=== PATIENT | female | born 1950 | race Caucasian/White ===

== ENCOUNTER 2020-05-25 14:21 | Outpatient (CLI) | payer OTHER, SELFPAY ==
--- NOTE | ~2020-05-25 | MM_ITS ---
EXAMINATION: MM screening teresa BI w ro HISTORY: Screening TECHNIQUE: Craniocaudal and mediolateral oblique 3-D tomosynthesis images were obtained and synthetic 2-D images were generated. CAD analysis was submitted and interpreted. COMPARISON: Comparison to multiple prior studies sequentially, with oldest reviewed study dated 09/2013. BREAST PARENCHYMAL COMPOSITION: The breasts are heterogeneously dense, which may obscure small masses . FINDINGS: There is no evidence of suspicious mass, calcification, or architectural distortion to sugg est malignancy in either breast. There has been no suspicious interval change. IMPRESSION: 1. No mammographic evidence of malignancy. 2. Recommend routine screening mammography in one year. BI-RADS Category 1: Negative Reviewed, dictated and finalized at location A.
== END 2020-05-25 14:22 | disposition home or self-care (01) ==
PROVIDERS: PCP Internal Medicine; Visit Provider Internal Medicine
DX: Z12.31 Encounter for screening mammogram for malignant neoplasm of breast (principal)
CPT/HCPCS: 77063; 77067

== ENCOUNTER 2020-07-18 01:15 | Emergency (ER) | payer OTHER, SELFPAY ==
--- NOTE | ~2020-07-18 | XR_ITS ---
EXAMINATION: XR ankle RT 2V DATE: 07/18/2020 02:24 INDICATION: Postreduction right ankle fracture TECHNIQUE: Anteroposterior, oblique, mortise, and lateral views of the right ankle were obtained. COMPARISON: None. FINDINGS: And/or reduction and splinting of the previously detailed comminuted fractures of the distal right ti aneudy and fibula. No significant change in the approximately 8 mm posterolateral displacement with slig ht decrease in now approximately 20 degrees lateral angulation. Normal alignment and joint spaces in the visualized right forefoot. Plantar calcaneal spur. IMPRESSION: 1. Mild decrease in now approximately 20 degrees lateral angulation and unchanged approximately 8 mm posterolateral displacement of the comminuted extra articular fractures of the distal right tibia and fibula. Reviewed, dictated and finalized at location A. IMPRESSION: 1. Mild decrease in now approximately 20 degrees lateral angulation and unchang ed approximately 8 mm posterolateral displacement of the comminuted extra artic ular fractures of the distal right tibia and fibula.
--- NOTE | ~2020-07-18 | XR_ITS ---
EXAMINATION: XR ankle RT min 3V DATE: 07/18/2020 01:48 INDICATION: Right ankle pain post fall TECHNIQUE: Anteroposterior, oblique, mortise, and lateral views of the right ankle were obtained. COMPARISON: None. FINDINGS: There are oblique fracture extending across the metaphyseal regions of the distal right tibia and fib adi. Both fractures are comminuted, the fibular fracture more severely. Both fractures are angulated approximately 30 degrees laterally along with 6-7 mm posterior displacement and mild anterior angulat ion. The distal fragments of the intervening talar dome remain in normal internal alignment with a co ngruent ankle mortise. No other fractures in the right foot. Joint spaces are normal. Large plantar c alcaneal spur and small Achilles calcaneal enthesophyte. IMPRESSION: 1. Comminuted extra-articular fractures of the distal right tibia and fibula. Reviewed, dictated and finalized at location A.
[2020-07-18 01:18] VITALS: BP 146/63; PULSE 82; RESP 18; TEMP 36.6; O2SAT 95
--- NOTE | 2020-07-18 02:06 | ED.FALL ---
HPI - Fall General Chief Complaint: Fall Stated Complaint: Fall Time Seen by Provider: 07/18/20 01:24 Source: RN notes reviewed History of Present Illness HPI Narrative: Patient presents emergency department from home for right ankle pain. Patient states that this evening she was stepping up onto her deck when she missed the step and rolled her right ankle. At that time the patient had pain in the ankle is unable to bear weight. She denies falling to the ground or striking her head denies any other injuries. The patient does state that she was drinking tonight. Patient denies any numbness or tingling in the extremities or any other symptoms Related Data Allergies Allergy/AdvReac Type Severity Reaction Status Date / Time amoxicillin Allergy Unknown Abdominal Verified 07/31/19 13:39 pain erythromycin base Allergy Unknown Verified 07/31/19 13:39 morphine Allergy Unknown Verified 07/31/19 13:39 clavulanic acid AdvReac Mild GI UPSET Unverified 07/31/19 13:39 Penicillins AdvReac Mild GI UPSET Unverified 07/31/19 13:39 BETALACTAMASEIN Allergy Mild GI UPSET Uncoded 07/31/19 13:39 Review of Systems Review of Systems: Narrative: Gen.: Denies fevers or chills ENT: Denies congestion Respiratory: Denies shortness of breath or cough CV: Denies chest pain or palpitations GI: Denies abdominal pain nausea, emesis or diarrhea Musculoskeletal: See HPI Neuro: Denies numbness, tingling, weakness or focal weakness Skin: Denies rash Except as documented, all other systems reviewed and negative [facility] Past Medical History Medical History (Updated 07/18/20 @ 03:15 by Tushar Stephens DO) Accelerated essential hypertension Family History Family History (System 07/31/19 @ 13:39 by Leah Coker) Mother Hypertension Social History Social History (Updated 07/18/20 @ 02:08 by Tushar Stephens DO) Smoking status: Current some day smoker Second hand tobacco smoke exposure: No Alcohol intake: current Exam Narrative: Exam Narrative: APPEARANCE: No acute distress, nontoxic, resting in bed EYES: EOMI HEENT: Normocephalic, atraumatic, OMM RESPIRATORY: No respiratory distress Clear to auscultation bilaterally with no rhonchi wheezing or rales. CARDIOVASCULAR: Regular rate and rhythm without murmurs rubs or gallops. ABDOMINAL: Soft, nontender, MUSCULOSKELETAl: Moves all extremities. No clubbing, cyanosis right ankle has deformity noted with tenderness palpation there is no tenderness of the foot or the proximal fibula no tenderness of the right knee or hip, dorsalis pedis pulse 2+, neurovascular intact small overlying abrasion over the anterior medial ankle that is superficial with no deep open wound no bleeding no other small abrasion over the anterior garcia with no open wound or active bleeding NEURO: Awake and alert. Following commands, speech normal, no focal deficits SKIN:: Warm, dry. No rashes lesions or abrasions PSYCHIATRIC: Normal affect/mood, Course Course Emergency Course: Called and discussed with orthopedics Dr. Russell presentation work-up. I will review imaging. At this time recommends transfer to higher level of care secondary to orthopedic needs Discussed with patient request [facility] at this time Called and discussed with [facility] patient is accepted by Dr. Parish to the emergency department Vital Signs Vital signs: Vital Signs Temperature 98 F 07/18/20 01:18 Pulse Rate 82 07/18/20 01:18 Respiratory Rate 18 07/18/20 01:18 Blood Pressure 146/63 H 07/18/20 01:18 Pulse Oximetry 95 07/18/20 01:18 Temperature 98 F 07/18/20 01:18 Pulse Rate 80 07/18/20 03:20 Respiratory Rate 19 07/18/20 03:20 Blood Pressure 137/77 07/18/20 03:20 Pulse Oximetry 99 07/18/20 03:20 Procedures Orthopedic Splinting/Casting Injury #1: Additional Comments: Patient with posterior short leg and sugar tong splint placed by myself in the emergency department. Patient was
--- NOTE | 2020-07-18 03:02 | PC.NURSE ---
Called [facility] to request transport to [place]. ETA [id number]
[2020-07-18 03:20] VITALS: BP 137/77; PULSE 80; RESP 19; O2SAT 99
[2020-07-18 03:37] VITALS: BP 148/70; PULSE 80; RESP 16; O2SAT 99
--- NOTE | 2020-07-30 19:16 | PC.NURSE ---
LATE ENTRY [facility] This note is being entered to document information to the patient's record. The following information was omitted on [07/30/2020], by [mayur khan].
== END 2020-07-18 03:38 | disposition short-term general hospital (02) ==
PROVIDERS: Emergency Provider Emergency Medicine; PCP Internal Medicine
DX: S82.391A Other fracture of lower end of right tibia, initial encounter for closed fracture (principal); S82.831A Other fracture of upper and lower end of right fibula, initial encounter for closed fracture; I10 Essential (primary) hypertension; F17.200 Nicotine dependence, unspecified, uncomplicated; X50.9XXA Other and unspecified overexertion or strenuous movements or postures, initial encounter
CPT/HCPCS: 27788; 27825; 27840; 29515; 73600; 73610; 96374; 99285; J0131

== ENCOUNTER 2020-08-22 19:03 | Emergency (ER) | payer OTHER, SELFPAY ==
[2020-08-22] VITALS (18 sets, daily range): BP systolic 137–159; BP diastolic 71–105; PULSE 71–95; RESP 11–23; TEMP 36.2; O2SAT 95–99
--- NOTE | ~2020-08-22 | XR_ITS ---
EXAMINATION: XR chest 1V DATE: 08/22/2020 19:42 INDICATION: Weakness. Dizziness. TECHNIQUE: A single frontal view of the chest was obtained. COMPARISON: Chest 2 views 05/07/2014, CT abdomen 08/04/2014, chest CT 10/06/2009 FINDINGS: There are chronic airspace opacities in right middle lobe and lingula. No pleural effusion or pneumothorax. The heart size is normal. IMPRESSION: 1. Chronic airspace opacities in right middle lobe and lingula, likely chronic infection and scarring . Reviewed, dictated and finalized at location A. [employer] IMPRESSION: 1. Chronic airspace opacities in right middle lobe and lingula, likely chronic infection and scarring.
--- NOTE | ~2020-08-22 | CT_ITS ---
EXAMINATION: CT brain wo con DATE: 08/22/2020 19:37 INDICATION: Dizziness. TECHNIQUE: Computed tomography (CT) of the head was performed without intravenous contrast. The mA wa s adjusted according to patient size. Iterative reconstruction technique was employed. The dose-lengt h product was 605.33 mGy-cm. COMPARISON: None FINDINGS: There are scattered areas of low attenuation in the cerebral white matter, which is within normal limits for the patient's age. There is no intracranial hemorrhage, acute infarction, or abnorm al intracranial mass lesion. The ventricles are normal in size. There is mild mucosal thickening in t he paranasal sinuses. There are likely changes of ocular lens replacement surgeries. The mastoid air cells are normal. IMPRESSION: 1. Normal aging brain. Reviewed, dictated and finalized at location A. HORE WIND OPERATIONS MANAGER IMPRESSION: 1. Normal aging brain.
--- NOTE | 2020-08-22 19:21 | ECG_ITS ---
Measurements Intervals [place] Rate: 82 P: 46 UT: 144 QRS: 4 QRSD: 82 T: 56 QT: 415 QTc: 485 Interpretive Statements SINUS RHYTHM POSSIBLE LEFT ATRIAL ENLARGEMENT CANNOT RULE OUT SEPTAL INFARCT, AGE INDETERMINATE BORDERLINE ST-T WAVE ABNORMALITY- INF/LAT LEADS ABNORMAL ECG Electronically Signed On 08-23-2020 7:17:13 FUEL CELL ENGINEER by Addy Samson D.O.
--- NOTE | 2020-08-22 19:24 | ED.GENADULT ---
HPI - General Adult General Chief complaint: Nausea/Vomiting/Diarrhea Stated complaint: dizzy, headache, nausea Time Seen by Provider: 08/22/20 19:15 History of Present Illness HPI narrative: Patient is a 70-year-old female who presents emerge department with chief complaint of dizziness. Patient reports symptoms began this morning approximately 5 AM when she woke up. Patient describes the dizziness as a lightheaded sensation and also reports that she feels nauseated. Patient denies rotational symptoms denies fever denies chills denies cough shortness of breath or chest pain. Patient reports has had no diarrhea reports no recent illness. The patient reports she has a past medical history significant for hypertension and takes losartan and hydrochlorothiazide. Related Data Allergies Allergy/AdvReac Type Severity Reaction Status Date / Time amoxicillin Allergy Unknown Abdominal Verified 08/22/20 19:22 pain erythromycin base Allergy Unknown Gastrointestinal Verified 08/22/20 19:22 Upset morphine Allergy Unknown Gastrointestinal Verified 08/22/20 19:22 Upset clavulanic acid AdvReac Mild GI UPSET Verified 08/22/20 19:22 Penicillins AdvReac Mild GI UPSET Verified 08/22/20 19:22 BETALACTAMASEIN Allergy Mild GI UPSET Uncoded 07/31/19 13:39 Review of Systems Review of Systems: Narrative: CONSTITUTIONAL: Denies fever, chills, or sweats. EYES: Denies visual changes, redness, or discharge. ENT: Denies rhinorrhea, congestion, sore throat, or otalgia. CARDIOVASCULAR: Denies chest pain, palpitations, or edema. RESPIRATORY: Denies cough or dyspnea. GASTROINTESTINAL: Denies abdominal pain, nausea, vomiting, or diarrhea. GENITOURINARY: Denies dysuria or hematuria. SKIN: Denies rash or itching. MUSCULOSKELETAL: Denies back pain, joint pain, or myalgia. NEUROLOGIC: Denies headache, numbness, or weakness. PSYCHIATRIC: Denies anxiety or depression. A 10 system review of systems was completed on the patient and is negative except for what is stated in the HPI. Nursing and ancillary documentation was reviewed. [facility] Past Medical History Medical History Accelerated essential hypertension Family History Family History Mother Hypertension Social History Social History Smoking status: Current some day smoker Second hand tobacco smoke exposure: No Alcohol intake: current Exam Narrative: Exam Narrative: GENERAL: Well-appearing, well-nourished, and in no acute distress. HEAD: Normocephalic, atraumatic. EYES: PERRLA and EOMI. ENT: Nares clear, no rhinorrhea or epistaxis. Mucous membranes moist. NECK: Supple. CHEST: Clear to auscultation. No respiratory distress. HEART: Regular rate and rhythm. No murmur heard. Normal peripheral pulses. ABDOMEN: Soft, nontender, nondistended, normal active bowel sounds. EXTREMITIES: Normal range of motion. No edema. SKIN: Warm, dry, no rash. NEURO: No focal deficits. Alert and oriented x3. PSYCH: Normal mood and affect. Course Course Emergency Course: After fluids Antivert and antiemetics the patient is feeling much better at this time patient will be discharged home on a course of Antivert and antiemetics. Vital Signs Vital signs: Vital Signs Temperature 36.2 C L 08/22/20 19:08 Pulse Rate 95 08/22/20 19:08 Respiratory Rate 20 08/22/20 19:08 Blood Pressure 137/79 08/22/20 19:08 Pulse Oximetry 98 08/22/20 19:08 Temperature 36.2 C L 08/22/20 19:08 Pulse Rate 72 08/22/20 21:45 Respiratory Rate 14 08/22/20 21:32 Blood Pressure 147/71 H 08/22/20 21:32 Pulse Oximetry 97 08/22/20 20:45 Medical Decision Making Vital Signs Vital Signs: Vital Signs Temperature 36.2 C L 08/22/20 19:08 Pulse Rate 95 08/22/20 19:08 Respiratory Rate 20 08/22/20 19:08 Blood Pr
--- NOTE | 2020-08-22 19:31 | PC.NURSE ---
Patient taken to CT.
[2020-08-22] MEDS: MECLIZINE HCL 25 MG TABLET 50 MG PO (19:43)
[2020-08-22] MEDS: PROCHLORPERAZINE EDISYLATE 10 MG/2 ML VIAL IV PUSH (19:43)
[2020-08-22] MEDS: SODIUM CHLORIDE 0.9% IV 1,000 ML 999 ML IV CONT (19:43)
[2020-08-22] MEDS: diphenhydrAMINE HCl INJ 50 MG/ML VIAL 25 MG IV PUSH ×2 (19:44→21:05)
[2020-08-22 19:55] LABS: Basophils Percent Auto 0.2 % (0.2-1.2); Eosinophils Absolute Auto 0.1 K/mm3 (0-0.3); Eosinophils Percent Auto 0.6 % (0-4.4); Hematocrit 36.6 % (37.0-47.0); Hemoglobin 12.7 g/dL (12.0-15.0); Immature Granulocyte Absolute 0.03 K/mm3 (0.00-0.031); Immature Granulocyte Percent A 0.3 % (0-0.5); Lymphocytes Absolute Auto 2.45 K/mm3 (0.9-3.2); Lymphocytes Percent Auto 27.7 % (18.3-44.2); Mean Corpuscular HGB Conc 34.7 g/dl (32-36); Mean Corpuscular Hemoglobin 33.2 pg (26-34); Mean Corpuscular Volume 95.8 fl (80-100); Mean Platelet Volume 10.4 fl (7.4-10.4); Monocytes Absolute Auto 0.7 K/mm3 (0.1-0.6); Monocytes Percent Auto 8.2 % (2.6-8.5); Neutrophils Absolute Auto 5.6 K/mm3 (1.3-6.7); Platelet Count Result 249 k/mm3 (150-375); Red Blood Count 3.82 M/mm3 (4.2-5.4); Red Cell Distribution Width 11.8 % (11.5-14.5); White Blood Count 8.9 K/mm3 (4.5-10.0)
[2020-08-22 20:06] LABS: Alanine Aminotransferase 21 U/L (4-35); Albumin Level 4.3 g/dL (3.5-5.1); Alkaline Phosphatase 149 U/L (38-126); Anion Gap 15 mmol/L (8-16); Aspartate Amino Transferase 39 U/L (14-36); Bilirubin,Total 0.5 mg/dL (0.2-1.3); Blood Urea Nitrogen 13 mg/dL (7-17); Carbon Dioxide 21 mmol/L (22-30); Chloride 99 mmol/L (98-107); Estimated CRCL calculation 63 ml/min; Estimated Glomerular Filt Rate > 60; Glucose 124 mg/dL (65-105); Potassium 3.6 mmol/L (3.4-5.0); Sodium 135 mmol/L (137-145)
--- NOTE | 2020-08-22 20:16 | PC.NURSE ---
Patient unable to provide a urine sample at this time. Patient refusing straight cath.
[2020-08-22 20:18] LABS: Troponin I < 0.012 ng/mL (0.000-0.034)
[2020-08-22 21:06] LABS: Add Urine Microscopic? YES; Appearance Urine Clear (Clear); Bacteria Urine Trace /hpf; Bilirubin Urine Negative (Negative); Blood Urine Negative (Negative); Color Urine Yellow (Yellow); Glucose Urine UA Negative (Negative); Ketones Urine 1+ mg/dL (Negative); Leukocyte Esterase Ur Negative LEU/UL (Negative); Mucus Urine Rare /lpf; Nitrate Urine Negative (Negative); Protein Urine Negative (Negative); RBC Urine 0-2 /hpf (0-2); Specific Grav Ur 1.014 (1.001-1.035); Squamous Epithelial Cell Urine Few /hpf (Few); Urobilinogen Urine Negative mg/dL (<2.0); WBC Urine 0-3 /hpf
[2020-08-22] MEDS: LORazepam INJ (*CRX) 2 MG/ML VIAL 0.5 MG IV PUSH (21:49)
== END 2020-08-22 22:14 | disposition home or self-care (01) ==
PROVIDERS: Emergency Provider Emergency Medicine; PCP Internal Medicine
DX: R42 Dizziness and giddiness (principal); I10 Essential (primary) hypertension; F17.200 Nicotine dependence, unspecified, uncomplicated
CPT/HCPCS: 36415; 70450; 71045; 80053; 81001; 84484; 85025; 93005; 96361; 96374; 96375; 96376; 99284; A9270; J0780; J1200; J2060; J7030

== ENCOUNTER 2020-10-12 16:33 | Emergency (ER) | payer OTHER, SELFPAY ==
--- NOTE | ~2020-10-12 | XR_ITS ---
EXAMINATION: XR chest 1V portable INDICATION: Chest pain and shortness of breath TECHNIQUE: Portable AP chest at 2023 hours COMPARISON: 08/22/2020 FINDINGS: There are minimal airspace opacities of the lung bases. No pleural effusion or pneumothorax is identified. The cardiomediastinal silhouette is normal. Healed bilateral rib fractures are noted. IMPRESSION: 1. Minimal bibasilar airspace opacities, consistent with atelectasis versus pneumonia. Reviewed, dictated and finalized at location A. ENTIVE MEDICINE OFFICER IMPRESSION: 1. Minimal bibasilar airspace opacities, consistent with atelectasis versus pne umonia.
--- NOTE | ~2020-10-12 | CT_ITS ---
EXAMINATION: CTA chest PE protocol DATE: 10/12/2020 21:31 INDICATION: Chest pain TECHNIQUE: Computed tomography angiography (CTA) of the chest was performed with 100 mL Omnipaque-350 intravenous contrast timed to evaluate the pulmonary arteries. Coronal maximum intensity projection 3D-reconstructions were created by the technologist. The dose-length product (DLP) was 267.69 mGy-cm. Automated exposure control and iterative reconstruction technique were employed. COMPARISON: 07/02/2008 FINDINGS: The pulmonary arteries are well-opacified. No pulmonary embolism is identified. There is mi ld emphysema. Patchy airspace opacities are present throughout the lungs. There is no pleural effusio n or pneumothorax. A moderate-sized sliding hiatal hernia is present. There is circumferential wall t hickening of the distal esophagus. There is mild right hilar lymphadenopathy. The heart size is david l. Calcified coronary artery atherosclerosis is noted. There are changes of fundoplication. IMPRESSION: 1. No pulmonary embolism. 2. Patchy multifocal airspace opacities, consistent with pneumonia. Mild right hilar lymphadenopathy is likely reactive. 3. Moderate-sized hiatal hernia. 4. Circumferential esophageal wall thickening which may reflect esophagitis. Follow-up with endoscopy is recommended. Reviewed, dictated and finalized at location A. ER CONTORT OPERATOR IMPRESSION: 1. No pulmonary embolism. 2. Patchy multifocal airspace opacities, consistent with pneumonia. Mild right hilar lymphadenopathy is likely reactive. 3. Moderate-sized hiatal hernia. 4. Circumferential esophageal wall thickening which may reflect esophagitis. Fo llow-up with endoscopy is recommended.
--- NOTE | 2020-10-12 16:33 | ECG_ITS ---
Measurements Intervals [place] Rate: 107 P: 59 SC: 140 QRS: 37 QRSD: 89 T: 18 QT: 413 QTc: 553 Interpretive Statements SINUS TACHYCARDIA POSSIBLE LEFT ATRIAL ENLARGEMENT BASELINE ARTIFACT- I, II, III, AVR, AVL, AVF, V1-V6 ABNORMAL ECG Electronically Signed On 10-12-2020 16:48:46 RACK WORKER by Addy Samson D.O.
[2020-10-12 16:35] VITALS: BP 171/100; PULSE 110; RESP 20; TEMP 35.9; O2SAT 100
[2020-10-12 16:49] LABS: Basophils Absolute Auto 0.1 K/mm3 (0.0-0.1); Basophils Percent Auto 0.4 % (0.2-1.2); Eosinophils Percent Auto 0.1 % (0-4.4); Hematocrit 39.7 % (37.0-47.0); Hemoglobin 13.2 g/dL (12.0-15.0); Immature Granulocyte Absolute 0.04 K/mm3 (0.00-0.031); Immature Granulocyte Percent A 0.3 % (0-0.5); Lymphocytes Absolute Auto 1.02 K/mm3 (0.9-3.2); Lymphocytes Percent Auto 8.1 % (18.3-44.2); Mean Corpuscular HGB Conc 33.2 g/dl (32-36); Mean Corpuscular Hemoglobin 33.2 pg (26-34); Mean Platelet Volume 9.8 fl (7.4-10.4); Monocytes Absolute Auto 0.5 K/mm3 (0.1-0.6); Neutrophils Percent Auto 87.1 % (45.5-73.1); Platelet Count Result 256 k/mm3 (150-375); Red Blood Count 3.97 M/mm3 (4.2-5.4); Red Cell Distribution Width 15.4 % (11.5-14.5); White Blood Count 12.6 K/mm3 (4.5-10.0)
[2020-10-12 16:59] LABS: INR 0.9; Partial Thromboplastin Time 24.8 SECONDS (22.3-36.8); Prothrombin Time 12.8 Seconds (11.1-14.7)
[2020-10-12 17:01] LABS: Anion Gap 14 mmol/L (8-16); Blood Urea Nitrogen 18 mg/dL (7-17); Carbon Dioxide 22 mmol/L (22-30); Chloride 100 mmol/L (98-107); Estimated CRCL calculation 63 ml/min; Estimated Glomerular Filt Rate > 60; Glucose 193 mg/dL (65-105); Potassium 3.6 mmol/L (3.4-5.0); Sodium 136 mmol/L (137-145)
[2020-10-12 17:13] LABS: Troponin I < 0.012 ng/mL (0.000-0.034)
--- NOTE | 2020-10-12 19:55 | ED.GENADULT ---
HPI - General Adult General Chief complaint: Chest Pain Stated complaint: CP Time Seen by Provider: 10/12/20 19:48 Source: patient History of Present Illness HPI narrative: Patient is a 70 y/o female complaining of chest pain starting about 10:00 AM this morning. She describes her pain as aching and rates it as 10/10. She states that her pain radiates to her shoulders and back. There is no alleviating or exacerbating factor. She took TUMs which did not help. She denies any SOB, cough or fever. Related Data Allergies Allergy/AdvReac Type Severity Reaction Status Date / Time amoxicillin Allergy Unknown Abdominal Verified 08/22/20 19:22 pain erythromycin base Allergy Unknown Gastrointestinal Verified 08/22/20 19:22 Upset morphine Allergy Unknown Gastrointestinal Verified 08/22/20 19:22 Upset clavulanic acid AdvReac Mild GI UPSET Verified 08/22/20 19:22 Penicillins AdvReac Mild GI UPSET Verified 08/22/20 19:22 BETALACTAMASEIN Allergy Mild GI UPSET Uncoded 07/31/19 13:39 Review of Systems Constitutional: Constitutional: Denies chills, Denies fever(s), Denies headache(s) and Denies weakness Eyes: Eyes: Denies blurry vision ENT: Denies headache(s) and Denies neck pain Cardiovascular: Cardiovascular: Reports chest pain and Denies dyspnea Respiratory: Respiratory: Denies cough and Denies dyspnea Gastrointestinal: Gastrointestinal: Denies abdominal pain, Denies diarrhea, Denies nausea and Denies vomiting Genitourinary: Genitourinary: Denies hematuria and Denies dysuria Musculoskeletal: Musculoskeletal: Denies back pain and Denies neck pain Neurologic: Denies headache(s) and Denies weakness [facility] Past Medical History Medical History Accelerated essential hypertension Family History Family History Mother Hypertension Social History Social History Smoking status: Current some day smoker Second hand tobacco smoke exposure: No Alcohol intake: current Exam Const: General: no acute distress and well developed Orientation/consciousness: oriented to person, oriented to place, oriented to time and patient oriented x3 HENMT: Head: normocephalic Ears: external ears normal General nose exam: Normal external nose present Eyes: General: appearance normal, both eyes and all related structures Conjunctivae: conjunctivae normal Neck: Neck: normal visual inspection and full ROM Chest: Chest palpation & inspection: normal inspection of the chest and no tenderness Resp: Effort & Inspection: normal respiratory effort Auscultation: clear to auscultation bilaterally Cardio: Rate: regular rate Rhythm: regular rhythm GI: GI Palp: No abdominal tenderness and Yes Soft to palpation Skin: General skin exam: normal color and turgor normal Neuro: General: oriented to person, oriented to place, oriented to time and patient oriented x3 Cognition (Neuro): normal cognition Extrem: General: normal to inspection, full ROM and no pedal edema Psych: Appearance: grossly normal Mental Status: mental status grossly normal Affect: normal affect Course Vital Signs Vital signs: Vital Signs Temperature 35.9 C L 10/12/20 16:35 Pulse Rate 110 H 10/12/20 16:35 Respiratory Rate 20 10/12/20 16:35 Blood Pressure 171/100 H 10/12/20 16:35 Pulse Oximetry 100 10/12/20 16:35 Temperature 37.0 C 10/13/20 00:15 Pulse Rate 83 10/13/20 00:15 Respiratory Rate 16 10/13/20 00:15 Blood Pressure 172/84 H 10/13/20 00:15 Pulse Oximetry 96 10/13/20 00:15 Medical Decision Making Vital Signs Vital Signs: Vital Signs Temperature 35.9 C L 10/12/20 16:35 Pulse Rate 110 H 10/12/20 16:35 Respiratory Rate 20 10/12/20 16:35 Blood Pressure 171/100 H 10/12/20 16:35 Pulse Oximetry 100 10/12/20 16:35 Temperature 37.0 C 10/13/20 00:15
[2020-10-12 19:58] VITALS: BP 203/104; PULSE 98; RESP 26; O2SAT 100
[2020-10-12 20:00] VITALS: PULSE 94
[2020-10-12 20:24] LABS: D Dimer 1.35 ug/mL (<0.48)
[2020-10-12] MEDS: ASPIRIN 81 MG CHEWABLE TABLET 324 MG PO (20:42)
[2020-10-12] MEDS: LORazepam INJ (*CRX) 2 MG/ML VIAL 1 MG IV PUSH (20:43)
[2020-10-12] MEDS: NITROGLYCERIN OINTMENT 1 INCH DOSE TRANSDERM (20:43)
[2020-10-12 20:45] LABS: Troponin I 0.012 ng/mL (0.000-0.034)
[2020-10-12 21:10] VITALS: BP 192/104; PULSE 92; RESP 19; O2SAT 94
--- NOTE | 2020-10-12 21:24 | PC.NURSE ---
Patient to radiology
[2020-10-12] MEDS: LABETALOL HCL INJ 100 MG/20 ML VIAL 20 MG IV PUSH (21:44)
[2020-10-12 22:20] VITALS: BP 178/94; PULSE 78; RESP 19; O2SAT 98
[2020-10-12] MEDS: amLODIPine BESYLATE 5 MG TABLET 10 MG PO (23:02)
[2020-10-12] MEDS: BELLADONNA ALK/PHENOB ELIX 10 ML, MAG HYDROX/ALUMINUM HYD/SIMETH 30 ML, LIDOCAINE HCL 2... PO (23:03)
[2020-10-12 23:20] VITALS: BP 187/96; PULSE 77; RESP 15; O2SAT 98
[2020-10-12 23:44] LABS: Troponin I 0.028 ng/mL (0.000-0.034)
[2020-10-13 00:15] VITALS: BP 172/84; PULSE 83; RESP 16; TEMP 37; O2SAT 96
[2020-10-13 17:28] LABS: SARS-CoV-2 RNA PCR Positive
== END 2020-10-13 00:17 | disposition home or self-care (01) ==
PROVIDERS: Emergency Provider Emergency Medicine; PCP Internal Medicine
DX: U07.1 COVID-19 (principal); R07.9 Chest pain, unspecified; K20.90 Esophagitis, unspecified without bleeding; I10 Essential (primary) hypertension; F17.200 Nicotine dependence, unspecified, uncomplicated; R00.0 Tachycardia, unspecified; R94.31 Abnormal electrocardiogram [ECG] [EKG]; R91.8 Other nonspecific abnormal finding of lung field
CPT/HCPCS: 36415; 71045; 71275; 80048; 84484; 85025; 85380; 85610; 85730; 93005; 96374; 96375; 99284; A9270; C9803; J2060; Q9967; U0003; U0005

== ENCOUNTER 2021-03-12 11:31 | Outpatient (CLI) | payer OTHER, SELFPAY ==
--- NOTE | ~2021-03-12 | XR_ITS ---
XR chest 2V DATE: 03/12/2021 11:50 INDICATION: Dyspnea on exertion TECHNIQUE: PA and lateral views COMPARISON: 10/12/2020 CT pulmonary scan Portable AP chest on 10/12/2020 05/07/2014 PA and lateral chest FINDINGS: Bilateral hyperinflation suggesting COPD. Chronic middle lobe atelectasis, dating back to 05/07/2014.. There is minimal atelectasis or scarring at the lung bases. The lungs otherwise appear clear of infil trate or consolidation compared 05/07/2014. Normal heart size. Aortic tortuosity. Diffuse osteopenia. Old right seventh and 10th and left seventh and eighth rib healed fracture deformities. IMPRESSION: Bilateral hyperinflation suggesting COPD Chronic middle lobe atelectasis Minimal bibasilar atelectasis or scarring Reviewed, dictated and finalized at location A.
== END 2021-03-12 11:32 | disposition home or self-care (01) ==
LOC: ANHIMG 11:34
PROVIDERS: PCP Internal Medicine; Visit Provider Internal Medicine
DX: R06.00 Dyspnea, unspecified (principal); R91.8 Other nonspecific abnormal finding of lung field
CPT/HCPCS: 71046

== ENCOUNTER 2021-03-14 09:21 | Outpatient (CLI) | payer OTHER, SELFPAY ==
[2021-03-14 09:52] LABS: Alanine Aminotransferase 11 U/L (4-35); Albumin Level 4.6 g/dL (3.5-5.1); Alkaline Phosphatase 115 U/L (38-126); Anion Gap 10 mmol/L (8-16); Aspartate Amino Transferase 31 U/L (14-36); Bilirubin,Total 0.9 mg/dL (0.2-1.3); Blood Urea Nitrogen 21 mg/dL (7-17); Calcium 10.2 mg/dL (8.4-10.2); Carbon Dioxide 28 mmol/L (22-30); Chloride 103 mmol/L (98-107); Estimated Glomerular Filt Rate > 60; Glucose 87 mg/dL (65-105); Potassium 4.3 mmol/L (3.4-5.0); Sodium 141 mmol/L (137-145)
== END 2021-03-14 09:22 | disposition home or self-care (01) ==
PROVIDERS: PCP Internal Medicine; Visit Provider Internal Medicine
DX: I10 Essential (primary) hypertension (principal); Z79.899 Other long term (current) drug therapy
CPT/HCPCS: 36415; 80053

== ENCOUNTER 2021-04-11 12:37 | Outpatient (CLI) | payer OTHER, SELFPAY ==
[2021-04-11 12:59] LABS: Add Urine Microscopic? NO; Appearance Urine Clear (Clear); Bilirubin Urine Negative (Negative); Blood Urine Negative (Negative); Color Urine Yellow (Yellow); Glucose Urine UA Negative (Negative); Ketones Urine Negative (Negative); Leukocyte Esterase Ur Negative LEU/UL (Negative); Nitrate Urine Negative (Negative); Protein Urine Negative (Negative); Urobilinogen Urine Negative mg/dL (<2.0)
== END 2021-04-11 12:38 | disposition home or self-care (01) ==
LOC: ANHLAB 12:39
PROVIDERS: PCP Internal Medicine; Visit Provider Internal Medicine
DX: R30.0 Dysuria (principal)
CPT/HCPCS: 81003

== ENCOUNTER 2021-05-03 08:40 | Outpatient (CLI) | payer OTHER, SELFPAY ==
--- NOTE | ~2021-05-03 | NM_ITS ---
EXAMINATION: NM prerna stress w perfusion DATE: 05/03/2021 10:40 INDICATION: Dyspnea on exertion. TECHNIQUE: Rest images were obtained following intravenous administration of 10 mCi Tc99m tetrofosmin (Myoview). The patient was infused intravenously with Lexiscan (regadenoson). Then, 31.9 mCi Tc99m t etrofosmin (Myoview) was administered intravenously, and stress images were obtained. Data was recons tructed into short axis and horizontal and vertical long axis SPECT images. Gated SPECT images were a lso obtained. COMPARISON: None. FINDINGS: There is no definite reversible or fixed perfusion abnormality to suggest ischemia or infar ction. There is no segmental wall motion abnormality. Left ventricular ejection fraction measures > 70%. IMPRESSION: 1. No definite ischemia or infarct. 2. Normal left ventricular ejection fraction measuring >70%. Reviewed, dictated and finalized at location A.
--- NOTE | 2021-05-03 08:52 | EST_ITS ---
Patient Info Name: Lorna Gracia Age: 70 years : 1950 Gender: Female Ht: 64 in Wt: 122 lbs BSA: 1.58 m2 HR: 62 bpm BP: 154 / 77 mmHg Heart Rhythm: Sinus Rhythm Exam Date: 05/03/2021 9:46 AM Exam Location: [facility] Stress Patient Status: Outpatient Admit Date: 05/03/2021 Staff Ordering Physician: Ryder Charles DO Attending Provider: Ryder Charles DO Exam Type: CA stress prerna w NM Study Info A regadenoson stress test was performed. Summary 1. 1. Negative lexiscan stress test for ischemic ST changes by ECG criteria. 2. 2. Baseline hypertension. 3. 3. Nuclear scan to follow and will be reported separately. Please correlate with it. 4. 4. Patient informed of the above results. Protocol: Lexiscan Stress ECG Details Stage: REST Duration (min): 2 min : 0 sec HR (bpm): 62 SBP (mmHg): 154 DBP (mmHg): 77 Stage: REST Duration (min): 10 min : 16 sec HR (bpm): 64 SBP (mmHg): 154 DBP (mmHg): 77 Stage: STAGE 1 Duration (min): 0 min : 59 sec HR (bpm): 91 SBP (mmHg): 171 DBP (mmHg): 83 Stage: RECOVERY Duration (min): 1 min : 0 sec HR (bpm): 102 SBP (mmHg): 171 DBP (mmHg): 83 Stage: RECOVERY Duration (min): 2 min : 0 sec HR (bpm): 100 SBP (mmHg): 171 DBP (mmHg): 83 Stage: RECOVERY Duration (min): 2 min : 41 sec HR (bpm): 88 SBP (mmHg): 151 DBP (mmHg): 83 Rest HR: 64 bpm Peak HR: 102 bpm Rest Sys BP: 154 mmHg Peak Sys BP: 171 mmHg Max Pred HR: 149 bpm % Max Pred HR: 68 % Target HR: 127 bpm Max RPP: 17,442 bpm*mmHg Termination Reason: Completed protocol Cardiac Symptoms: Left shoulder pain, stomach discomfort Total Time: 1 min : 0 sec Rest Lopez BP: 77 mmHg Peak Lopez BP: 83 mmHg Total Dose: 0.4 mg Resting ECG Sinus rhythm, cannot r/o septal infarct, borderline ST abnormality in inferior leads. Stress ECG No ST changes. Arrhythmias None. Report Signatures
== END 2021-05-03 08:41 | disposition home or self-care (01) ==
LOC: ANHCARD 08:44
PROVIDERS: PCP Internal Medicine; Visit Provider Internal Medicine
DX: R06.00 Dyspnea, unspecified (principal)
CPT/HCPCS: 78452; 93017; A9502; J2785

== ENCOUNTER 2021-05-28 11:27 | Outpatient (CLI) | payer OTHER, SELFPAY ==
--- NOTE | ~2021-05-28 | MM_ITS ---
EXAMINATION: MM screening teresa BI w ro HISTORY: Screening mammogram TECHNIQUE: Craniocaudal and mediolateral oblique 3-D tomosynthesis images were obtained and synthetic 2-D images were generated. CAD analysis was submitted and interpreted. COMPARISON: 05/25/2020, 04/09/2019, 03/07/2018 bilateral digital screening mammogram examinations BREAST PARENCHYMAL COMPOSITION: The breasts are heterogeneously dense, which may obscure small masses . FINDINGS: There is a history of left partial mastectomy for malignancy in 2009. History of reduction mammoplasty in 2009. Bilateral benign calcifications. There is no evidence of suspicious mass, calcification, or architectural distortion to suggest malig cr in either breast. There has been no suspicious interval change. IMPRESSION: 1. No mammographic evidence of malignancy. 2. Recommend routine screening mammography in one year. BI-RADS Category 2: Benign finding(s). Reviewed, dictated and finalized at location A.
== END 2021-05-28 11:28 | disposition home or self-care (01) ==
LOC: ANHIMG 11:50
PROVIDERS: PCP Internal Medicine; Visit Provider Internal Medicine
DX: Z12.31 Encounter for screening mammogram for malignant neoplasm of breast (principal)
CPT/HCPCS: 77063; 77067

== ENCOUNTER 2021-11-13 13:17 | Emergency (ER) | payer OTHER, SELFPAY ==
--- NOTE | ~2021-11-13 | XR_ITS ---
XR knee RT min 4V 11/13/2021 13:53 INDICATION: Right knee pain PROCEDURE: 4 views right knee COMPARISON: No prior studies for comparison. FINDINGS: Fracture, dislocation or subluxation is not identified. The soft tissues appear within norm al limits. No foreign bodies are identified. IMPRESSION: 1: NO ACUTE BONE OR JOINT ABNORMALITY IDENTIFIED. Reviewed, dictated and finalized at location A. R AGENT
[2021-11-13 13:21] VITALS: BP 172/76; PULSE 82; RESP 18; TEMP 36.9; O2SAT 99
--- NOTE | 2021-11-13 14:50 | ED.FALL ---
HPI - Fall General Chief Complaint: Fall Stated Complaint: fall, r kneee pain Time Seen by Provider: 11/13/21 14:26 Source: patient Mode of arrival: ambulatory Limitations: no limitations History of Present Illness HPI Narrative: This is a 71 year old female who presents for evaluation of right knee pain. Patient states she accidentally slipped on smashed tomato that was on the floor at [facility]. She states her left left was under the cart. She was able to get up off the floor and walk around the store for short walk. She states on walking she felt that something was wrong with her right knee. She has pain to right anterior knee when she walks. She denies having any pain currently at rest while sitting in the bed. She denies hitting her head or LOC. She denies neck pain , back pain or rib pain. She also denies numbness or tingling. This injury occurred 2 hours ago . She also denies right ankle pain. Related Data Allergies Allergy/AdvReac Type Severity Reaction Status Date / Time amoxicillin Allergy Unknown Abdominal Verified 10/31/21 13:51 pain erythromycin base Allergy Unknown Gastrointestinal Verified 10/31/21 13:51 Upset morphine Allergy Unknown Gastrointestinal Verified 10/31/21 13:51 Upset Review of Systems Review of Systems: All systems reviewed & are unremarkable except as noted in HPI and below PMFSH Past Medical History Medical History (Updated 11/13/21 @ 14:56 by Mirian Jose MD) Accelerated essential hypertension Surgical History Surgical History (Updated 11/13/21 @ 14:53 by Mirian Jose MD) History of ankle surgery Family History Family History Mother Hypertension Social History Social History (Updated 10/31/21 @ 13:51 by Vandana Tapia) Smoking packs per day: 0.1 Smoking cigarettes per day: 2.0 Years smoked: 10 Smoking pack-years: 1.00 Smoking status: Light tobacco smoker Tobacco type: cigarettes Second hand tobacco smoke exposure: No Alcohol intake: current Drinks per week: 10 Substance use: never Substance use type: does not use Exam Const: General: no acute distress and alert Orientation/consciousness: patient oriented x3 HENMT: Head: normocephalic and atraumatic Eyes: EOM: EOMs intact bilaterally Neck: Neck: normal visual inspection and no lymphadenopathy Chest: Chest palpation & inspection: normal inspection of the chest Resp: Effort & Inspection: normal respiratory effort Neuro: General: patient oriented x3, moves all extremities and CN's II-XI intact bilaterally Extrem: Other: FROM to right hip and knee and ankle. No swelling or deformity. no bruising. Psych: Mental Status: mental status grossly normal Affect: normal affect Course Reevaluation(s) Reevaluation #1: I Discussed with patient radiologist report knee xray is unremarkable. No fracture or effusion. I have explained that although xray is unremarkable she will need to follow up in 1 week if pain continues. I discussed discharge plan of ice, NSAIDs, elevation and immobilization as needed. She declines knee immobilizer and crutches at this time. Date: 11/13/21 Time: 14:55 Vital Signs Vital signs: Vital Signs Temperature 98.5 F 11/13/21 13:21 Pulse Rate 82 11/13/21 13:21 Respiratory Rate 18 11/13/21 13:21 Blood Pressure 172/76 H 11/13/21 13:21 Pulse Oximetry 99 11/13/21 13:21 Temperature 98.5 F 11/13/21 13:21 Pulse Rate 82 11/13/21 13:21 Respiratory Rate 18 11/13/21 13:21 Blood Pressure 172/76 H 11/13/21 13:21 Pulse Oximetry 99 11/13/21 13:21 MDM - Fall Imaging Data Radiologist's impression: ITS Impressions Knee X-Ray 11/13/21 13:58 IMPRESSION: 1: NO ACUTE BONE OR JOINT ABNORMALITY IDENTIFIED. Discharge Plan Discharge Clinical Impression: Right knee sprain Qualifiers: Encounter type: initial encounter Patient Disp
--- NOTE | 2021-11-13 15:09 | PC.NURSE ---
Pt initially declined knee immobilizer, but requested immobilizer on discharge.
== END 2021-11-13 15:20 | disposition home or self-care (01) ==
LOC: ANHED 15:12
PROVIDERS: Emergency Provider General Practice; PCP Internal Medicine
DX: S83.91XA Sprain of unspecified site of right knee, initial encounter (principal); I10 Essential (primary) hypertension; F17.210 Nicotine dependence, cigarettes, uncomplicated; W01.0XXA Fall on same level from slipping, tripping and stumbling without subsequent striking against object, initial encounter
CPT/HCPCS: 73564; 99283

== ENCOUNTER 2022-05-04 07:52 | Outpatient (CLI) | payer OTHER, SELFPAY ==
[2022-05-04 08:22] LABS: Alanine Aminotransferase 12 U/L (6-35); Albumin Level 4.6 g/dL (3.5-5.1); Alkaline Phosphatase 125 U/L (38-126); Anion Gap 9 mmol/L (8-16); Aspartate Amino Transferase 26 U/L (14-36); Bilirubin,Total 0.6 mg/dL (0.2-1.3); Blood Urea Nitrogen 12 mg/dL (7-17); Calcium 10.2 mg/dL (8.4-10.2); Carbon Dioxide 29 mmol/L (22-30); Chloride 99 mmol/L (98-107); Cholesterol 180 mg/dL (0-200); Estimated Glomerular Filt Rate > 60; Glucose 110 mg/dL (65-110); HDL Direct 67 mg/dL; Potassium 4.3 mmol/L (3.4-5.0); Sodium 137 mmol/L (137-145); Triglycerides 96 mg/dL (<150)
[2022-05-04 08:33] LABS: LDL Cholesterol Direct 77 mg/dL
== END 2022-05-04 07:53 | disposition home or self-care (01) ==
LOC: ANHLAB 07:54
PROVIDERS: PCP Internal Medicine; Visit Provider Internal Medicine
DX: I10 Essential (primary) hypertension (principal); Z79.899 Other long term (current) drug therapy; Z13.220 Encounter for screening for lipoid disorders
CPT/HCPCS: 36415; 80053; 80061

== ENCOUNTER 2022-07-25 09:24 | Outpatient (CLI) | payer OTHER, SELFPAY ==
--- NOTE | ~2022-07-25 | MM_ITS ---
EXAMINATION: MM screening teresa BI w ro HISTORY: Screening TECHNIQUE: Craniocaudal and mediolateral oblique 3-D tomosynthesis images were obtained and synthetic 2-D images were generated. CAD analysis was submitted and interpreted. COMPARISON: Comparison to multiple prior studies sequentially, with oldest reviewed study dated 09/2015. BREAST PARENCHYMAL COMPOSITION: The breasts are heterogeneously dense, which may obscure small masses FINDINGS: There is no evidence of suspicious mass, calcification, or architectural distortion to sugg est malignancy in either breast. There has been no suspicious interval change. IMPRESSION: 1. No mammographic evidence of malignancy. 2. Recommend routine screening mammography in one year. BI-RADS Category 1: Negative Reviewed, dictated and finalized at location A.
== END 2022-07-25 09:25 | disposition home or self-care (01) ==
LOC: ANHIMG 09:26
PROVIDERS: PCP Internal Medicine; Visit Provider Internal Medicine
DX: Z12.31 Encounter for screening mammogram for malignant neoplasm of breast (principal)
CPT/HCPCS: 77063; 77067

== ENCOUNTER 2022-09-05 12:21 | Emergency (ER) | payer OTHER, SELFPAY ==
--- NOTE | 2022-09-05 12:24 | ED.URI ---
HPI - URI/Sore Throat General Chief Complaint: Upper Respiratory Infection Stated Complaint: SINUS PRESSURE/DIZZY Time Seen by Provider: 09/05/22 12:24 Source: patient and RN notes reviewed History of Present Illness HPI Narrative: Patient is a 72-year-old female who presents to urgent care with complaints of sinus pressure and dizziness. Patient states that she has constant postnasal drainage in which she used to use Flonase however it ?made her feel weird?. Patient states that she has been using Zyrtec for some symptom relief. Denies any fevers, nausea, vomiting, cough. No other acute complaints. No acute distress noted. Patient aware of the plan of care. Some parts of this dictation were generated by voice recognition software and may contain typographical and/or grammatical inaccuracies. Related Data Home Medications Medication Instructions Recorded Confirmed hydrochlorothiazide 12.5 mg tablet 12.5 mg PO DAILY 09/05/22 09/05/22 losartan 100 mg tablet 100 mg PO DAILY 09/05/22 09/05/22 Allergies Allergy/AdvReac Type Severity Reaction Status Date / Time amoxicillin Allergy Unknown Abdominal Verified 09/05/22 12:40 pain erythromycin base Allergy Unknown Gastrointestinal Verified 09/05/22 12:40 Upset morphine Allergy Unknown Gastrointestinal Verified 09/05/22 12:40 Upset Review of Systems Review of Systems: CONSTITUTIONAL: Denies fever, chills, or sweats. EYES: Denies visual changes, redness, or discharge. ENT: Reports of postnasal drainage, congestion, sinus pressure CARDIOVASCULAR: Denies chest pain, palpitations, or edema. RESPIRATORY: Denies cough or dyspnea. GASTROINTESTINAL: Denies abdominal pain, nausea, vomiting, or diarrhea. GENITOURINARY: Denies dysuria or hematuria. SKIN: Denies rash or itching. MUSCULOSKELETAL: Denies back pain, joint pain, or myalgia. NEUROLOGIC: Denies headache, numbness, or weakness. Reports of intermittent dizziness All other systems reviewed are negative, except as documented in HPI. [facility] Past Medical History Medical History Accelerated essential hypertension Surgical History Surgical History History of ankle surgery Family History Family History Mother Hypertension Social History Social History Smoking packs per day: 0.1 Smoking cigarettes per day: 2.0 Years smoked: 10 Smoking pack-years: 1.00 Smoking status: Light tobacco smoker Tobacco type: cigarettes Second hand tobacco smoke exposure: No Alcohol intake: current Drinks per week: 10 Substance use: never Substance use type: does not use Comments At the time of my signature, I reviewed and agree with the nursing past medical, surgical, social, and family history. There is no relevant family history pertinent to the patient complaint. Exam Narrative: GENERAL: This is a well-nourished, well-developed patient, in no apparent distress. HEAD: normocephalic, atraumatic. EYES: PERRL. Sclera clear/white. Vision is grossly intact. EARS: External ears normal, auditory canals clear and without drainage, mild bilateral eustachian tube dysfunction. TMs normal without perforation. Hearing grossly intact. NOSE: External nose normal with no obvious nasal discharge, nares without redness, no rhinorrhea. THROAT: Mucous membranes moist, posterior pharynx clear. Moderate postnasal drainage NECK: Neck supple, non-tender without lymphadenopathy CARDIOVASCULAR: Regular rate and rhythm without murmurs, gallops, or rubs. RESPIRATORY: Clear to auscultation. Breath sounds equal bilaterally. No wheezes, rales, or rhonchi. SKIN: warm, intact with no suspicious lesions or rash, good texture and turgor. NEURO: awake, alert, and oriented to person, place and time. There were no obvious
[2022-09-05 12:36] VITALS: BP 124/81; PULSE 88; RESP 16; TEMP 36.2; O2SAT 98
== END 2022-09-05 12:49 | disposition home or self-care (01) ==
PROVIDERS: Emergency Provider Nurse Practitioner Family; PCP Internal Medicine
DX: J32.9 Chronic sinusitis, unspecified (principal); I10 Essential (primary) hypertension
CPT/HCPCS: 99213; G0463

== ENCOUNTER 2022-12-13 05:57 | Inpatient (IN) | payer OTHER, SELFPAY ==
[2022-12-13] VITALS (33 sets, daily range): BP systolic 126–167; BP diastolic 64–90; PULSE 70–95; RESP 12–22; TEMP 36.2–37; O2SAT 94–99
--- NOTE | ~2022-12-13 | XR_ITS ---
Portable chest x-ray Comparison: 03/12/2021 Clinical History: CVA Findings: There is mild diffuse interstitial prominence. No consolidation or pleural effusion. Card iomediastinal silhouette is stable. Stable chronic rib fracture deformities noted. Impression: Probable COPD versus other chronic interstitial disease. No acute pulmonary abnormality evident. Reviewed, dictated and finalized at [facility]. Impression: Probable COPD versus other chronic interstitial disease. No acute pulmonary abnormality evident.
--- NOTE | ~2022-12-13 | US_ITS ---
EXAMINATION: US carotid duplex BI DATE: 12/13/2022 15:55 INDICATION: Stroke symptoms with right-sided hemiparesis TECHNIQUE: Grayscale, color Doppler, and pulsed Doppler images of the cervical carotid arteries were obtained. The degree of vessel stenosis is placed in one of the following categories: normal, <50%, 5 0-69%, >=70% but less than near-occlusion, near-occlusion, or total occlusion. Note that percent sten osis relative to normal distal artery lumen diameter is indirectly measured from velocity measurement s as described by Luiz, et al. Radiology 2003; [id number]. COMPARISON: None. FINDINGS: RIGHT: The right common carotid artery (CCA) peak systolic velocity (PSV) is 69 cm/s. The right internal car otid artery (ICA) PSV is 65 cm/s. The right ICA end-diastolic velocity (EDV) is 14 cm/s. The right IC A/CCA PSV ratio is 0.9. Grayscale and color Doppler images yield an estimate of <50% diameter reducti on from plaque in the ICA. The external carotid artery (ECA) PSV is 61 cm/s. There is antegrade flow in the right vertebral artery. LEFT: The left CCA PSV is 47 cm/s. The left ICA PSV is 47 cm/s. The left ICA EDV is 15 cm/s. The left ICA/C CA PSV ratio is 1.0. Grayscale and color Doppler images yield an estimate of <50% diameter reduction from plaque in the ICA. The ECA PSV is 34 cm/s. There is antegrade flow in the left vertebral artery. IMPRESSION: 1. <50% stenosis in the right internal carotid artery. 2. <50% stenosis in the left internal carotid artery. Reviewed, dictated and finalized at location A.
--- NOTE | ~2022-12-13 | MR_ITS ---
MRI of the brain Clinical History: Right-sided weakness Technique: Axial and sagittal T1-weighted images were acquired. These were followed by axial T2-weigh annmarie, diffusion weighted, gradient, and FLAIR images. Findings: There is a 1.3 x 0.4 cm area of restricted diffusion in the right periventricular white mat ter, compatible with focal acute infarct. Suspected additional 4 mm focus of restricted diffusion in the left frontal periventricular white matter, consistent with additional focal acute infarct. No int racranial hemorrhage identified. Chronic left frontal lobe peripheral infarct noted. There are mild c hronic white matter changes in the periventricular white matter bilaterally otherwise. Ventricles and subarachnoid spaces are unremarkable. Orbits are unremarkable. Paranasal sinuses and m astoid air cells are clear. Major intracranial flow voids appear intact. Sagittal midline structures are intact. IMPRESSION: 1.3 x 0.4 cm area of acute infarct in the right periventricular white matter. Probable additional 4 mm focal acute infarct in the left frontal periventricular white matter. Additional chronic peripheral left frontal lobe infarct noted. Mild chronic microvascular ischemic changes. Reviewed, dictated and finalized at location M. IMPRESSION: 1.3 x 0.4 cm area of acute infarct in the right periventricular white matter. Probable additional 4 mm focal acute infarct in the left frontal periventricula r white matter. Additional chronic peripheral left frontal lobe infarct noted. Mild chronic microvascular ischemic changes.
--- NOTE | ~2022-12-13 | CT_ITS ---
Non-contrast Head CT History: Left leg weakness COMPARISON: 08/22/2020 Technique: Axial non-contrast imaging of the brain was performed. Dose reduction technique was used on this scan by utilizing automated exposure control and iterative reconstruction technique. The dose -length product (DLP) was 605.33 mGy-cm. Findings: There is no evidence of intracranial hemorrhage, mass lesion, or acute infarct. Probable c hronic infarct in the left frontal lobe. The ventricles and subarachnoid spaces are normal in size. The calvarium appears normal. The visualized paranasal sinuses and mastoid air cells are clear. Impression: No acute abnormality seen. Probable chronic left frontal lobe infarct. Reviewed, dictated and finalized at location . Impression: No acute abnormality seen. Probable chronic left frontal lobe infarct.
--- NOTE | 2022-12-13 06:13 | ECG_ITS ---
Measurements Intervals [place] Rate: 72 P: 22 LA: 141 QRS: 23 QRSD: 78 T: 37 QT: 394 QTc: 432 Interpretive Statements SINUS RHYTHM NORMAL ECG COMPARED TO ECG 10/12/2020 16:40:41 SINUS RHYTHM NOW PRESENT Electronically Signed On 12-13-2022 6:44:15 CDT by Addy Samson D.O.
[2022-12-13 06:41] LABS: Basophils Absolute Auto 0.1 K/mm3 (0.0-0.1); Basophils Percent Auto 0.8 % (0.2-1.2); Eosinophils Absolute Auto 0.2 K/mm3 (0-0.3); Eosinophils Percent Auto 2.4 % (0-4.4); Hematocrit 40.6 % (37.0-47.0); Hemoglobin 13.3 g/dL (12.0-15.0); Immature Granulocyte Absolute 0.02 K/mm3 (0.00-0.031); Immature Granulocyte Percent A 0.3 % (0-0.5); Lymphocytes Absolute Auto 2.01 K/mm3 (0.9-3.2); Lymphocytes Percent Auto 25.2 % (18.3-44.2); Mean Corpuscular HGB Conc 32.8 g/dl (32-36); Mean Corpuscular Hemoglobin 32.9 pg (26-34); Mean Corpuscular Volume 100.5 fl (80-100); Monocytes Absolute Auto 0.6 K/mm3 (0.1-0.6); Monocytes Percent Auto 7.4 % (2.6-8.5); Neutrophils Absolute Auto 5.1 K/mm3 (1.3-6.7); Neutrophils Percent Auto 63.9 % (45.5-73.1); Platelet Count Result 232 k/mm3 (150-375); Red Blood Count 4.04 M/mm3 (4.2-5.4); Red Cell Distribution Width 13.3 % (11.5-14.5)
[2022-12-13 06:44] LABS: Glucose Point of Care 106 mg/dl (65-105)
[2022-12-13 06:53] LABS: Alanine Aminotransferase 19 U/L (6-35); Albumin Level 4.9 g/dL (3.5-5.1); Alkaline Phosphatase 144 U/L (38-126); Anion Gap 11 mmol/L (8-16); Aspartate Amino Transferase 31 U/L (14-36); Blood Urea Nitrogen 14 mg/dL (7-17); Calcium 9.7 mg/dL (8.4-10.2); Carbon Dioxide 26 mmol/L (22-30); Chloride 103 mmol/L (98-107); Estimated CRCL calculation 53 ml/min; Estimated Glomerular Filt Rate > 60; Ethanol < 10 mg/dL (<10); Glucose 114 mg/dL (65-110); Potassium 4.4 mmol/L (3.4-5.0); Prothrombin Time 12.9 Seconds (11.1-14.7); Sodium 140 mmol/L (137-145)
[2022-12-13 07:54] LABS: Appearance Urine Cloudy (Clear); Bacteria Urine 4+ /hpf; Bilirubin Urine Negative (Negative); Blood Urine Negative (Negative); Color Urine Yellow (Yellow); Glucose Urine UA Negative (Negative); Ketones Urine Negative (Negative); Leukocyte Esterase Ur 1+ LEU/UL (Negative); Nitrate Urine Positive (Negative); Non Pathogenic Casts 0-2; Protein Urine Negative (Negative); RBC Urine 0-2 /hpf (0-2); Squamous Epithelial Cell Urine Moderate /hpf (Few); Urobilinogen Urine 0.2 mg/dL (<2.0); pH Urine 6.5 (5.0-9.0)
[2022-12-13 08:01] LABS: Add Urine Microscopic? YES
--- NOTE | 2022-12-13 08:07 | ED.WEAKNESS ---
HPI - Weakness General Chief complaint: Weakness Stated complaint: i just dont feel right Time Seen by Provider: 12/13/22 06:12 History of Present Illness HPI Narrative: This is a 72-year-old female with past medical history of hyperlipidemia, who presents to the emergency department complaining of right leg weakness beginning approximately 2 hours prior to arrival. The patient states she went to bed at 10 PM last night and appeared normal. When she woke up at approximately 04:00, she noted right leg weakness. She denies recent trauma, headache, loss of bowel or bladder control, groin numbness or weakness elsewhere. Related Data Allergies Allergy/AdvReac Type Severity Reaction Status Date / Time amoxicillin Allergy Unknown Abdominal Verified 09/05/22 12:40 pain erythromycin base Allergy Unknown Gastrointestinal Verified 09/05/22 12:40 Upset morphine Allergy Unknown Gastrointestinal Verified 09/05/22 12:40 Upset Review of Systems Review of Systems: CONSTITUTIONAL: Denies fever, chills, or sweats. EYES: Denies visual changes, redness, or discharge. ENT: Denies rhinorrhea, congestion, sore throat, or otalgia. CARDIOVASCULAR: Denies chest pain, palpitations, or edema. RESPIRATORY: Denies cough or dyspnea. GASTROINTESTINAL: Denies abdominal pain, nausea, vomiting, or diarrhea. GENITOURINARY: Denies dysuria or hematuria. SKIN: Denies rash or itching. MUSCULOSKELETAL: Denies back pain, joint pain, or myalgia. NEUROLOGIC: Right leg weakness denies headache, numbness, dizziness PSYCHIATRIC: Denies anxiety or depression. [facility] Past Medical History Medical History Accelerated essential hypertension Surgical History Surgical History History of ankle surgery Family History Family History Mother Hypertension Social History Social History Smoking packs per day: 0.1 Smoking cigarettes per day: 2.0 Years smoked: 10 Smoking pack-years: 1.00 Smoking status: Light tobacco smoker Tobacco type: cigarettes Second hand tobacco smoke exposure: No Alcohol intake: current Drinks per week: 10 Substance use: never Substance use type: does not use Exam Narrative: GENERAL: Well-developed, well-nourished, and in no acute distress. HEAD: Normocephalic, atraumatic. EYES: PERRLA and EOMI. No noted field deficits ENT: Nares clear, no rhinorrhea or epistaxis. Mucous membranes moist. Oropharynx without tonsillar hypertrophy exudate or other lesions. CHEST: Clear to auscultation. No respiratory distress. No wheezes rales or rhonchi HEART: Regular rate and rhythm. No murmur heard. Normal peripheral pulses. ABDOMEN: Soft, nontender, nondistended, normal active bowel sounds. EXTREMITIES: Normal range of motion. No edema. SKIN: Warm, dry, no rash. NEURO: No focal deficits. Alert and oriented x3. Cranial nerves II through XII intact. Strength 5/5 in all extremities, sensation intact bilaterally, no noted ataxia PSYCH: Normal mood and affect. Course Course Emergency Course: 06:12 - NIH stroke scale 0. Will obtain CT head, labs and discussed patient with neurology. 06:22 - CT head on my review negative for intracranial hemorrhage. 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 07:35 - Chemistries unremarkable. UA and UDS pending. CBC unremarkable. Discussed patient with neurologist, Dr. Bro who recommends admission with MRI. He agrees, there is no indication for anticoagulants as patient. Discussed findings and recommendations with the patient, who voices understanding and is comfortable with the plan. All questions answered to her satisfaction. 07:47 - Discussed patient with hospitalist, Dr. Fuller who accepts admission. Vital Signs Vital signs
[2022-12-13 08:09] LABS: Amphetamine Screen Urine Negative (Negative); Barbiturate Screen Urine Negative (Negative); Benzodiazepines Screen Urine Negative (Negative); Cannabinoid Screen Urine Negative (Negative); Cocaine Screen Urine Negative (Negative); Methadone Screen Urine Negative (Negative); Opiate Screen Urine Negative (Negative); Phencyclidine Screen Urine Negative (Negative)
--- NOTE | 2022-12-13 11:49 | WPDNEURCNPN ---
Consult date: 12/13/22 HPI: Lorna Gracia is a 72 year old female has come to the emergency room for the complaints of generalized weakness and not feeling right in addition ongoing history of hyperlipidemia, right lower extremity weakness of 2 hours duration, no history of headache or incontinence of bowel or bladder, history of hypertension, history of ankle surgery, history of 10 years smoked 1 pack years and current alcohol drinking 10 drinks per week exam in the Emergency Room grossly nonfocal vital signs stable except blood pressure 165/74 CBC normal BMP normal routine lab negative except UA with 11 to 20 WBCs rest pending EKG without any atrial fibrillation CT of the head raising the possibility of chronic left frontal lobe infarct PMFSH Past Medical History Medical History Accelerated essential hypertension Surgical History Surgical History History of ankle surgery Family History Family History Mother Hypertension Social History Social History Smoking packs per day: 0.1 Smoking cigarettes per day: 2.0 Years smoked: 10 Smoking pack-years: 1.00 Smoking status: Light tobacco smoker Tobacco type: cigarettes Second hand tobacco smoke exposure: No Alcohol intake: current Drinks per week: 10 Substance use: never Substance use type: does not use Meds Home Medications and Allergies Home Medications Medication Instructions Recorded Confirmed Type tretinoin 0.025 % topical cream 1 applic topical ONCE #45 grams 04/26/21 11/30/22 Rx losartan 50 mg tablet 50 mg PO DAILY #90 tabs 11/30/22 Rx Allergies Allergy/AdvReac Type Severity Reaction Status Date / Time amoxicillin Allergy Unknown Abdominal Verified 09/05/22 12:40 pain erythromycin base Allergy Unknown Gastrointestinal Verified 09/05/22 12:40 Upset morphine Allergy Unknown Gastrointestinal Verified 09/05/22 12:40 Upset Vital Signs Vital Signs - 24 hr 12/13/22 06:00 12/13/22 06:31 12/13/22 06:33 Temperature 37.0 C Pulse Rate 87 71 Respiratory Rate 20 17 Blood Pressure 165/74 H 150/72 H Pulse Oximetry 97 99 97 Oxygen Delivery Room Air 12/13/22 06:45 12/13/22 06:46 12/13/22 07:29 Temperature Pulse Rate 74 76 80 Respiratory Rate 17 13 12 Blood Pressure 126/86 142/72 H Pulse Oximetry 98 97 98 Oxygen Delivery Results Labs 12/13/22 06:26 12/13/22 06:26 Labs: Short CBC 12/13/22 Range/Units 06:26 WBC 8.0 (4.5-10.0) K/mm3 Hgb 13.3 (12.0-15.0) g/dL Hct 40.6 (37.0-47.0) % Plt Count 232 (150-375) k/mm3 BMP 12/13/22 06:26 Sodium 140 Potassium 4.4 Chloride 103 Carbon Dioxide 26 BUN 14 Creatinine 0.70 Glucose 114 H Calcium 9.7 Liver Function 12/13/22 Range/Units 06:26 Total Bilirubin 1.0 (0.2-1.3) mg/dL AST 31 (14-36) U/L ALT 19 (6-35) U/L Alkaline Phosphatase 144 H (38-126) U/L Albumin 4.9 (3.5-5.1) g/dL Urine 12/13/22 Range/Units 07:33 Urine Color Yellow (Yellow) Urine Appearance Cloudy H (Clear) Urine pH 6.5 (5.0-9.0) Ur Specific [place] 1.010 (1.001-1.035) Urine Protein Negative (Negative) mg/dL Urine Glucose (UA) Negative (Negative) mg/dL
--- NOTE | 2022-12-13 12:45 | PM.IMHP ---
H&P: HPI History of Present Illness Date/Time: 12/13/22 12:45 Chief Complaint: ?Left leg does not feel right.? Narrative: This is a very pleasant 72-year-old female with hypertension, aortic stenosis, and breast cancer who presented to the emergency department via private vehicle from home for evaluation of ?left leg does not feel right.? Patient provides the following history. She was in her usual state of health when she went to bed last night at 22:00. Throughout the night she had muscle spasms in the left calf which is not necessarily unusual for her. At 04:00 she got up to use the restroom and she felt as though her left leg was ?floppy and rubbery? and her gait seemed to be off a bit however she and her admit that her gait has been off since she had a right ankle repair years ago. Triage note indicates that she had weakness in her right arm however she denies that to me. She also denies vertigo, headache, visual changes, facial droop, difficulties speaking and swallowing, focal weakness, and paresthesias. No sensations of racing heart or palpitations. She has no known history of cardiac dysrhythmia. Blood pressure was 165/74 on arrival to the ED. She has been in a normal sinus rhythm since arrival. 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 Chest x-ray showed probable COPD versus other chronic interstitial lung disease of which the patient has no symptoms or history of. Brain MRI showed areas of infarct in the right periventricular white matter and left frontal periventricular white matter in addition to chronic frontal lobe infarct and mild chronic microvascular ischemic changes. She is being admitted in this setting for further workup, close observation, and neurology consultation. Review of Systems Review of Systems: Twelve systems were reviewed. No fever, chills, or sweats. No recent cold or flu symptoms. No chest pain shortness a breath. No nausea, vomiting, diarrhea, or dysuria. Except as documented, all other systems were reviewed and are negative. [facility] Past Medical History Medical History (Updated 12/13/22 @ 20:04 by Iliana Lopez PA-C) Benign essential hypertension Cancer of left breast Invasive ductal carcinoma, ER/ID positive. Diastolic dysfunction Echocardiogram in July 2018 showed normal LV function, EF 60 to 65%, grade 1 diastolic dysfunction. Mild aortic stenosis Valve area of 2 cm2 on echo in July 2018. Normal nuclear stress test (04/2021) Surgical History Surgical History (Updated 12/13/22 @ 13:08 by Iliana Lopez PA-C) History of ankle surgery History of arthroscopy of right shoulder History of basal cell carcinoma excision (12/2007) Left nasal ala. History of section History of colonoscopy (08/2007) Normal colonoscopy. Internal hemorrhoidal tissue. History of hammertoe correction (08/2002) History of partial mastectomy of left breast (02/2011) History of repair of hiatal hernia Family History Family History Mother Hypertension Social History Social History (Updated 12/13/22 @ 13:09 by Iliana Lopez PA-C) Social History: Surrogate medical decision maker: Liborio Gracia, spouse. Code status: Full code. Smoking packs per day: 0.1 Smoking cigarettes per day: 2.0 Years smoked: 10 Smoking pack-years: 1.00 Smoking status: Current every day smoker Tobacco type: cigarettes Second hand tobacco smoke exposure: No Alcohol intake: current Drinks per week: 8 Substance use: never Substance use type: does not use Lack of Transportation: No Lack of Food: Never True Current Housing: I Have Housing Concerned About Future Housing: No Difficulty Paying Gas/Electric Bills: No Difficulty Paying for Meds: No Currently Unemployed: No Education: Master's Degree or Higher Difficulty w/ Child
--- NOTE | 2022-12-13 13:10 | ECHO_ITS ---
Patient Info Name: Lorna Gracia Age: 72 years : 1950 Gender: Female Ht: 64 in Wt: 119 lbs BSA: 1.56 m2 HR: 72 bpm BP: 167 / 70 mmHg Heart Rhythm: Sinus Rhythm Technical Quality: Fair Exam Date: 12/13/2022 4:09 PM Exam Location: [facility] Patient Status: Outpatient Admit Date: 12/13/2022 Staff Ordering Physician: Iliana Lopez PA-C [employer] Sales Representative: Cesilia Oleary RDCS Attending Provider: Guillermina Fuller DO Referring Physician: Jessica GRAJEDA; Exam Type: CA echo doppler w bubble study Study Info Indications - stroke symptoms, htn Complete two-dimensional, color flow and Doppler transthoracic echocardiogram is performed with agitated saline. Contrast/Agitated Saline Contrast/Ag. Saline: Agitated Saline Amount: 20.00 ml Administered By: Ness Salinas RN Existing IV Access: Yes IV Access Condition: patent with no signs of infiltration Summary 1. Left ventricular chamber dimension is normal. 2. Left ventricular systolic function is normal, estimated at 65-70%. 3. The left ventricular diastolic function is grade I diastolic dysfunction. 4. E/e' 14 is mildly elevated. 5. There is severe aortic valve sclerosis. 6. There is moderate to severe aortic valve stenosis with a peak velocity of 274 cm/s, mean gradient of 15 mmHg, and aortic valve area of 1.0 cm2. 7. There is trace aortic valve regurgitation. 8. The mitral valve has mildly calcified annulus. 9. There is trace mitral valve regurgitation. 10. There is trace tricuspid valve regurgitation. 11. No pulmonary hypertension, estimated pulmonary arterial systolic pressure is 15 mmHg. Left Ventricle E/e' 14 is mildly elevated. Left ventricular chamber dimension is normal. Left ventricular systolic function is normal, estimated at 65-70%. The left ventricular diastolic function is grade I diastolic dysfunction. Right Ventricle Right ventricular systolic function is normal and with normal TAPSE 2.2 cm. Right ventricular chamber dimension is normal. Left Atria Left atrial chamber dimension is normal. Right Atria Right atrial chamber dimension is normal. Atrial Septum Agitated saline injection with and without valsalva maneuver opacified right side cardiac chambers without shunt to left side cardiac chambers. Intact interatrial septum visualized by 2D and agitated saline imaging. Aortic Valve The aortic valve is probable trileaflet. There is severe aortic valve sclerosis. There is moderate to severe aortic valve stenosis with a peak velocity of 274 cm/s, mean gradient of 15 mmHg, and aortic valve area of 1.0 cm2. There is trace aortic valve regurgitation. Pulmonic Valve There is no pulmonic regurgitation. Mitral Valve The mitral valve has mildly calcified annulus. There is no mitral valve stenosis. There is trace mitral valve regurgitation. Tricuspid Valve There is trace tricuspid valve regurgitation. No pulmonary hypertension, estimated pulmonary arterial systolic pressure is 15 mmHg. Pericardium/Pleural There is no pericardial effusion. Inferior Vena Cava Normal inferior vena cava with >50% collapse upon inspiration consistent with normal right atrial pressure, 5 mmHg. Aorta The aortic root size at the sinus of Valsalva is normal. Left Ventricular Outflow Tract Name Value Normal --
--- NOTE | 2022-12-13 13:22 | PC.NURSE ---
Spoke with Iliana admitting, and she stated at this time pt can have food. She stated she would be down to assess pt in a little bit
[2022-12-13] MEDS: ASPIRIN 81 MG CHEWABLE TABLET 324 MG PO (13:44)
[2022-12-13 14:43] LABS: Cholesterol 173 mg/dL (0-200); HDL Direct 81 mg/dL; Triglycerides 101 mg/dL (<150)
[2022-12-13 14:54] LABS: LDL Cholesterol Direct 70 mg/dL
[2022-12-13 15:53] LABS: Folic Acid > 20.0 ng/mL (2.76->20)
--- NOTE | 2022-12-13 17:22 | ADMGEN ---
This patient, Lorna Gracia, was admitted to [facility] Surg Room 332-02. Patient/family oriented to hospital policies and general routines including ID bracelet, bed and alarms, visiting hours, pain management, procedures, bathroom and other care routines, personal items, smoking policy, room service/diet, and visiting hours. Information on how to activate the Rapid Response Team has been discussed. Patient/Family are encouraged to report perceived risks to care and to ask questions if they do not understand what they are told or what they should do.
[2022-12-13] MEDS: LOSARTAN POTASSIUM 50 MG TABLET PO (22:09)
[2022-12-14] VITALS: PULSE 78
[2022-12-14 04:00] VITALS: PULSE 70
[2022-12-14] MEDS: ACETAMINOPHEN 500 MG TABLET 1000 MG PO (05:04)
[2022-12-14 05:56] VITALS: BP 128/65; PULSE 69; RESP 14; TEMP 36.2; O2SAT 95
[2022-12-14 06:34] LABS: Basophils Absolute Auto 0.1 K/mm3 (0.0-0.1); Eosinophils Absolute Auto 0.2 K/mm3 (0-0.3); Eosinophils Percent Auto 2.9 % (0-4.4); Hematocrit 37.4 % (37.0-47.0); Hemoglobin 12.2 g/dL (12.0-15.0); Immature Granulocyte Absolute 0.01 K/mm3 (0.00-0.031); Immature Granulocyte Percent A 0.2 % (0-0.5); Lymphocytes Absolute Auto 1.67 K/mm3 (0.9-3.2); Lymphocytes Percent Auto 28.9 % (18.3-44.2); Mean Corpuscular HGB Conc 32.6 g/dl (32-36); Mean Corpuscular Hemoglobin 33.2 pg (26-34); Mean Corpuscular Volume 101.6 fl (80-100); Mean Platelet Volume 10.2 fl (7.4-10.4); Monocytes Absolute Auto 0.6 K/mm3 (0.1-0.6); Monocytes Percent Auto 9.7 % (2.6-8.5); Neutrophils Absolute Auto 3.3 K/mm3 (1.3-6.7); Neutrophils Percent Auto 57.3 % (45.5-73.1); Platelet Count Result 213 k/mm3 (150-375); Red Blood Count 3.68 M/mm3 (4.2-5.4); Red Cell Distribution Width 13.4 % (11.5-14.5); White Blood Count 5.8 K/mm3 (4.5-10.0)
[2022-12-14 06:46] LABS: Anion Gap 5 mmol/L (8-16); Blood Urea Nitrogen 13 mg/dL (7-17); Calcium 9.4 mg/dL (8.4-10.2); Carbon Dioxide 28 mmol/L (22-30); Chloride 105 mmol/L (98-107); Estimated CRCL calculation 61 ml/min; Estimated Glomerular Filt Rate > 60; Glucose 98 mg/dL (65-110); Magnesium 1.7 mg/dL (1.6-2.3); Sodium 138 mmol/L (137-145)
[2022-12-14] MEDS: ASPIRIN 81 MG ENTERIC TABLET PO (09:14)
--- NOTE | 2022-12-14 11:21 | PM.IMPN ---
Progress Note: A&P Assessment and Plan (1) Cerebrovascular accident: Code(s): I63.9 - Cerebral infarction, unspecified Status: Acute Assessment and Plan: Continue aspirin. PTOT. Await recs for discharge (2) Aortic stenosis: Code(s): I35.0 - Nonrheumatic aortic (valve) stenosis Status: Acute (3) Benign essential hypertension: Code(s): I10 - Essential (primary) hypertension Status: Acute (4) Diastolic dysfunction: Code(s): I51.89 - Other ill-defined heart diseases Status: Acute (5) Abnormal chest x-ray: Code(s): R93.89 - Abnormal findings on diagnostic imaging of other specified body structures Status: Acute (6) Abnormal urinalysis: Code(s): R82.90 - Unspecified abnormal findings in urine Status: Acute Subjective Date/time seen: 12/14/22 11:21 No new complaints Exam Narrative: General: Well-developed female sitting up in bed in no distress. Weight: 53.98 kg. BMI: 20.4. HEENT: PERRL, EOMI. Sclera anicteric. Oral mucosa moist. Oropharynx clear. Neck: Supple. Faint carotid bruits versus more likely transmission of cardiac murmur. No JVD. Respiratory: Lungs are clear to auscultation bilaterally. Cardiovascular: Regular rate and rhythm with S1-S2. 3/6 systolic murmur at the upper sternal border radiating to carotids. Gastrointestinal: Abdomen is soft, nontender, and nondistended with positive bowel sounds. Skin: Warm and dry. No rash or lesions on limited exam. Extremities: No cyanosis, clubbing, or edema. Radial and pedal pulses intact. Neurological: Alert and oriented x4. Cranial nerves 2-12 are grossly intact. Speech is clear. No facial asymmetry. No pronator drift. Hand datastage consultant and foot pushes equal bilaterally. Normal [id number], rapid alternating movements, and heel to garcia. Gait is a bit wide. She seems a bit unsure on her feet. She does not seem to have focal weakness on the left when compared to the right. Psychiatric: Pleasant and cooperative with normal mood and affect. Judgment and insight intact. Objective Data Vital Signs Vital Signs: Vital Signs - 24 hr 12/13/22 11:30 12/13/22 11:45 12/13/22 12:00 Temperature Pulse Rate 81 78 77 Respiratory Rate 20 20 20 Blood Pressure Pulse Oximetry 95 96 95 Oxygen Delivery 12/13/22 12:00 12/13/22 13:45 12/13/22 15:59 Temperature Pulse Rate 87 80 84 Respiratory Rate 12 12 14 Blood Pressure 140/72 151/64 H 162/90 H Pulse Oximetry 99 98 Oxygen Delivery 12/13/22 16:00 12/13/22 21:37 12/13/22 20:00 Temperature 97.2 F L 97.3 F L Pulse Rate 72 86 86 Respiratory Rate 18 18 18 Blood Pressure 167/70 H 127/77 Pulse Oximetry 97 95 95 Oxygen Delivery Room Air 12/13/22 20:00 12/14/22 00:00 12/14/22 04:00 Temperature Pulse Rate 95 78 70 Respiratory Rate Blood Pressure Pulse Oximetry Oxygen Delivery 12/14/22 05:56 12/14/22 09:37 Temperature 97.2 F L Pulse Rate 69 Respiratory Rate 14 Blood Pressure 128/65 Pulse Oximetry 95 Oxygen Delivery Room Air Intake/Output Intake/Output: Intake & Output 12/11/22 12/12/22 12/13/22 12/14/22 23:59 23:59 23:59 23:59 Intake Total 240 780 Output Total 400 Balance 240 380 Meds/Results Medications: Active Medications Generic Name Dose Route Start Last Admin Trade Name Freq PRN Reason Stop Dose Admin Acetaminophen 650 mg 12/13/22 13:11 Acetaminophen 325 Mg Tablet PO Q6H PRN Mild Pain (1-3) or Fever Acetaminophen 1,000 mg 12/14/22 04:54 12/14/22 05:04 Acetaminophen 500 Mg Tablet PO 1,000 mg Q6H PRN Administration Pain Rated 4-6 Aspirin 81 mg 12/14/22 09:00 12/14/22 09:14 Aspirin 81 Mg Enteric Tablet PO 81 mg QAM CHARISSA Administration Ceftriaxone Sodium 1 gm in 50 mls @ 100 mls/hr 12/15/22 06:00 Rocephin 1 Gm/Ns 50 Ml IVPB Q24H CHARISSA Losartan Potassium 50 mg 12/13/22 21:55 12/13/22 22:09 Losartan
--- NOTE | 2022-12-14 12:45 | WPDNEURCNPN ---
Assessment and Plan Assessment and plan (1) TIA (transient ischemic attack): Code(s): G45.9 - Transient cerebral ischemic attack, unspecified Status: Acute Plan 1 subcortical small-vessel related strokes 2 abnormal echocardiogram will need to be treated for the prevention of stroke. Will need aspirin and Plavix Consult date: 12/14/22 HPI: Lorna Gracia is a 72 year old female admitted to the hospital through the emergency room for the complaints of generalized weakness and not feeling well in addition to the history of 1. Hyperlipidemia 2. Right lower extremity weakness of 2 hours duration 3. No history of hypertension or diabetes mellitus but history of drinking 10 drinks per week on initial evaluation in the emergency room she was found to have blood pressure 165/74 with normal routine blood studies, history of years smoked 10 is smoking pack years 1 and currently alcohol intake or 10 drinks per week, had been taking losartan 50 mg daily, initial vital signs normal except blood pressure 165/74 and routine lab negative since admission carotid study normal with less than 50% stenosis bilaterally brain MRI with 1.3x0.4cm area of acute infarct in the right periventricular white matter and additional 4mm focal acute infarct in left frontal periventricular white matter and additional chronic peripheral left frontal lobe infarct CT of the head was negative for the bleed, echocardiogram documents severe aortic valve sclerosis moderate to severe aortic valve stenosis trace aortic valve regurgitation mitral valve mildly calcified with regurgitation of mild degree also trace tricuspid valve regurgitation but no pulmonary hypertension patient is taking losartan 50 mg daily Review of Systems Review of Systems: All systems reviewed & are unremarkable except as noted in HPI and below PMFSH Past Medical History Medical History (Updated 12/14/22 @ 12:55 by Larry Bro MD) Benign essential hypertension Cancer of left breast Invasive ductal carcinoma, 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 Diastolic dysfunction Echocardiogram in July 2018 showed normal LV function, EF 60 to 65%, grade 1 diastolic dysfunction. Mild aortic stenosis Valve area of 2 cm2 on echo in July 2018. Normal nuclear stress test (04/2021) Surgical History Surgical History (Updated 12/13/22 @ 13:08 by Iliana Lopez PA-C) History of ankle surgery History of arthroscopy of right shoulder History of basal cell carcinoma excision (12/2007) Left nasal ala. History of section History of colonoscopy (08/2007) Normal colonoscopy. Internal hemorrhoidal tissue. History of hammertoe correction (08/2002) History of partial mastectomy of left breast (02/2011) History of repair of hiatal hernia Family History Family History Mother Hypertension Social History Social History (Updated 12/13/22 @ 13:09 by Iliana Lopez PA-C) Social History: Surrogate medical decision maker: Liborio Gracia, spouse. Code status: Full code. Smoking packs per day: 0.1 Smoking cigarettes per day: 2.0 Years smoked: 10 Smoking pack-years: 1.00 Smoking status: Current every day smoker Tobacco type: cigarettes Second hand tobacco smoke exposure: No Alcohol intake: current Drinks per week: 8 Substance use: never Substance use type: does not use Lack of Transportation: No Lack of Food: Never True Current Housing: I Have Housing Concerned About Future Housing: No Difficulty Paying Gas/Electric Bills: No Difficulty Paying for Meds: No Currently Unemployed: No Education: Master's Degree or Higher Difficulty w/ Childcare or Family Care: No Additional living arrangements comments: Lives with spouse in [place]. Spiritual care concerns: No Meds Home Medications and Allergies Home Medications Medication Instructions Recorded Confirmed Type tretinoin 0.025 % topical cream 1
[2022-12-14 14:00] VITALS: BP 125/68; PULSE 74; RESP 16; TEMP 36.7; O2SAT 96
[2022-12-14 20:00] VITALS: PULSE 74; RESP 16; O2SAT 96
[2022-12-14] MEDS: LOSARTAN POTASSIUM 50 MG TABLET PO (21:37)
[2022-12-14 22:00] VITALS: BP 127/71; PULSE 69; RESP 18; TEMP 35.6; O2SAT 97
[2022-12-15] VITALS: PULSE 67
[2022-12-15 04:00] VITALS: PULSE 63
[2022-12-15 05:29] VITALS: BP 111/58; PULSE 70; RESP 14; TEMP 35.9; O2SAT 96
[2022-12-15 08:00] VITALS: PULSE 74
[2022-12-15] MEDS: ASPIRIN 81 MG ENTERIC TABLET PO (08:05)
--- NOTE | 2022-12-15 12:53 | PM.DS ---
DS: Admitting Diagnosis Discharge Date December 15, 2022 Admitting Diagnosis CVA DS: Discharge Diagnosis Discharge Diagnosis (1) Cerebrovascular accident: Code(s): I63.9 - Cerebral infarction, unspecified Status: Acute Assessment and Plan: Continue aspirin. PTOT. Await recs for discharge (2) Aortic stenosis: Code(s): I35.0 - Nonrheumatic aortic (valve) stenosis Status: Acute (3) Benign essential hypertension: Code(s): I10 - Essential (primary) hypertension Status: Acute (4) Diastolic dysfunction: Code(s): I51.89 - Other ill-defined heart diseases Status: Acute (5) Abnormal chest x-ray: Code(s): R93.89 - Abnormal findings on diagnostic imaging of other specified body structures Status: Acute (6) Abnormal urinalysis: Code(s): R82.90 - Unspecified abnormal findings in urine Status: Acute DS: Summary Hospital Course Hospital Course: Admitted for CVA. Will discharge her aspirin Plavix and statin. To follow up with Neurology. Time Spent with Patient Time attestation: Total time spent providing and/or coordinating discharge services: Exam Narrative: General: Well-developed female sitting up in bed in no distress. Weight: 53.98 kg. BMI: 20.4. HEENT: PERRL, EOMI. Sclera anicteric. Oral mucosa moist. Oropharynx clear. Neck: Supple. Faint carotid bruits versus more likely transmission of cardiac murmur. No JVD. Respiratory: Lungs are clear to auscultation bilaterally. Cardiovascular: Regular rate and rhythm with S1-S2. 3/6 systolic murmur at the upper sternal border radiating to carotids. Gastrointestinal: Abdomen is soft, nontender, and nondistended with positive bowel sounds. Skin: Warm and dry. No rash or lesions on limited exam. Extremities: No cyanosis, clubbing, or edema. Radial and pedal pulses intact. Neurological: Alert and oriented x4. Cranial nerves 2-12 are grossly intact. Speech is clear. No facial asymmetry. No pronator drift. Hand ultrasound coordinator and foot pushes equal bilaterally. Normal [id number], rapid alternating movements, and heel to garcia. Gait is a bit wide. She seems a bit unsure on her feet. She does not seem to have focal weakness on the left when compared to the right. Psychiatric: Pleasant and cooperative with normal mood and affect. Judgment and insight intact. DS: Data Data Completed and Pending Labs on day of discharge: Preliminary micro results at discharge 12/13/22 07:33 Urine Culture - Preliminary Urine Clean Catch Escherichia Coli Discharge Plan Discharge Attending physician on discharge: Timothy Bullock Consulting providers: Larry Bro Discharging Clinician: Timothy Bullock Patient Disposition: Home, Self-Care Activity: no preference Diet: as tolerated Patient Instructions: Antibiotic Form Stand Alone Forms: General Discharge Information Follow-up/Referrals: Larry Bro MD [Physician] - Kirill Joseph MD [Primary Care Provider] - Discharge Medications: New aspirin 81 mg Tablet,Delayed Release (Dr/Ec) 81 mg PO QAM 3 Days Qty: 30 0RF atorvastatin 20 mg tablet 20 mg PO DAILY Qty: 30 0RF cefdinir 300 mg capsule 300 mg PO Q12H Qty: 6 0RF clopidogrel [Plavix] 75 mg tablet 75 mg PO DAILY Qty: 30 0RF Continued tretinoin 0.025 % cream 1 applic TOPICAL ONCE Qty: 45 3RF Rx Instructions: Apply at HS losartan 50 mg tablet 50 mg PO DAILY Qty: 90 1RF Date of admission: 12/14/22 15:10 Primary Care Provider: Kirill Joseph Admitting Provider: Guillermina Fuller Attending physician on admission: Guillermina Fuller Condition: Stable
== END 2022-12-15 14:00 | disposition home or self-care (01) | DRG 65 ==
LOC: ANHED 08:15 → ANH3MEDSUR 10:17
PROVIDERS: Physician Assistant; Admitting Provider Student in an Organized Health Care Education/Training Program; Emergency Provider Preventive Medicine Aerospace Medicine; PCP Internal Medicine; Visit Provider Chiropractor
DX: I63.9 Cerebral infarction, unspecified (principal); G81.91 Hemiplegia, unspecified affecting right dominant side; N39.0 Urinary tract infection, site not specified; E78.5 Hyperlipidemia, unspecified; F17.210 Nicotine dependence, cigarettes, uncomplicated; I35.0 Nonrheumatic aortic (valve) stenosis; I11.9 Hypertensive heart disease without heart failure; Z86.73 Personal history of transient ischemic attack (TIA), and cerebral infarction without residual deficits; Z85.3 Personal history of malignant neoplasm of breast
CPT/HCPCS: 36415; 70450; 70551; 71045; 80048; 80053; 80061; 80307; 81001; 82607; 82746; 82948; 83735; 84443; 85025; 85610; 87077; 87086; 87186; 93005; 93306; 93880; 96365; 96375; 97161; 97165; 99285; A9270; G0378; J0696

== ENCOUNTER 2023-01-17 14:00 | Outpatient (RCR) | payer OTHER, SELFPAY ==
--- NOTE | 2022-12-27 11:03 | PTOPEVAL1 ---
Assessment and note entered by Jean Romero, PT Evaluation Information Assessment Status Evaluation Diagnosis mild stroke, LLE weakness Subjective Information Patrient reports having a CVA at the beginning of November. The patient has weakness in the L LE. She has progressed from using a walker at all times to just at night when getting up to go to the bathroom. She has also been using a quad cane, but is starting to go around the house without anything. She feels like she is still having trouble with her normal routine and wants to work on her balance, strengthening, coordination, and endurance. Assessment PT Clinical Summary Maricarmen is a 72 year old female coming into the clinic with a diagnosis of mild CVA with LLE weakness. Patient has minimal weakness mainly in the hips actually bilaterally, but needs to work on balance, endurance, and coordination and progress away from assistive device to get back to her prior level of function. Physical therapy will work on reducing deficits to improve functional mobility. Plan of Care Interventions Electrical Stimulation,Gait Training,Hot Pack/Cold Pack,Manual Therapy,Neuro Re-education,Patient/ Caregiver Education,Therapeutic Activities, Therapeutic Exercise,Ultrasound Other Interventions taping, cupping, IASTM PT Services Indicated Yes Treatment Frequency and 1x/wk for 4 weeks Duration These treatments will address the objective and functional deficits as defined above. The patient will be advanced safely and appropriately in order for the patient to progress towards his/her prior level of function. Additional exercises will be introduced and as well as a comprehensive home exercise program upon discharge, if needed, ?to ensure carryover of functional gains achieved in the clinic. This treatment plan has been reviewed and agreement upon by the patient.
--- NOTE | 2023-01-11 12:33 | PCPTNOTE ---
Patient appointment on 01/10 had to be canceled due to therapist being out for sick leave.
--- NOTE | 2023-01-24 14:20 | PCPTNOTE ---
Patient called & cancelled scheduled re-evaluation this date due to being out of today. She states she will call back to rescheduled as this was her last scheduled visit.
--- NOTE | 2023-03-22 08:28 | PTOPDC ---
Assessment and note entered by Segundo Paul, PT, DPT Evaluation Information Assessment Status Discharge - Pt Not Present Diagnosis mild stroke, LLE weakness Subjective Information Called pt to follow up as she cancelled her last appointment and has not returned since. She states she is doing well and does not need to continue therapy. Assessment PT Clinical Summary Lorna completed 4 visits of skilled therapy from 12/26/22 to 01/17/23. She will be discharged at this time, if pt needs additional therapy at a later date she will need a new order.
== END 2023-03-22 09:07 | disposition home or self-care (01) ==
LOC: ANHGOSHPT 14:00
PROVIDERS: PCP Internal Medicine; Visit Provider Internal Medicine
DX: I63.9 Cerebral infarction, unspecified (principal)
CPT/HCPCS: 97110; 97112; 97161; 97530

== ENCOUNTER 2023-04-24 11:40 | Emergency (ER) | payer OTHER, SELFPAY ==
--- NOTE | ~2023-04-24 | XR_ITS ---
EXAMINATION: XR chest 2V DATE: 04/24/2023 12:28 INDICATION: Cough. TECHNIQUE: Frontal and lateral views of the chest were obtained. COMPARISON: Chest single view 12/13/2022, chest CT 10/12/2020 FINDINGS: There is mild scarring at the lung apices. There are chronic airspace and reticular opaciti es in the mid and lower lung zones. There are airspace opacities with volume loss involving right mid dle lobe. No pleural effusion or pneumothorax. The heart size is normal. There is ectasia of ascendin g aorta. There are old healed bilateral rib fractures. IMPRESSION: 1. Multifocal lung disease, worst in right middle lobe, likely acute on chronic pneumonia. Reviewed, dictated and finalized at location A.
[2023-04-24 11:50] VITALS: BP 151/72; PULSE 80; RESP 18; TEMP 37; O2SAT 100
--- NOTE | 2023-04-24 12:02 | ED.URI ---
HPI - URI/Sore Throat General Chief Complaint: Upper Respiratory Infection Stated Complaint: Cough Source: patient and RN notes reviewed History of Present Illness HPI Narrative: 72-year-old female presents to urgent care with complaints of a cough for the last week or so. Patient states she is coughing up green mucus. Patient reports her cough worsens in the afternoon typically. Denies any fevers, chills, sore throat, chest pain, new shortness breath, vomiting or congestion. Patient has been taking cough drops with minimal relief. Related Data Allergies Allergy/AdvReac Type Severity Reaction Status Date / Time amoxicillin Allergy Unknown Abdominal Verified 04/24/23 12:07 pain erythromycin base Allergy Unknown Gastrointestinal Verified 04/24/23 12:07 Upset morphine Allergy Unknown Gastrointestinal Verified 04/24/23 12:07 Upset Review of Systems Review of Systems: Pertinent positives and pertinent negatives per HPI. 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 COVID-19 Diastolic dysfunction Echocardiogram in July 2018 showed normal LV function, EF 60 to 65%, grade 1 diastolic dysfunction. History of breast cancer in female Major depression in remission Mild aortic stenosis Valve area of 2 cm2 on echo in July 2018. Normal nuclear stress test (04/2021) Surgical History Surgical History History of ankle surgery History of arthroscopy of right shoulder History of basal cell carcinoma excision (12/2007) Left nasal ala. History of section History of colonoscopy (08/2007) Normal colonoscopy. Internal hemorrhoidal tissue. History of hammertoe correction (08/2002) History of partial mastectomy of left breast (02/2011) History of repair of hiatal hernia Family History Family History Mother Hypertension Social History Social History Social History: Surrogate medical decision maker: Liborio Gracia, spouse. Code status: Full code. Smoking packs per day: 0.1 Smoking cigarettes per day: 2.0 Years smoked: 10 Smoking pack-years: 1.00 Smoking status: Former smoker Tobacco type: cigarettes Second hand tobacco smoke exposure: No Smoking end date: 11/13/22 Alcohol intake: current Drinks per week: 8 Substance use: never Substance use type: does not use Lack of Transportation: No Lack of Food: Never True Current Housing: I Have Housing Concerned About Future Housing: No Difficulty Paying Gas/Electric Bills: No Difficulty Paying for Meds: No Currently Unemployed: No Education: Master's Degree or Higher Difficulty w/ Childcare or Family Care: No Additional living arrangements comments: Lives with spouse in [place]. Spiritual care concerns: No Comments At the time of my signature, I reviewed and agree with the nursing past medical, surgical, social, and family history. There is no relevant family history pertinent to the patient complaint. Exam Narrative: GENERAL: This is a well-nourished, well-developed patient, in no apparent distress. HEAD: normocephalic, atraumatic. EYES: Sclera clear/white. Vision is grossly intact. EARS: External ears normal, auditory canals clear and without drainage, TMs normal without perforation. Hearing grossly intact. NOSE: External nose normal with no obvious nasal discharge, nares without redness, no rhinorrhea. THROAT: Mucous membranes moist, posterior pharynx clear. NECK: Neck supple, non-tender without lymphadenopathy, masses or thyromegaly. CARDIOVASCULAR: Regular rate and rhythm without murmurs, gallops, or rubs. RESPIRATORY: Clear to auscultation. Breath sounds equal bilaterally. No wheezes, rales, or
== END 2023-04-24 12:44 | disposition home or self-care (01) ==
PROVIDERS: Emergency Provider Nurse Practitioner Family; PCP Family Medicine
DX: J18.9 Pneumonia, unspecified organism (principal); Z87.891 Personal history of nicotine dependence; I10 Essential (primary) hypertension; I35.0 Nonrheumatic aortic (valve) stenosis; Z85.3 Personal history of malignant neoplasm of breast; Z86.16 Personal history of COVID-19; Z85.828 Personal history of other malignant neoplasm of skin; Z90.12 Acquired absence of left breast and nipple
CPT/HCPCS: 71046; 99213; G0463

== ENCOUNTER 2023-09-11 09:45 | Emergency (ER) | payer OTHER, SELFPAY ==
[2023-09-11 09:50] VITALS: BP 152/83; PULSE 83; RESP 16; TEMP 36.5; O2SAT 95
--- NOTE | 2023-09-11 10:00 | ED.URI ---
HPI - URI/Sore Throat General Chief Complaint: Upper Respiratory Infection Stated Complaint: Sinus Infection symptoms Time Seen by Provider: 09/11/23 10:42 Source: patient, RN notes reviewed and old records reviewed Mode of arrival: ambulatory Limitations: no limitations History of Present Illness HPI Narrative: 73-year-old female presents to the [facility] with complaints of sinus pressure and drainage for 4 days. States she has tried ?all sorts of cold medicine. ? Onset (ago): day(s) (4) Related Data Home Medications Medication Instructions Recorded Confirmed aspirin 81 mg tablet,delayed 81 mg PO DAILY 05/22/23 05/22/23 release (Adult Aspirin Regimen) metoprolol succinate 25 mg 12.5 mg PO DAILY 08/30/23 tablet,extended release 24 hr Allergies Allergy/AdvReac Type Severity Reaction Status Date / Time amoxicillin Allergy Unknown Abdominal Verified 08/30/23 13:54 pain erythromycin base Allergy Unknown Gastrointestinal Verified 08/30/23 13:54 Upset morphine Allergy Unknown Gastrointestinal Verified 08/30/23 13:54 Upset Review of Systems Review of Systems: All systems reviewed & are unremarkable except as noted in HPI and below Constitutional: Constitutional: Reports no additional constitutional complaints Eyes: Eyes: Reports no additional eye complaints ENT: Reports as per HPI, Reports nasal congestion and Reports sinus pressure Cardiovascular: Cardiovascular: Reports no additional cardiovascular complaints, Denies chest pain and Denies dyspnea Respiratory: Respiratory: Reports as per HPI, Denies chest congestion, Reports cough and Denies dyspnea Gastrointestinal: Gastrointestinal: Reports no additional gastrointestinal complaints, Denies abdominal pain, Denies nausea and Denies vomiting Musculoskeletal: Musculoskeletal: Reports no additional musculoskeletal complaints Integumentary/Breasts: Skin/Breast: Reports system reviewed and no additional complaints, except as docu Neurologic: Reports system reviewed and no additional complaints, except as documented Psychiatric: Psychiatric: Reports no additional psychiatric complaints Allergic/Immunologic: Allergic/Immunologic: Reports no additional allergic/immunologic complaints PMFSH Past Medical History Medical History Benign essential hypertension Cancer of left breast Invasive ductal carcinoma, 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 COVID-19 Diastolic dysfunction Echocardiogram in July 2018 showed normal LV function, EF 60 to 65%, grade 1 diastolic dysfunction. History of breast cancer in female Major depression in remission Mild aortic stenosis Valve area of 2 cm2 on echo in July 2018. Normal nuclear stress test (04/2021) Surgical History Surgical History History of ankle surgery History of arthroscopy of right shoulder History of basal cell carcinoma excision (12/2007) Left nasal ala. History of section History of colonoscopy (08/2007) Normal colonoscopy. Internal hemorrhoidal tissue. History of hammertoe correction (08/2002) History of partial mastectomy of left breast (02/2011) History of repair of hiatal hernia Family History Family History Mother Hypertension Social History Social History Social History: Surrogate medical decision maker: Liborio Gracia, spouse. Code status: Full code. Smoking packs per day: 0.1 Smoking cigarettes per day: 2.0 Years smoked: 10 Smoking pack-years: 1.00 Smoking status: Former smoker Tobacco type: cigarettes Second hand tobacco smoke exposure: No Smoking end date: 11/13/22 Alcohol intake: current Drinks per week: 8 Substance use: never Substance use type: does not use Lack of Transportation: No Lack of Food: Never True Current Housing:
== END 2023-09-11 11:02 | disposition home or self-care (01) ==
PROVIDERS: Emergency Provider Nurse Practitioner; PCP Internal Medicine
DX: J06.9 Acute upper respiratory infection, unspecified (principal); J32.9 Chronic sinusitis, unspecified; I10 Essential (primary) hypertension; Z85.3 Personal history of malignant neoplasm of breast; Z87.891 Personal history of nicotine dependence
CPT/HCPCS: 99211; G0463

== ENCOUNTER 2023-09-13 10:26 | Outpatient (CLI) | payer OTHER, SELFPAY ==
--- NOTE | ~2023-09-13 | CT_ITS ---
CT ANGIOGRAM NECK AND HEAD History: Bilateral periventricular infarcts. Technique: Axial noncontrast imaging of the brain was performed. Serial spiral axial images through t he head and neck were then obtained during arterial phase IV injection of 100 cc of Omnipaque 350. 3- D postprocessing and MIP images were then reconstructed on the remote workstation. Dose reduction juanito hnique was used on this scan by utilizing automated exposure control and iterative reconstruction juanito hnique. The dose-length product (DLP) was 1447.32 mGy-cm. COMPARISON: 12/13/2022 CTA neck findings: Bilateral vertebral arteries are patent. Bilateral common carotid, internal carot id, and external carotid arteries are patent. Calcified plaque at the distal right common carotid art carmen results in a 50% stenosis in this region. No internal carotid artery stenosis seen on either side . The proximal right internal carotid artery demonstrates 0% stenosis relative to the normal distal a rtery lumen diameter. The proximal left internal carotid artery demonstrates 0% stenosis relative to the normal distal artery lumen diameter. CTA head findings: Distal vertebral arteries, basilar artery, and posterior cerebral arteries are pat ent. Distal internal carotid arteries, middle cerebral arteries, anterior cerebral arteries are paten t. No large vessel occlusion. No aneurysm. There is atherosclerotic calcification of the cavernous po rtions of the distal internal carotid arteries, left worse than right. Axial noncontrast imaging of the brain demonstrates probable small chronic lacunar infarct in the rig ht periventricular white matter. No acute hemorrhage, mass lesion, or acute infarct identified. Ventr icles and subarachnoid spaces are mildly dilated. Reyes-white differentiation preserved. Paranasal sin uses and mastoid air cells are clear.. Impression: 50% stenosis of the distal right common carotid artery related to prominent calcified plaque at this location. No internal carotid artery stenosis. No large vessel occlusion. Reviewed, dictated and finalized at location [facility]. ET STEAMER Impression: 50% stenosis of the distal right common carotid artery related to prominent rufina cified plaque at this location. No internal carotid artery stenosis. No large vessel occlusion.
[2023-09-13 11:07] LABS: Estimated Glomerular Filt Rate > 60
== END 2023-09-13 10:27 | disposition home or self-care (01) ==
LOC: ANHIMG 10:28
PROVIDERS: PCP Internal Medicine; Visit Provider Student in an Organized Health Care Education/Training Program
DX: I63.9 Cerebral infarction, unspecified (principal); I65.21 Occlusion and stenosis of right carotid artery
CPT/HCPCS: 70496; 70498; Q9967

== ENCOUNTER 2023-09-14 07:39 | Outpatient (CLI) | payer OTHER, SELFPAY ==
[2023-09-14 08:31] LABS: LDL Cholesterol Direct 49 mg/dL
[2023-09-14 10:05] LABS: Hemoglobin A1C 6.1 % (<5.7)
== END 2023-09-14 07:40 | disposition home or self-care (01) ==
PROVIDERS: PCP Internal Medicine; Visit Provider Student in an Organized Health Care Education/Training Program
DX: I63.9 Cerebral infarction, unspecified (principal)
CPT/HCPCS: 36415; 83036; 83721

== ENCOUNTER 2023-11-20 10:07 | Outpatient (CLI) | payer OTHER, SELFPAY ==
--- NOTE | ~2023-11-20 | MM_ITS ---
EXAMINATION: MM screening teresa BI w ro HISTORY: Screening TECHNIQUE: Craniocaudal and mediolateral oblique 3-D tomosynthesis images were obtained and synthetic 2-D images were generated. CAD analysis was submitted and interpreted. COMPARISON: Comparison to multiple prior studies sequentially, with oldest reviewed study dated 05/2017. BREAST PARENCHYMAL COMPOSITION: Dense: The breasts are heterogeneously dense, which may obscure small masses FINDINGS: There is no evidence of suspicious mass, calcification, or architectural distortion to sugg est malignancy in either breast. There has been no suspicious interval change. IMPRESSION: 1. No mammographic evidence of malignancy. 2. Recommend routine screening mammography in one year. BI-RADS Category 1: Negative Reviewed, dictated and finalized at location [facility]. O OPERATOR
== END 2023-11-20 10:08 | disposition home or self-care (01) ==
PROVIDERS: PCP Internal Medicine; Visit Provider Internal Medicine
DX: Z12.31 Encounter for screening mammogram for malignant neoplasm of breast (principal)
CPT/HCPCS: 77063; 77067

== ENCOUNTER 2024-02-13 10:06 | Emergency (ER) | payer OTHER, SELFPAY ==
[2024-02-13] VITALS (10 sets, daily range): BP systolic 114–136; BP diastolic 57–72; PULSE 66–79; RESP 12–19; TEMP 36.6–36.8; O2SAT 92–100
--- NOTE | ~2024-02-13 | CT_ITS ---
EXAMINATION: CTA chest PE protocol DATE: 02/13/2024 14:45 INDICATION: Dyspnea, elevated d-dimer. Dizziness. TECHNIQUE: Computed tomography angiography (CTA) of the chest was performed with 100 mL Omnipaque-350 intravenous contrast timed to evaluate the pulmonary arteries. Coronal maximum intensity projection 3D-reconstructions were created by the technologist. Automated exposure control and iterative reconst ruction technique were employed. Exam dose: 198.37 mGy-cm total exam DLP. COMPARISON: 02/13/2024 2 view chest FINDINGS: There is diagnostic contrast enhancement of the pulmonary arteries and no evidence of pulmo nary embolism. No thoracic aortic aneurysm or dissection is detected. No hilar or mediastinal mass lesion or lymphad enopathy. Coronary artery atherosclerotic calcifications. No thoracic aortic aneurysm or dissection. Bilateral apical scarring. There are bilateral scattered patchy tree-in-bud infiltrates including the posterior segments of the upper lobes and middle lobe and lingula with multiple scattered areas involving both lower lobes as w ell. Small sliding hiatal hernia. Prominent degenerative disease at C5-6 and C6-7. IMPRESSION: Multiple scattered areas of infiltrate in both lungs suggesting and infection/bilateral pneumonia. Recommend short-term follow-up to exclude any pulmonary mass lesion No evidence of pulmonary embolism Small sliding hiatal hernia Reviewed, dictated and finalized at [facility]. Reviewed, dictated and finalized at location B. IMPRESSION: Multiple scattered areas of infiltrate in both lungs suggesting an d infection/bilateral pneumonia. Recommend short-term follow-up to exclude any pulmonary mass lesion No evidence of pulmonary embolism Small sliding hiatal hernia
--- NOTE | ~2024-02-13 | XR_ITS ---
Clinical Indication: Dyspnea PA and lateral views of the chest: Comparison: 04/24/2023 Findings: There is mild patchy haziness in the lungs, sparing the upper lobes/apices. No underlying C OPD. Cardiomediastinal silhouette is within normal limits. Bones and soft tissues are unremarkable. Impression: Patchy hazy airspace disease, suspicious for multifocal pneumonia/atypical infection versus chronic c hange. Underlying COPD. Reviewed, dictated and finalized at location M. Impression: Patchy hazy airspace disease, suspicious for multifocal pneumonia/atypical infe ction versus chronic change. Underlying COPD.
--- NOTE | 2024-02-13 10:28 | ECG_ITS ---
SEE SCANNED COPY FOR CONFIRMED REPORT MTDD
[2024-02-13 11:18] LABS: Basophils Absolute Auto 0.1 K/mm3 (0.0-0.1); Basophils Percent Auto 0.9 % (0.2-1.2); Eosinophils Absolute Auto 0.2 K/mm3 (0-0.3); Hematocrit 41.1 % (37.0-47.0); Immature Granulocyte Absolute 0.01 K/mm3 (0.00-0.031); Immature Granulocyte Percent A 0.1 % (0-0.5); Lymphocytes Absolute Auto 2.12 K/mm3 (0.9-3.2); Lymphocytes Percent Auto 26.4 % (18.3-44.2); Mean Corpuscular HGB Conc 31.6 g/dl (32-36); Mean Corpuscular Hemoglobin 31.5 pg (26-34); Mean Corpuscular Volume 99.5 fl (80-100); Mean Platelet Volume 10.6 fl (7.4-10.4); Monocytes Absolute Auto 0.5 K/mm3 (0.1-0.6); Monocytes Percent Auto 6.5 % (2.6-8.5); Neutrophils Absolute Auto 5.1 K/mm3 (1.3-6.7); Neutrophils Percent Auto 63.1 % (45.5-73.1); Platelet Count Result 249 k/mm3 (150-375); Red Blood Count 4.13 M/mm3 (4.2-5.4); Red Cell Distribution Width 12.5 % (11.5-14.5)
[2024-02-13 11:29] LABS: Alanine Aminotransferase 17 U/L (6-35); Alkaline Phosphatase 108 U/L (38-126); Anion Gap 12 mmol/L (4-12); Aspartate Amino Transferase 29 U/L (14-36); Bilirubin,Total 0.7 mg/dL (0.2-1.3); Blood Urea Nitrogen 13 mg/dL (7-17); Calcium 10.2 mg/dL (8.4-10.2); Carbon Dioxide 26 mmol/L (22-30); Chloride 100 mmol/L (98-107); Estimated CRCL calculation 58 ml/min; Estimated Glomerular Filt Rate > 60; Glucose 166 mg/dL (65-110); Potassium 3.9 mmol/L (3.4-5.0); Sodium 138 mmol/L (137-145)
[2024-02-13 11:41] LABS: Troponin I < 0.012 ng/mL (0.000-0.034)
--- NOTE | 2024-02-13 12:54 | ED.GENADULT ---
HPI - General Adult General Chief complaint: Shortness of Breath/Dyspnea Stated complaint: SOB Time Seen by Provider: 02/13/24 12:05 History of Present Illness HPI narrative: A 73-year-old woman with a history aortic stenosis and hypertension presenting for difficulty breathing. Patient that for the last 4 days in the morning she has been having a sudden onset dyspnea, hyperventilation and presyncope. The symptoms then resolved after around hours she is able to calm herself down. The patient was on her way to get PFTs earlier today however had to cancel her appointment because she had another event when she arrived at the clinic. Patient states that she has been having significant anxiety about her health ever since she had a stroke 1 year ago. Her says that is getting the point that the patient does not want the house or go to the mailbox because she is concerned something may happen during the walk down the driveway. Patient denies fevers chills chest pain difficulty breathing abdominal pain lower extremity edema, history of blood clots. Patient does note she occasionally has a cough with yellow sputum. 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 Related Data Home Medications Medication Instructions Recorded Confirmed aspirin 81 mg tablet,delayed 81 mg PO DAILY 05/22/23 02/06/24 release (Adult Aspirin Regimen) metoprolol succinate 25 mg 12.5 mg PO DAILY 08/30/23 02/06/24 tablet,extended release 24 hr Allergies Allergy/AdvReac Type Severity Reaction Status Date / Time amoxicillin Allergy Unknown Abdominal Verified 02/13/24 10:06 pain erythromycin base Allergy Unknown Gastrointestinal Verified 02/13/24 10:06 Upset morphine Allergy Unknown Gastrointestinal Verified 02/13/24 10:06 Upset PMFSH Past Medical History Medical History Benign essential hypertension Cancer of left breast Invasive ductal carcinoma, 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 COVID-19 Diastolic dysfunction Echocardiogram in July 2018 showed normal LV function, EF 60 to 65%, grade 1 diastolic dysfunction. History of breast cancer in female Major depression in remission Mild aortic stenosis Valve area of 2 cm2 on echo in July 2018. Normal nuclear stress test (04/2021) Prediabetes Surgical History Surgical History History of ankle surgery History of arthroscopy of right shoulder History of basal cell carcinoma excision (12/2007) Left nasal ala. History of section History of colonoscopy (08/2007) Normal colonoscopy. Internal hemorrhoidal tissue. History of hammertoe correction (08/2002) History of partial mastectomy of left breast (02/2011) History of repair of hiatal hernia Family History Family History Mother Hypertension Social History Social History Social History: Surrogate medical decision maker: Liborio Haasrosa m, spouse. Code status: Full code. Smoking packs per day: 0.1 Smoking cigarettes per day: 2.0 Years smoked: 10 Smoking pack-years: 1.00 Smoking status: Former smoker Tobacco type: cigarettes Second hand tobacco smoke exposure: No Smoking end date: 11/13/22 Alcohol intake: current Drinks per week: 8 Substance use: never Substance use type: does not use Lack of Transportation: No Lack of Food: Never True Current Housing: I Have Housing Concerned About Future Housing: No Difficulty Paying Gas/Electric Bills: No Difficulty Paying for Meds: No Currently Unemployed: No Education: Master's Degree or Higher Difficulty w/ Childcare or Family Care: No Additional living arrangements comments: Lives with spouse in [place]. Spiritual care concerns: No Exam Narrative: APPEARANCE: No ap
[2024-02-13 13:08] LABS: Influenza A QL RT-PCR Negative (Negative); Influenza B QL RT-PCR Negative (Negative); RSV RNA, RT-PCR Negative (Negative); SARS-CoV-2 RNA PCR Negative (Negative)
[2024-02-13 13:30] LABS: D Dimer 1.71 ug/mL (<0.48)
[2024-02-13 13:43] LABS: NT Pro B Type Natriuretic Pept 130 pg/mL (19.9-100)
== END 2024-02-13 16:48 | disposition home or self-care (01) ==
PROVIDERS: Student in an Organized Health Care Education/Training Program; Emergency Provider Emergency Medicine; PCP Internal Medicine
DX: J18.9 Pneumonia, unspecified organism (principal); Z20.822 Contact with and (suspected) exposure to COVID-19; I35.0 Nonrheumatic aortic (valve) stenosis; I11.9 Hypertensive heart disease without heart failure; R73.03 Prediabetes; Z86.73 Personal history of transient ischemic attack (TIA), and cerebral infarction without residual deficits; Z85.3 Personal history of malignant neoplasm of breast; Z86.16 Personal history of COVID-19; Z85.828 Personal history of other malignant neoplasm of skin; Z87.891 Personal history of nicotine dependence; Z90.12 Acquired absence of left breast and nipple; Z79.82 Long term (current) use of aspirin
CPT/HCPCS: 36415; 71046; 71275; 80053; 83880; 84484; 85025; 85380; 87637; 93005; 99284; Q9967

== ENCOUNTER 2024-03-05 14:41 | Outpatient (CLI) | payer OTHER, SELFPAY ==
--- NOTE | ~2024-03-05 | CT_ITS ---
Clinical Indication: Pulmonary nodule CT Scan of the Chest and Abdomen without Contrast: Technique: Contiguous sections were acquired throughout the chest and abdomen, without IV contrast ad ministration. Dose reduction technique was used on this scan by utilizing automated exposure control and iterative reconstruction technique. The dose-length product (DLP) was 206.80 mGy-cm. COMPARISON: 02/13/2024 Findings: There is no evidence of any significant mediastinal, hilar or axillary lymphadenopathy. Extensive cor onary artery calcifications are present. There is no evidence of pleural or pericardial effusion. There are extensive tree-in-bud opacities in the lungs, with relative basilar predominance. There are areas of chronic bronchial atelectasis and scarring at the lingula and right middle lobe. There are several scattered additional focal areas of chronic interstitial change peripherally. There are sever al focal irregular areas of consolidation, which are similar to prior exam. The liver, spleen, pancreas, gallbladder, adrenals and kidneys are within normal limits. No evidence of aortic aneurysm. No lymphadenopathy. Small hiatal hernia present. Visualized bowel loops are otherwise unremarkable. No ascites. There are atherosclerotic calcifications of the abdominal aorta. Impression: Findings consistent with extensive acute on chronic small airways infection, essentially stable from most recent prior exam. Small hiatal hernia. Reviewed, dictated and finalized at [facility]. Impression: Findings consistent with extensive acute on chronic small airways infection, es sentially stable from most recent prior exam. Small hiatal hernia.
== END 2024-03-05 14:42 | disposition home or self-care (01) ==
LOC: ANHIMG 14:42
PROVIDERS: PCP Internal Medicine; Visit Provider Nurse Practitioner
DX: R91.1 Solitary pulmonary nodule (principal); K44.9 Diaphragmatic hernia without obstruction or gangrene
CPT/HCPCS: 71250; 74150

== ENCOUNTER 2024-03-12 16:05 | Outpatient (CLI) | payer OTHER, SELFPAY ==
[2024-03-12 17:33] LABS: Vitamin D 25 Hydroxy 33.5 ng/mL
== END 2024-03-12 16:06 | disposition home or self-care (01) ==
LOC: ANHLAB 16:06
PROVIDERS: PCP Internal Medicine; Visit Provider Nurse Practitioner
DX: I65.29 Occlusion and stenosis of unspecified carotid artery (principal); J32.9 Chronic sinusitis, unspecified; R73.03 Prediabetes; E55.9 Vitamin D deficiency, unspecified
CPT/HCPCS: 36415; 82306; 83036

== ENCOUNTER 2024-03-26 12:32 | Outpatient (CLI) | payer OTHER, SELFPAY ==
--- NOTE | 2024-03-27 10:54 | WPDPFTINT ---
PFT Procedure Performed PFT Procedure Performed Spirometry with Pre/Post Bronchodilator Plethysmography (Lung Vol) Diffusing Cap (DLCO) Flow Vol Loop PFT Interpretation This is a pulmonary function test with pre and post-bronchodilator spirometry, plethysmography and diffusing capacity. The test was performed and results interpreted in accordance with the 2019 and 2005 ATS/ERS Task Force guidelines respectively using the Global Lung Function Initiative-2012 reference equations. Patient demonstrated good effort and cooperation. Reproducibility criteria were met. The quality of the pre bronchodilator spirometry maneuver was Grade A and post bronchodilator spirometry maneuver was Grade A. Findings: Spirometry: There is decreased maximal expiratory airflow at all lung volumes with concave expiratory flow tracing. The contour the inspiratory flow tracing is normal. The pre bronchodilator FVC is 1.79 L, 65% predicted. The pre bronchodilator FEV1 is 0.88 L, 42% predicted. The pre bronchodilator FEV1: FVC ratio is 49%. The post bronchodilator FVC is 1.67 L, representing a 7% decrease. The post bronchodilator FEV1 is 0.88 L, representing 1% decrease. The post bronchodilator FEV1: FVC ratio is 53%. Plethysmography: The total lung capacity is 4.06 L, 80% predicted. The functional residual capacity is 2.95 L, 101% predicted. The residual volume is 2.27 L, 100% predicted. Diffusing capacity: The diffusing capacity unadjusted for hemoglobin and carboxyhemoglobin is 8.3, 42% predicted. The diffusing capacity adjusted for alveolar volume is 3.66, 87% predicted. Impression: There is a severe obstructive abnormality. There is no significant improvement after inhaling a single dose of albuterol. The lung volumes are normal. The diffusing capacity unadjusted for hemoglobin and carboxyhemoglobin is moderately decreased and normalizes when adjusted for alveolar volume. There are no prior studies for comparison
== END 2024-03-26 12:33 | disposition home or self-care (01) ==
LOC: ANHPFT 12:33
PROVIDERS: PCP Internal Medicine; Visit Provider Nurse Practitioner
DX: R06.02 Shortness of breath (principal); R94.2 Abnormal results of pulmonary function studies
CPT/HCPCS: 94060; 94726; 94729

== ENCOUNTER 2024-05-01 18:57 | Observation (INO) | payer OTHER, SELFPAY ==
--- NOTE | ~2024-05-01 | XR_ITS ---
XR chest 1V portable Ordering provider: Garrett Ley MD History: 73 years Female with . Chest pain . Comparison: February 13, 2024 FINDINGS: MEDIASTINUM: The cardiac silhouette is not enlarged. LUNGS: No effusions or pneumothorax. Bilateral interstitial changes suggestive of pneumonitis and thi s likely pulmonary edema. Underlying fibrotic changes are possible. OTHER: No free air under the diaphragm. IMPRESSION: Bilateral interstitial changes suggestive of pneumonitis. Underlying fibrotic changes and this likely pulmonary edema is not excluded. Clinical correlation advised. Reviewed, dictated and finalized at location A. IMPRESSION: Bilateral interstitial changes suggestive of pneumonitis. Underlying fibrotic c hanges and this likely pulmonary edema is not excluded. Clinical correlation ad vised.
--- NOTE | 2024-05-01 19:09 | ECG_ITS ---
Test Date: 2024-05-01 19:19:33 Measurements Intervals [place] Rate: 81 P: 57 [place]: 151 QRS: 14 QRSD: 78 T: 49 QT: 378 QTc: 440 Interpretive Statements SINUS RHYTHM WITH OCCASIONAL SUPRAVENTRICULAR PREMATURE COMPLEXES POSSIBLE LEFT ATRIAL ENLARGEMENT [-0.1mV P WAVE IN V1/V2] MILD ST SEGMENT DEPRESSION CONSIDER INFERIOR ISCHEMIA SEPTAL MYOCARDIAL INFARCTION , OF INDETERMINATE AGE [40+ ms Q WAVE IN V1/V2] ABNORMAL ECG No previous ECG available for comparison Electronically Signed On 05-02-2024 14:52:18 CDT by Timothy Proctor M.D.
--- NOTE | 2024-05-01 19:14 | ED.NAVMDI ---
HPI - Nausea/Vomiting/Diarrhea General Chief complaint: Nausea/Vomiting/Diarrhea Stated complaint: nausea,vomiting, dizzy Time Seen by Provider: 05/01/24 18:58 Source: patient Mode of arrival: ambulatory Limitations: no limitations History of Present Illness HPI Narrative: This is a 73-year-old female, with history of aortic stenosis and CVA of unknown cause without deficit, who presents to the emergency department complaining of nausea and vomiting beginning approximately 09:00 o'clock this morning. The patient states last night, she was in her normal health participating at [employer]. This morning she woke and felt generally nauseous without any other acute symptoms. She states she had 1 episode of loose stools without blood. She denies vomiting. During evaluation in the emergency department, she began complaining of chest pain. She denies presence of pain until this point. She has no other complaints at this time. Related Data Home Medications Medication Instructions Recorded Confirmed aspirin 81 mg tablet,delayed 81 mg PO DAILY 05/22/23 02/29/24 release (Adult Aspirin Regimen) metoprolol succinate 25 mg 12.5 mg PO DAILY 08/30/23 02/29/24 tablet,extended release 24 hr Allergies Allergy/AdvReac Type Severity Reaction Status Date / Time amoxicillin Allergy Unknown Abdominal Verified 03/12/24 15:18 pain erythromycin base Allergy Unknown Gastrointestinal Verified 03/12/24 15:18 Upset morphine Allergy Unknown Gastrointestinal Verified 03/12/24 15:18 Upset Review of Systems Review of Systems: All systems reviewed & are unremarkable except as noted in HPI and below PMFSH Past Medical History Medical History Benign essential hypertension Cancer of left breast Invasive ductal carcinoma, 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 COPD (chronic obstructive pulmonary disease) COVID-19 Diastolic dysfunction Echocardiogram in July 2018 showed normal LV function, EF 60 to 65%, grade 1 diastolic dysfunction. History of breast cancer in female Major depression in remission Mild aortic stenosis Valve area of 2 cm2 on echo in July 2018. Normal nuclear stress test (04/2021) Prediabetes Surgical History Surgical History History of ankle surgery History of arthroscopy of right shoulder History of basal cell carcinoma excision (12/2007) Left nasal ala. History of section History of colonoscopy (08/2007) Normal colonoscopy. Internal hemorrhoidal tissue. History of hammertoe correction (08/2002) History of partial mastectomy of left breast (02/2011) History of repair of hiatal hernia Family History Family History Mother Hypertension Social History Social History Social History: Surrogate medical decision maker: Liborio Maldonadokian, spouse. Code status: Full code. Smoking packs per day: 0.1 Smoking cigarettes per day: 2.0 Years smoked: 10 Smoking pack-years: 1.00 Smoking status: Former smoker Tobacco type: cigarettes Second hand tobacco smoke exposure: No Smoking end date: 11/13/22 Alcohol intake: current Drinks per week: 8 Substance use: never Substance use type: does not use Lack of Transportation: No Lack of Food: Never True Current Housing: I Have Housing Concerned About Future Housing: No Difficulty Paying Gas/Electric Bills: No Difficulty Paying for Meds: No Currently Unemployed: No Education: Master's Degree or Higher Difficulty w/ Childcare or Family Care: No Additional living arrangements comments: Lives with spouse in [place]. Spiritual care concerns: No Exam Narrative: GENERAL: Well-developed, well-nourished, and in no acute distress. appears uncomfortable HEAD: Normocephalic, atraumatic. EYES: PERRLA and EOM
[2024-05-01 19:16] VITALS: BP 182/90; PULSE 82; RESP 16; O2SAT 100
[2024-05-01] MEDS: ONDANSETRON INJ 4 MG/2 ML VIAL IV PUSH (19:25)
[2024-05-01 19:28] LABS: Basophils Absolute Auto 0.1 K/mm3 (0.0-0.1); Basophils Percent Auto 0.5 % (0.2-1.2); Eosinophils Percent Auto 0.1 % (0-4.4); Hematocrit 37.1 % (37.0-47.0); Hemoglobin 12.6 g/dL (12.0-15.0); Immature Granulocyte Absolute 0.02 K/mm3 (0.00-0.031); Immature Granulocyte Percent A 0.2 % (0-0.5); Lymphocytes Absolute Auto 1.82 K/mm3 (0.9-3.2); Lymphocytes Percent Auto 19.4 % (18.3-44.2); Mean Corpuscular Hemoglobin 32.1 pg (26-34); Mean Corpuscular Volume 94.4 fl (80-100); Mean Platelet Volume 9.8 fl (7.4-10.4); Monocytes Absolute Auto 0.5 K/mm3 (0.1-0.6); Monocytes Percent Auto 5.7 % (2.6-8.5); Neutrophils Absolute Auto 6.9 K/mm3 (1.3-6.7); Neutrophils Percent Auto 74.1 % (45.5-73.1); Platelet Count Result 214 k/mm3 (150-375); Red Blood Count 3.93 M/mm3 (4.2-5.4); Red Cell Distribution Width 12.4 % (11.5-14.5); White Blood Count 9.4 K/mm3 (4.5-10.0)
[2024-05-01] MEDS: ASPIRIN 81 MG CHEWABLE TABLET 324 MG PO (19:29)
[2024-05-01] MEDS: NITROGLYCERIN SL 0.4 MG TABLET SUBLINGUAL (19:30)
[2024-05-01 19:38] LABS: Alanine Aminotransferase 25 U/L (6-35); Albumin Level 4.8 g/dL (3.5-5.1); Alkaline Phosphatase 117 U/L (38-126); Anion Gap 20 mmol/L (4-12); Aspartate Amino Transferase 37 U/L (14-36); Bilirubin,Total 1.2 mg/dL (0.2-1.3); Blood Urea Nitrogen 15 mg/dL (7-17); Calcium 9.8 mg/dL (8.4-10.2); Carbon Dioxide 19 mmol/L (22-30); Chloride 90 mmol/L (98-107); Estimated CRCL calculation 55 ml/min; Estimated Glomerular Filt Rate > 60; Glucose 155 mg/dL (65-110); Potassium 4.1 mmol/L (3.4-5.0); Sodium 129 mmol/L (137-145)
[2024-05-01 19:42] LABS: Prothrombin Time 13.3 Seconds (11.1-14.7)
--- NOTE | 2024-05-01 19:45 | ECG_ITS ---
Test Date: 2024-05-01 19:54:47 Measurements Intervals [place] Rate: 74 P: 41 [place]: 158 QRS: 24 QRSD: 80 T: 25 QT: 414 QTc: 461 Interpretive Statements SINUS RHYTHM WITH OCCASIONAL SUPRAVENTRICULAR PREMATURE COMPLEXES POSSIBLE RIGHT VENTRICULAR CONDUCTION DELAY [RSR (QR) IN V1/V2] MINOR ST SEGMENT ABNORMALITY ABNORMAL ECG Compared to ECG 05/01/2024 19:19:33 ST (T wave) deviation now present Myocardial infarct finding no longer present Electronically Signed On 05-02-2024 14:52:49 CDT by Timothy Proctor M.D.
[2024-05-01 19:49] LABS: Troponin I < 0.012 ng/mL (0.000-0.034)
[2024-05-01 20:07] LABS: Influenza A QL RT-PCR Negative (Negative); Influenza B QL RT-PCR Negative (Negative); RSV RNA, RT-PCR Negative (Negative); SARS-CoV-2 RNA PCR Negative (Negative)
[2024-05-01] MEDS: PROCHLORPERAZINE EDISYLATE 10 MG/2 ML VIAL IV PUSH (20:10)
[2024-05-01 20:14] LABS: Acetaminophen < 10 ug/mL (10-30); Ethanol < 10 mg/dL (<10); Salicylate < 1.0 mg/dL (2-20)
[2024-05-01 20:34] VITALS: BP 154/76; PULSE 69; RESP 17; O2SAT 97
[2024-05-01 20:35] LABS: Lactic Acid Reflex 2.9 mmol/L (0.7-2.0)
--- NOTE | 2024-05-01 20:44 | PM.IMHP ---
H&P: HPI History of Present Illness Date/Time: 05/01/24 20:44 Chief Complaint: chest pain Narrative: this is a 73-year-old female with past medical history significant for hypertension, COPD diastolic dysfunction breast cancer aortic stenosis. Patient presents to the emergency room due to episode of nausea, dry heaving chest discomfort in the retrosternal area. Patient has been in her usual state of health up until this point denies any vomiting denies fevers rigors chills. Preliminary workup has been essentially nonrevealing upset to for a sodium of 129 chloride 90, chest x-ray with infiltrate XR chest 1V portable Ordering provider: Garrett Ley MD History: 73 years Female with . Chest pain . Comparison: February 13, 2024 FINDINGS: MEDIASTINUM: The cardiac silhouette is not enlarged. LUNGS: No effusions or pneumothorax. Bilateral interstitial changes suggestive of pneumonitis and this likely pulmonary edema. Underlying fibrotic changes are possible. OTHER: No free air under the diaphragm. IMPRESSION: Bilateral interstitial changes suggestive of pneumonitis. Underlying fibrotic changes and this likely pulmonary edema is not excluded. Clinical correlation advised. 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 COPD (chronic obstructive pulmonary disease) COVID-19 Diastolic dysfunction Echocardiogram in July 2018 showed normal LV function, EF 60 to 65%, grade 1 diastolic dysfunction. History of breast cancer in female Major depression in remission Mild aortic stenosis Valve area of 2 cm2 on echo in July 2018. Normal nuclear stress test (04/2021) Prediabetes Surgical History Surgical History History of ankle surgery History of arthroscopy of right shoulder History of basal cell carcinoma excision (12/2007) Left nasal ala. History of section History of colonoscopy (08/2007) Normal colonoscopy. Internal hemorrhoidal tissue. History of hammertoe correction (08/2002) History of partial mastectomy of left breast (02/2011) History of repair of hiatal hernia Family History Family History Mother Hypertension Social History Social History Social History: Surrogate medical decision maker: Liborio rGacia, spouse. Code status: Full code. Smoking packs per day: 0.1 Smoking cigarettes per day: 2.0 Years smoked: 10 Smoking pack-years: 1.00 Smoking status: Former smoker Tobacco type: cigarettes Second hand tobacco smoke exposure: No Smoking end date: 11/13/22 Alcohol intake: never Drinks per week: 8 Substance use: never Substance use type: does not use Do You Feel Safe in your Home?: Yes Lack of Transportation: No Lack of Food: Never True Current Housing: I Have Housing Concerned About Future Housing: No Difficulty Paying Gas/Electric Bills: No Difficulty Paying for Meds: No Currently Unemployed: No Education: Master's Degree or Higher Difficulty w/ Childcare or Family Care: No Additional living arrangements comments: Lives with spouse in [place]. Spiritual care concerns: No Meds Home Medications and Allergies Home Medications Medication Instructions Recorded Confirmed Type aspirin 81 mg tablet,delayed 81 mg PO DAILY 05/22/23 05/01/24 History release (Adult Aspirin Regimen) metoprolol succinate 25 mg 12.5 mg PO DAILY 08/30/23 05/01/24 History tablet,extended release 24 hr atorvastatin 20 mg tablet 20 mg PO DAILY #90 tabs 01/21/24 05/01/24 Rx fluoxetine 10 mg capsule (Prozac) 10 mg PO DAILY #90 caps 02/29/24 05/01/24 Rx
[2024-05-01] MEDS: SODIUM CHLORIDE 0.9% IV 1,000 ML 999 ML IV CONT (20:48)
[2024-05-01 21:17] LABS: Add Urine Microscopic? YES; Appearance Urine Clear (Clear); Bilirubin Urine Negative (Negative); Blood Urine Negative (Negative); Color Urine Yellow (Yellow); Glucose Urine UA Negative (Negative); Ketones Urine 3+ mg/dL (Negative); Leukocyte Esterase Ur 1+ LEU/UL (Negative); Need Manual Microscopic Reviewed; Nitrate Urine Negative (Negative); Protein Urine 1+ mg/dL (Negative); RBC Urine 0-2 /hpf (0-2); Specific Grav Ur 1.021 (1.001-1.035); Squamous Epithelial Cell Urine Occasional /hpf (Few); Urobilinogen Urine 0.2 mg/dL (<2.0); WBC Urine 0-5 /hpf (0-3)
[2024-05-01 21:20] LABS: Bacteria Urine Trace /hpf
[2024-05-01 21:34] VITALS: BMI 19.6
[2024-05-01 21:35] VITALS: BP 134/62; PULSE 65; RESP 18; TEMP 36.5; O2SAT 98
--- NOTE | 2024-05-01 21:41 | ADMGEN ---
This patient, Lorna Gracia, was admitted to Medical Room 247-. Patient/family oriented to hospital policies and general routines including ID bracelet, bed and alarms, visiting hours, pain management, procedures, bathroom and other care routines, personal items, smoking policy, room service/diet, and visiting hours. Information on how to activate the Rapid Response Team has been discussed. Patient/Family are encouraged to report perceived risks to care and to ask questions if they do not understand what they are told or what they should do.
[2024-05-01 22:30] LABS: Troponin I < 0.012 ng/mL (0.000-0.034)
[2024-05-01 23:21] VITALS: BP 140/66; PULSE 81; RESP 18; O2SAT 98
[2024-05-01 23:24] LABS: Reflex Lactic Acid Yes or No Add Lactic
[2024-05-01] MEDS: PROMETHAZINE HCL 25 MG/ML AMPUL 12.5 MG IV PUSH (23:29)
[2024-05-01 23:52] LABS: Lactic Acid 2.1 mmol/L (0.7-2.0)
[2024-05-02] VITALS (14 sets, daily range): BP systolic 90–138; BP diastolic 44–68; PULSE 65–87; RESP 16–18; TEMP 36.5–36.9; O2SAT 95–97
--- NOTE | 2024-05-02 | ECHO_ITS ---
Patient Info Name: Lorna Gracia Age: 73 years : 1950 Gender: Female Ht: 64 in Wt: 115 lbs BSA: 1.53 m2 HR: 77 bpm BP: 96 / 48 mmHg Heart Rhythm: Sinus Rhythm Technical Quality: Good Exam Date: 05/02/2024 11:24 AM Exam Location: Echo Lab Patient Status: Outpatient Admit Date: 05/01/2024 Staff Ordering Physician: Iban Spivey MD Multimedia Developer: Kirill Garcia RDCS Attending Provider: Kary Sanchez APRN Referring Physician: Patric PERRY; Exam Type: CA echo doppler color flow Study Info Indications - chest pain Complete two-dimensional, color flow and Doppler transthoracic echocardiogram is performed. Summary 1. Complete two-dimensional, color flow and Doppler transthoracic echocardiogram is performed. 2. Normal left ventricular size thickness and systolic function, no significant hypertrophy. 3. Mild mitral regurgitation. 4. Aortic stenosis which appears to be mild by Doppler and lack of LVH is evidence of no significant stenosis. Left Ventricle Left ventricular chamber dimension is normal. Left ventricular systolic function is normal, estimated at 55-60%. There is no increased left ventricular wall thickness. The left ventricular diastolic function is grade I diastolic dysfunction. Right Ventricle Right ventricular chamber dimension is mildly enlarged. Left Atria Left atrial chamber dimension is mildly enlarged. Right Atria Right atrial chamber dimension is moderately enlarged. Aortic Valve The aortic valve is trileaflet. There is moderate aortic valve sclerosis. Pulmonic Valve The pulmonic valve is not well visualized. Mitral Valve The mitral valve has normal leaflets. There is trace mitral valve regurgitation. Tricuspid Valve The tricuspid valve leaflets are normal. Pericardium/Pleural The pericardium appears normal. Aorta The aortic root size at the sinus of Valsalva is normal. Left Ventricular Outflow Tract Name Value Normal LVOT 2D LVOT Diameter 1.8 cm LVOT Doppler LVOT Peak Gradient 3 mmHg LVOT Mean Gradient 2 mmHg LVOT VTI 22 cm LVOT VTI/AV VTI Ratio 0.4 LVOT Stroke Volume 55 ml LVOT CO 3.6 l/min LVOT CI 2.3 l/min/m2 Pulmonic Valve Name Value Normal PV Doppler PV Peak Gradient 4 mmHg Mitral Valve Name Value Normal MV Doppler MV Decel Barton 327 cm/s2 MV PHT 74 ms MV Area (PHT) 3.0 cm2 4.0-5.0 MV Regurgitation Doppler -
--- NOTE | 2024-05-02 00:15 | ECG_ITS ---
Test Date: 2024-05-02 00:35:13 Measurements Intervals [place] Rate: 77 P: 73 VA: 158 QRS: 66 QRSD: 86 T: 71 QT: 398 QTc: 451 Interpretive Statements SINUS RHYTHM WITH OCCASIONAL SUPRAVENTRICULAR PREMATURE COMPLEXES ST SEGMENT DEPRESSION CONSIDER INFEROLATERAL ISCHEMIA ABNORMAL ECG Compared to ECG 05/01/2024 19:54:47 No significant changes Electronically Signed On 05-02-2024 14:56:36 CDT by Timothy Proctor M.D.
[2024-05-02] MEDS: BELLADONNA ALK/PHENOB ELIX 10 ML, MAG HYDROX/ALUMINUM HYD/SIMETH 30 ML, LIDOCAINE HCL 2... PO (00:43)
[2024-05-02 02:38] LABS: Troponin I < 0.012 ng/mL (0.000-0.034)
[2024-05-02] MEDS: cefTRIAXone 2 GM/NS 100 ML 2 GM/100 ML BAG IVPB (04:43)
[2024-05-02] MEDS: AZITHROMYCIN 500 MG/NS 250 ML 500 MG/250 ML BAG 250 MG IVPB (05:12)
[2024-05-02 05:16] LABS: Basophils Percent Auto 0.3 % (0.2-1.2); Hematocrit 31.6 % (37.0-47.0); Hemoglobin 10.2 g/dL (12.0-15.0); Immature Granulocyte Absolute 0.03 K/mm3 (0.00-0.031); Immature Granulocyte Percent A 0.4 % (0-0.5); Lymphocytes Absolute Auto 1.42 K/mm3 (0.9-3.2); Lymphocytes Percent Auto 20.8 % (18.3-44.2); Mean Corpuscular HGB Conc 32.3 g/dl (32-36); Mean Corpuscular Hemoglobin 31.3 pg (26-34); Mean Corpuscular Volume 96.9 fl (80-100); Mean Platelet Volume 9.9 fl (7.4-10.4); Monocytes Absolute Auto 0.4 K/mm3 (0.1-0.6); Monocytes Percent Auto 6.5 % (2.6-8.5); Neutrophils Absolute Auto 4.9 K/mm3 (1.3-6.7); Platelet Count Result 181 k/mm3 (150-375); Red Blood Count 3.26 M/mm3 (4.2-5.4); Red Cell Distribution Width 12.6 % (11.5-14.5); White Blood Count 6.8 K/mm3 (4.5-10.0)
[2024-05-02 05:33] LABS: Anion Gap 10 mmol/L (4-12); Blood Urea Nitrogen 13 mg/dL (7-17); Calcium 8.7 mg/dL (8.4-10.2); Carbon Dioxide 25 mmol/L (22-30); Chloride 95 mmol/L (98-107); Estimated CRCL calculation 57 ml/min; Estimated Glomerular Filt Rate > 60; Glucose 104 mg/dL (65-110); Potassium 4.1 mmol/L (3.4-5.0); Sodium 130 mmol/L (137-145)
--- NOTE | 2024-05-02 07:06 | PM.IMPN ---
Progress Note: A&P Assessment and Plan (1) Nausea: Code(s): R11.0 - Nausea Status: Acute Assessment and Plan: This has improved with IV fluids, Zofran, and GI cocktail. She reports having two alcoholic beverages the night before which is unusual for her as she typically does not drink. She did have lactic acidosis on admission. Suspect this is from dehydration. -2 L NS -zofran PRN -tolerating a regular diet today -repeating lactic (2) Chest pain: Qualifiers: Chest pain type: unspecified Qualified Code(s): R07.9 - Chest pain, unspecified Code(s): R07.9 - Chest pain, unspecified Status: Acute Assessment and Plan: Complaints of chest pain while in the emergency room. EKG shows sinus rhythm with occasional supraventricular premature complexes with moderate ST depression. EKG compared with previous study from 02/13/2024 which appears similar Troponin negative x 3 The emergency room consulted cardiology----cancelled consult as she is not having chest pain concerning for ACS but rather musculoskeletal pain related to dry heaving. (3) COPD (chronic obstructive pulmonary disease): Code(s): J44.9 - Chronic obstructive pulmonary disease, unspecified Status: Acute Assessment and Plan: Stable. She is not on oxygen, lungs are clear, she denies cough, congestion, fever, chills. Chest x-ray shows underlying fibrotic changes. (4) Diastolic dysfunction: Code(s): I51.89 - Other ill-defined heart diseases Status: Acute Subjective Date/time seen: 05/02/24 07:06 Interval history: This is a very pleasant 72-year-old female with hypertension, COPD, aortic stenosis with diastolic dysfunction, CVA, and breast cancer who presented to the emergency department with complaints of nausea. While in the emergency room she developed chest discomfort per the previous providers notes. The patient states she is not having chest pain but rather feels it is a dull ache in her muscles likely from trying to make herself vomit. She states that Sunday evening she went to a [employer] and had two alcoholic beverages which is unusual for her. The following morning she had some nausea so she ate a peanut butter sandwich. She was unable to take her morning medications because the nausea persisted as the day went on. She felt like she needed to vomit but could not. She reports trying to make herself vomit but she was unsuccessful. She also reports a normal bowel movement in the morning and then two soft (not watery) stools in the afternoon. She denies blood or mucous in her stool. The remainder of the day she did not eat or drink. She then presented to the emergency room when her nausea did not resolve. She states the Zofran and GI cocktail she had helped with her nausea. This morning she is feeling well without complaints of recurrent nausea. She was given a regular diet and tolerated breakfast. Her blood pressure is slightly low compared to her baseline. She could be slightly dehydrated as she had poor intake yesterday and her labs reflect this. Will plan for a fluid bolus, blood pressure recheck, and likely discharge this afternoon. I cancelled the cardiology consult as she is not having chest pain concerning for acute coronary syndrome. Review of Systems Review of Systems: All systems reviewed & are unremarkable except as noted in HPI and below Exam Narrative: General: well appearing, appears stated age. HEENT: normocephalic, atraumatic. Mucous membranes moist. EOMI, PERRLA, bilateral sclera anicteric, no conjunctival injection. Neck supple without JVD, lymphadenopathy, or bruit. Respiratory: clear to auscultation bilaterally. No rales/rhonic/wheezes. Cardiovascular: Regular rate and rhythm, normal S1-S2 upon auscultation. No murmurs, rubs, or clicks. PMI is nondisplaced, capillary refill less than 3 second. Abdomen: Soft, round, no pulsatile masses, nondistended and nontender. No rebound,
[2024-05-02] MEDS: FLUTICASONE/UMECLIDIN/VILANTER 100-62.5-25 MCG ELLIPTA 1 PUFF INHALATION (07:51)
[2024-05-02] MEDS: SODIUM CHLORIDE 0.9% IV 1,000 ML 999 ML IV CONT (07:59)
[2024-05-02] MEDS: FLUoxetine HCL 10 MG CAPSULE PO (08:58)
[2024-05-02] MEDS: ASPIRIN 81 MG ENTERIC TABLET PO (08:58)
[2024-05-02] MEDS: ATORVASTATIN 20 MG TABLET PO (08:58)
[2024-05-02] MEDS: METOPROLOL SUCCINATE EXT REL 12.5 MG TABCR PO (08:58)
[2024-05-02 10:23] LABS: Lactic Acid Reflex 2.9 mmol/L (0.7-2.0)
[2024-05-02 13:00] LABS: Reflex Lactic Acid Yes or No Add Lactic
[2024-05-02 13:55] LABS: Lactic Acid 2.6 mmol/L (0.7-2.0)
--- NOTE | 2024-05-02 13:57 | PC.NURSE ---
Kary Sanchez [employer] RE[employer] notified of bp 90/44. Patient asymptomatic
[2024-05-02] MEDS: SODIUM CHLORIDE 0.9% IV 1,000 ML 50 ML IV CONT (16:16)
[2024-05-03] VITALS: PULSE 59
[2024-05-03 04:00] VITALS: PULSE 62
[2024-05-03 05:56] VITALS: BP 158/88; PULSE 60; RESP 18; TEMP 36.1; O2SAT 97
[2024-05-03 08:00] VITALS: PULSE 78
[2024-05-03] MEDS: LOSARTAN POTASSIUM 50 MG TABLET PO (08:08)
[2024-05-03] MEDS: ASPIRIN 81 MG ENTERIC TABLET PO (08:08)
[2024-05-03 08:09] VITALS: PULSE 72
[2024-05-03] MEDS: METOPROLOL SUCCINATE EXT REL 12.5 MG TABCR PO (08:09)
[2024-05-03] MEDS: FLUoxetine HCL 10 MG CAPSULE PO (08:09)
[2024-05-03] MEDS: FLUTICASONE/UMECLIDIN/VILANTER 100-62.5-25 MCG ELLIPTA 1 PUFF INHALATION (08:21)
--- NOTE | 2024-05-03 09:44 | PM.CNCAR ---
Assessment and Plan Assessment and plan (1) Aortic stenosis: Qualifiers: Cardiac valve disease etiology: etiology unspecified Qualified Code(s): I35.0 - Nonrheumatic aortic (valve) stenosis Code(s): I35.0 - Nonrheumatic aortic (valve) stenosis Status: Acute Plan atypical chest pain with negative enzymes and no dynamic EKG changes poissibly GI related resolved with antacid moderate to sever aortic stenosis with no evidence of CHF Plan F/U TTE as outpatient for aortic stenosis no further work up needed as inpatient History of Present Illness History of Present Illness Consult date/time: 05/03/24 09:44 Reason For Visit: Nausea, Hyponatremia Narrative: 73 Yrs old female presented with episode of nausea, dry heaves, aassociated with dizziness. She also complained of diffuse chest burning sensation that lasted for one hour on presentation. Her pain was moderate and improved with antacid and treatment of her [place]. she has no recurrent episodes since then. 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 COPD (chronic obstructive pulmonary disease) COVID-19 Diastolic dysfunction Echocardiogram in July 2018 showed normal LV function, EF 60 to 65%, grade 1 diastolic dysfunction. History of breast cancer in female Major depression in remission Mild aortic stenosis Valve area of 2 cm2 on echo in July 2018. Normal nuclear stress test (04/2021) Prediabetes Surgical History Surgical History History of ankle surgery History of arthroscopy of right shoulder History of basal cell carcinoma excision (12/2007) Left nasal ala. History of section History of colonoscopy (08/2007) Normal colonoscopy. Internal hemorrhoidal tissue. History of hammertoe correction (08/2002) History of partial mastectomy of left breast (02/2011) History of repair of hiatal hernia Family History Family History Mother Hypertension Social History Social History Social History: Surrogate medical decision maker: Liborio Gracia, spouse. Code status: Full code. Smoking packs per day: 0.1 Smoking cigarettes per day: 2.0 Years smoked: 10 Smoking pack-years: 1.00 Smoking status: Former smoker Tobacco type: cigarettes Second hand tobacco smoke exposure: No Smoking end date: 11/13/22 Alcohol intake: never Drinks per week: 8 Substance use: never Substance use type: does not use Do You Feel Safe in your Home?: Yes Lack of Transportation: No Lack of Food: Never True Current Housing: I Have Housing Concerned About Future Housing: No Difficulty Paying Gas/Electric Bills: No Difficulty Paying for Meds: No Currently Unemployed: No Education: Master's Degree or Higher Difficulty w/ Childcare or Family Care: No Additional living arrangements comments: Lives with spouse in [place]. Spiritual care concerns: No Meds Home Medications and Allergies Home Medications Medication Instructions Recorded Confirmed Type aspirin 81 mg tablet,delayed 81 mg PO DAILY 05/22/23 05/01/24 History release (Adult Aspirin Regimen) metoprolol succinate 25 mg 12.5 mg PO DAILY 08/30/23 05/01/24 History tablet,extended release 24 hr atorvastatin 20 mg tablet 20 mg PO DAILY #90 tabs 01/21/24 05/01/24 Rx fluoxetine 10 mg capsule (Prozac) 10 mg PO DAILY #90 caps 02/29/24 05/01/24 Rx fluticasone fur. 100 mcg-umeclid 1 inh inhalation DAILY #60 ea 03/31/24 05/01/24 Rx 62.5 mcg-vilant 25 mcg inhalat.powder (Trelegy Ellipt
--- NOTE | 2024-05-03 11:02 | PM.DS ---
DS: Admitting Diagnosis Discharge Date 05/03 Admitting Diagnosis nausea DS: Discharge Diagnosis Discharge Diagnosis (1) Nausea: Code(s): R11.0 - Nausea Status: Acute Assessment and Plan: This has improved with IV fluids, Zofran, and GI cocktail. She reports having two alcoholic beverages the night before which is unusual for her as she typically does not drink. She did have lactic acidosis on admission. Suspect this is from dehydration. -2 L NS -zofran PRN -tolerating a regular diet today -repeating lactic (2) Chest pain: Qualifiers: Chest pain type: unspecified Qualified Code(s): R07.9 - Chest pain, unspecified Code(s): R07.9 - Chest pain, unspecified Status: Acute Assessment and Plan: Complaints of chest pain while in the emergency room. EKG shows sinus rhythm with occasional supraventricular premature complexes with moderate ST depression. EKG compared with previous study from 02/13/2024 which appears similar Troponin negative x 3 The emergency room consulted cardiology----cancelled consult as she is not having chest pain concerning for ACS but rather musculoskeletal pain related to dry heaving. (3) Lung infiltrate: Code(s): R91.8 - Other nonspecific abnormal finding of lung field Status: Acute (4) COPD (chronic obstructive pulmonary disease): Code(s): J44.9 - Chronic obstructive pulmonary disease, unspecified Status: Acute Assessment and Plan: Stable. She is not on oxygen, lungs are clear, she denies cough, congestion, fever, chills. Chest x-ray shows underlying fibrotic changes. (5) Benign essential hypertension: Code(s): I10 - Essential (primary) hypertension Status: Acute (6) Diastolic dysfunction: Code(s): I51.89 - Other ill-defined heart diseases Status: Acute DS: Summary Hospital Course Reason for hospitalization: chest pain Hospital Course: This is a very pleasant 72-year-old female with hypertension, COPD, aortic stenosis with diastolic dysfunction, CVA, and breast cancer who presented to the emergency department with complaints of nausea. While in the emergency room she developed chest discomfort per the previous providers notes. The patient states she is not having chest pain but rather feels it is a dull ache in her muscles likely from trying to make herself vomit. She states that Sunday evening she went to a [employer] and had two alcoholic beverages which is unusual for her. The following morning she had some nausea so she ate a peanut butter sandwich. She was unable to take her morning medications because the nausea persisted as the day went on. She felt like she needed to vomit but could not. She reports trying to make herself vomit but she was unsuccessful. She also reports a normal bowel movement in the morning and then two soft (not watery) stools in the afternoon. She denies blood or mucous in her stool. The remainder of the day she did not eat or drink. She then presented to the emergency room when her nausea did not resolve. She states the Zofran and GI cocktail she had helped with her nausea. She was given a regular diet and tolerated breakfast. Her blood pressure is slightly low compared to her baseline. She could be slightly dehydrated as she had poor intake yesterday and her labs reflect this. She received a fluid bolus and maintenance fluids. Her blood pressures normalized, she tolerated a diet, and had no recurrence of nausea or chest discomfort. She was discharged home in stable condition. Time Spent with Patient Time attestation: Total time spent providing and/or coordinating discharge services: 73 Exam Narrative: General: well appearing, appears stated age. HEENT: normocephalic, atraumatic. Mucous membranes moist. EOMI, PERRLA, bilateral sclera anicteric, no conjunctival injection. Neck supple without JVD, lymphadenopathy, or bruit. Respiratory: clear to auscultation bilatera
== END 2024-05-03 11:50 | disposition home or self-care (01) ==
LOC: ANHED 20:55 → ANH2MED 21:32 → ANH3MED 05-05 13:57
PROVIDERS: Admitting Provider Internal Medicine; Emergency Provider Preventive Medicine Aerospace Medicine; PCP Internal Medicine; Visit Provider Nurse Practitioner Acute Care
DX: R07.9 Chest pain, unspecified (principal); R11.0 Nausea; R91.8 Other nonspecific abnormal finding of lung field; E87.1 Hypo-osmolality and hyponatremia; I11.9 Hypertensive heart disease without heart failure; I35.0 Nonrheumatic aortic (valve) stenosis; J44.9 Chronic obstructive pulmonary disease, unspecified; F32.5 Major depressive disorder, single episode, in full remission; R73.03 Prediabetes; Z85.3 Personal history of malignant neoplasm of breast; Z79.82 Long term (current) use of aspirin; Z87.891 Personal history of nicotine dependence; Z79.51 Long term (current) use of inhaled steroids; Z20.822 Contact with and (suspected) exposure to COVID-19; Z79.899 Other long term (current) drug therapy
CPT/HCPCS: 36415; 71045; 80048; 80053; 80307; 81001; 83605; 84484; 85025; 85610; 87040; 87637; 93005; 93306; 94640; 96361; 96365; 96367; 96374; 96375; 99285; A9270; G0378; J0456; J0696; J0780; J2405; J2550; J7030

== ENCOUNTER 2024-08-19 14:08 | Outpatient (CLI) | payer OTHER, SELFPAY ==
[2024-08-19 14:27] LABS: Basophils Absolute Auto 0.1 K/mm3 (0.0-0.1); Basophils Percent Auto 1.1 % (0.2-1.2); Eosinophils Absolute Auto 0.3 K/mm3 (0-0.3); Eosinophils Percent Auto 4.5 % (0-4.4); Hematocrit 34.6 % (37.0-47.0); Hemoglobin 11.3 g/dL (12.0-15.0); Immature Granulocyte Absolute 0.02 K/mm3 (0.00-0.031); Immature Granulocyte Percent A 0.3 % (0-0.5); Lymphocytes Absolute Auto 2.26 K/mm3 (0.9-3.2); Lymphocytes Percent Auto 30.7 % (18.3-44.2); Mean Corpuscular HGB Conc 32.7 g/dl (32-36); Mean Corpuscular Hemoglobin 31.4 pg (26-34); Mean Corpuscular Volume 96.1 fl (80-100); Mean Platelet Volume 9.5 fl (7.4-10.4); Monocytes Absolute Auto 0.7 K/mm3 (0.1-0.6); Monocytes Percent Auto 9.5 % (2.6-8.5); Neutrophils Percent Auto 53.9 % (45.5-73.1); Platelet Count Result 211 k/mm3 (150-375); Red Cell Distribution Width 12.6 % (11.5-14.5); White Blood Count 7.4 K/mm3 (4.5-10.0)
[2024-08-19 14:50] LABS: Alanine Aminotransferase 16 U/L (6-35); Albumin Level 4.4 g/dL (3.5-5.1); Alkaline Phosphatase 124 U/L (38-126); Anion Gap 6 mmol/L (4-12); Aspartate Amino Transferase 30 U/L (14-36); Bilirubin,Total 0.5 mg/dL (0.2-1.3); Blood Urea Nitrogen 24 mg/dL (7-17); Calcium 9.7 mg/dL (8.4-10.2); Carbon Dioxide 30 mmol/L (22-30); Chloride 101 mmol/L (98-107); Estimated Glomerular Filt Rate > 60; Glucose 102 mg/dL (65-110); Potassium 4.5 mmol/L (3.4-5.0); Sodium 137 mmol/L (137-145)
== END 2024-08-19 14:09 | disposition home or self-care (01) ==
LOC: ANHLAB 14:09
PROVIDERS: PCP Internal Medicine; Visit Provider Internal Medicine Cardiovascular Disease
DX: I35.0 Nonrheumatic aortic (valve) stenosis (principal); Z01.812 Encounter for preprocedural laboratory examination
CPT/HCPCS: 36415; 80053; 85025

== ENCOUNTER 2024-09-22 15:16 | Emergency (ER) | payer OTHER, SELFPAY ==
--- NOTE | ~2024-09-22 | XR_ITS ---
EXAMINATION: XR hip LT 2V w AP pelvis DATE: 09/22/2024 16:36 INDICATION: Severe left hip pain TECHNIQUE: Anteroposterior view of the pelvis and anteroposterior and frog-leg lateral views of the l eft hip were obtained. COMPARISON: None. FINDINGS: Alignment is normal. No fracture or suspected osteonecrosis. Minimal bilateral hip and sacroiliac ost eoarthritis. Surgical clip projects over the left hemipelvis. IMPRESSION: 1. Minimal bilateral hip and sacroiliac osteoarthritis. No acute osseous abnormality. Reviewed, dictated and finalized at location B. T MAINTENANCE MANAGER IMPRESSION: 1. Minimal bilateral hip and sacroiliac osteoarthritis. No acute osseous abnorm ality.
[2024-09-22 16:26] VITALS: BP 141/69; PULSE 75; RESP 16; TEMP 37.5; O2SAT 96
--- NOTE | 2024-09-22 17:33 | ED.LOWEXIN ---
HPI - Extremity Injury (Lower) General Chief Complaint: Extremity Injury, Lower Stated Complaint: Left Hip Pain Time Seen by Provider: 09/22/24 17:22 Source: patient and RN notes reviewed Mode of arrival: ambulatory Limitations: no limitations History of Present Illness HPI Narrative: Patient presents today complaining of left posterior hip pain times 3-4 days. Denies trauma or injury. States it is severely painful to weightbear. Currently rates her pain 10/10 and has been trying Tylenol at home without relief. Denies numbness or tingling in the leg or foot. Related Data Home Medications ?Medication ?Instructions ?Recorded ?Confirmed ?Last Taken ?Type aspirin 81 mg tablet,delayed 81 mg PO DAILY 05/22/23 09/22/24 Unknown History release (Adult Aspirin Regimen) metoprolol succinate 25 mg 12.5 mg PO DAILY 08/30/23 09/22/24 Unknown History tablet,extended release 24 hr Allergies Allergy/AdvReac Type Severity Reaction Status Date / Time amoxicillin AdvReac Unknown Abdominal Verified 09/22/24 16:20 pain erythromycin base AdvReac Unknown Gastrointestinal Verified 09/22/24 16:20 Upset morphine AdvReac Unknown Gastrointestinal Verified 09/22/24 16:20 Upset Review of Systems Review of Systems: CONSTITUTIONAL: Denies body aches, fever, chills, or sweats. EYES: Denies visual changes, redness, or discharge. ENT: Denies rhinorrhea, congestion, sore throat, or otalgia. CARDIOVASCULAR: Denies chest pain, palpitations, or edema. RESPIRATORY: Denies cough or dyspnea. GASTROINTESTINAL: Denies abdominal pain, nausea, vomiting, or diarrhea. GENITOURINARY: Denies dysuria or hematuria. SKIN: Denies rash, itching, or wounds. MUSCULOSKELETAL: Denies back pain. + left hip pain NEUROLOGIC: Denies headache, numbness, tingling, or weakness. PSYCH: Denies depression or anxiety. [facility] Past Medical History Medical History Right-sided extracranial carotid artery stenosis COPD (chronic obstructive pulmonary disease) Prediabetes Normal nuclear stress test (04/2021) Mild aortic stenosis Valve area of 2 cm2 on echo in July 2018. Cancer of left breast Invasive ductal carcinoma, ER/CA positive. Benign essential hypertension COVID-19 Diastolic dysfunction Echocardiogram in July 2018 showed normal LV function, EF 60 to 65%, grade 1 diastolic dysfunction. History of breast cancer in female Major depression in remission Surgical History Surgical History History of arthroscopy of right shoulder History of repair of hiatal hernia History of section History of partial mastectomy of left breast (02/2011) History of basal cell carcinoma excision (12/2007) Left nasal ala. History of colonoscopy (08/2007) Normal colonoscopy. Internal hemorrhoidal tissue. History of hammertoe correction (08/2002) History of ankle surgery Family History Family History Mother Hypertension Social History Social History Social History: Surrogate medical decision maker: Liborio Gracia, spouse. Code status: Full code. Smoking packs per day: 0.1 Smoking cigarettes per day: 2.0 Years smoked: 10 Smoking pack-years: 1.00 Smoking status: Former smoker Tobacco type: cigarettes Second hand tobacco smoke exposure: No Smoking end date: 11/13/22 Alcohol intake: never Drinks per week: 8 Alcohol use details: Occasional Substance use: never Substance use type: does not use Do You Feel Safe in your Home?: Yes Lack of Transportation: No Lack of Food: Never True Current Housing: I Have Housing Concerned About Future Housing: No Difficulty Paying Gas/Electric Bills: No Difficulty Paying for Meds: No Currently Unemployed: No Education: Master's Degree or Higher Difficulty w/ Childcare or Family Care: No Additional living arrangements comments: Lives with spouse in [place]. Spiritual care concerns: No Comments At time of signature, I have reviewed and agree with nursing past medical, surgical, social and family history unless otherwise noted. Please see nursing chart for further information. There is no relevant family history pertinent to the presenting complaint Exam Narrative: GENERAL: Well-appearing, well-nourished, and in no acute distress. HEAD: Normocephalic, atraumatic. EYES: EOMI. No redness or drainage. Conjunctivae normal. ENT: Mucous membranes pink and moist. NECK: Normal AROM. CHEST: No respiratory distress. MUSCULOSKELETAL: No bony tenderness of the spine. + tenderness to palpation of the left SI joint. Painful for patient to go from standing to sitting position and back. Distal sensation intact. Saddle sensation intact. Capillary refill. EXTREMITIES: Normal range of motion. No edema. SKIN: Warm, dry, no rash. Capillary refill normal. Normal skin turgor. NEURO: No focal deficits. Alert and oriented x3. Gait steady. PSYCH: Normal affect. No signs of depression or anxiety. Course Course Level of Care: Express Care Visit Vital Signs Vital signs: Vital Signs Temperature 99.5 F 09/22/24 16:26 Pulse Rate 75 09/22/24 16:26 Respiratory Rate 16 09/22/24 16:26 Blood Pressure 141/69 H 09/22/24 16:26 Pulse Oximetry 96 09/22/24 16:26 Oxygen Delivery Room Air 09/22/24 16:26 Temperature 99.5 F 09/22/24 16:26 Pulse Rate 75 09/22/24 16:26 Respiratory Rate 16 09/22/24 16:26 Blood Pressure 141/69 H 09/22/24 16:26 Pulse Oximetry 96 09/22/24 16:26 Oxygen Delivery Room Air 09/22/24 16:26 Reviewed MDM - Extremity Injury (Lower) MDM Narrative Medical decision making narrative: Left hip x-ray is negative. Patient's exam and history is consistent with sciatica. Patient will be treated with a short course of prednisone. Discussed dstw-zce-alpviuz treatment as well such as Tylenol, topical lidocaine patches, and heat. Patient agrees with plan. Anticipatory guidance given. Differential Diagnosis Differential diagnosis: Likely fracture of hip and other (Bursitis, tendonitis, sciatica) Imaging Data Radiologist's impression: ITS Impressions Hip/Pelvis X-Ray 09/22/24 16:38 IMPRESSION: 1. Minimal bilateral hip and sacroiliac osteoarthritis. No acute osseous abnormality. Critical Care Time Critical Care Time Critical Care Time: No Discharge Plan Discharge Clinical Impression: Left sided sciatica Patient Disposition: Home, Self-Care Condition: Stable Instructions: Sciatica (ED) Additional Instructions: Your symptoms are likely due to sciatica. Please take the prednisone as prescribed. Continue Tylenol at home for pain if needed. Consider topical lidocaine patches. Follow-up with your PCP in 5-7 days if symptoms are not improving. Your blood pressure was elevated above 120/80 today at Urgent Care. This puts you above the threshold for follow up. Please schedule a followup visit with your personal physician as soon as possible, for further evaluation and treatment. Even blood pressure exceeding 120/80 may indicate pre-hypertension. Patient Language: Ghanaian Prescriptions: New prednisone 20 mg tablet 40 mg PO DAILY 5 Days Qty: 10 0RF No Action metoprolol succinate 25 mg tablet extended release 24 hr 12.5 mg PO DAILY aspirin [Adult Aspirin Regimen] 81 mg tablet,delayed release (DR/EC) 81 mg PO DAILY losartan 50 mg tablet 50 mg PO DAILY Qty: 90 1RF tretinoin 0.025 % cream See Rx Instructions .ROUTE .COMPLEX Qty: 45 3RF Dose Instruction: APPLY TO THE AFFECTED AREA(S) ONCE DAILY AT BEDTIME Rx Instructions: APPLY TO THE AFFECTED AREA(S) ONCE DAILY AT BEDTIME fluoxetine 20 mg tablet 20 mg PO DAILY Qty: 90 1RF atorvastatin 20 mg tablet 20 mg PO DAILY Qty: 90 1RF Follow-up/Referrals: Thierry Mora DO [Primary Care Provider] - Time of Disposition: 17:41
== END 2024-09-22 17:47 | disposition home or self-care (01) ==
PROVIDERS: Emergency Provider Nurse Practitioner; PCP Internal Medicine
DX: M54.32 Sciatica, left side (principal); Z87.891 Personal history of nicotine dependence; J44.9 Chronic obstructive pulmonary disease, unspecified; I10 Essential (primary) hypertension; I65.21 Occlusion and stenosis of right carotid artery; I35.0 Nonrheumatic aortic (valve) stenosis; Z85.3 Personal history of malignant neoplasm of breast; Z90.12 Acquired absence of left breast and nipple
CPT/HCPCS: 73502; 99213; G0463

== ENCOUNTER 2024-10-06 13:39 | Outpatient (CLI) | payer OTHER, SELFPAY ==
--- NOTE | ~2024-10-06 | MR_ITS ---
EXAMINATION: MR lumbar spine wo con DATE: 10/06/2024 14:04 INDICATION: Low back pain. Lumbar radiculopathy. TECHNIQUE: Magnetic resonance imaging (MRI) of the lumbar spine was performed without intravenous con trast. Sequences included sagittal T2-weighted FSE, sagittal T2-weighted FS FSE, sagittal T1-weighted FSE, and axial T2-weighted FSE. COMPARISON: Pelvis radiograph 09/22/2024 FINDINGS: Alignment is normal. Vertebral body heights are normal. There is an insufficiency fracture of left sacral ala with low signal fracture line and edema-like marrow signal intensity. There is mil dly decreased disc height at L1-L2, L2-L3, L4-L5, and L5-S1. The distal spinal cord signal intensity is normal. The conus medullaris is at T12-L1. The following disc levels are specifically discussed: L1-L2: The disc is bulging. There is moderate right and mild left facet joint osteoarthritis. There i s mild bilateral neural foraminal stenosis. There is mild central canal stenosis. L2-L3: The disc is bulging and has an annular fissure. There is moderate right and mild left facet duran int osteoarthritis. There is mild bilateral neural foraminal stenosis. There is mild central canal st enosis. L3-L4: The disc is bulging. There is severe bilateral facet joint osteoarthritis. There is mild bilat eral neural foraminal stenosis. There is mild central canal stenosis. L4-L5: The disc is bulging. There is severe bilateral facet joint osteoarthritis. There is mild bilat eral neural foraminal stenosis. There is mild central canal stenosis. L5-S1: The disc is bulging. There is severe bilateral facet joint osteoarthritis. There is mild bilat eral neural foraminal stenosis. There is mild central canal stenosis. IMPRESSION: 1. Acute/subacute insufficiency fracture of left sacral ala. 2. Mild lumbar spondylosis. Reviewed, dictated and finalized at location A. OLITH OPERATOR
== END 2024-10-06 13:40 | disposition home or self-care (01) ==
LOC: GOSHIMG 13:39
PROVIDERS: PCP Internal Medicine; Visit Provider Nurse Practitioner
DX: M47.26 Other spondylosis with radiculopathy, lumbar region (principal)
CPT/HCPCS: 72148

== ENCOUNTER 2024-11-21 10:03 | Outpatient (CLI) | payer OTHER, SELFPAY | END 2024-11-21 10:04 | disposition home or self-care (01) | LOC: ANHIMG 10:06 | PROVIDERS: PCP Internal Medicine; Visit Provider Internal Medicine | DX: Z12.31 Encounter for screening mammogram for malignant neoplasm of breast (principal) | CPT/HCPCS: 77063; 77067 ==

== ENCOUNTER 2025-03-11 10:14 | Outpatient (CLI) | payer OTHER, SELFPAY ==
--- NOTE | ~2025-03-11 | DEXA_ITS ---
Bone Density Report Name: VERONIKA ANTHONY Age: 74 Sex: Female Ethnicity: White Date of : 1950 Indication: postmenopausal; screening for osteoporosis; height loss; prior fracture; Referring Provider: NISHANT BANSAL Study: Bone densitometry was performed. Exam Date: March 11, 2025 Accession number: [id number] Bone Density: Region BMD T-score Z-score Classification AP Spine(L1-L4) 0.874 -1.6 0.9 Osteopenia Femoral Neck (Left) 0.460 -3.5 -1.4 Osteoporosis Total Hip (Left) 0.715 -1.9 0.0 Osteopenia Femoral Neck (Right) 0.488 -3.3 -1.1 Osteoporosis Total Hip (Right) 0.718 -1.8 0.0 Osteopenia Total Hip Mean 0.717 -1.9 0.0 Osteopenia World Health Organization criteria for BMD impression classify patients as: Normal (T-score at or above -1.0), Osteopenia (T-score between -1.0 and -2.5), or Osteoporosis (T-score at or below -2.5). 10-year Fracture Risk: FRAX not reported because: Some T-score for Spine Total or Hip Total or Femoral Neck at or below -2.5 Prior hip or vertebral fracture Clinical Information Provided by Patient: Have had a previous hip or vertebral fracture Has had a low trauma fracture Has used the following medications: Vitamin D Patient maximum height was 64.0 Menopause Age: 54 No regular weight bearing exercise Drinks caffeinated beverages Onset of menses at age 12 Number of children 1 Impression: The patient has established osteoporosis, based on the Left Femoral Neck T-score and the existence of a prior fracture. The patient has risk factors, including: previous fracture. Discussion: HIGH RISK OF FRACTURE. BONE DENSITY IS UNDESIRABLY LOW AT ONE OR MORE SKELETAL SITES, CONSISTENT WITH POSTMENOPAUSAL OSTEOPOROSIS. This patient's lowest T-score, in a patient who has previously fractured, meets the World Health Organization's (WHO) criteria for severe osteoporosis. In untreated patients, the risk of osteoporotic fracture increases approximately two-fold for each 1.0 SD decrease in T-score. Low bone density is not the only risk factor for fracture; also consider factors such as patient's age, frailty or poor health, risk of falling, risk of injury, previous osteoporotic fracture, family history of osteoporosis, cigarette smoking, low body weight, etc. Not everyone with low bone mineral density has osteoporosis; osteomalacia and other metabolic bone disorders should also be considered. Patients who have osteoporosis should be evaluated for specific diseases and conditions (secondary causes) that may cause or contribute to bone loss. The [place] Association of Clinical Endocrinologists (AACE) and National Osteoporosis Foundation (NOF) recommend pharmacologic intervention for all postmenopausal women with a previous hip or vertebral fracture and a T-score in this range. The patient should follow a healthful lifestyle (good nutrition with adequate calcium and vitamin D, and appropriate weight-bearing exercise). Follow-Up: Consider a repeat BMD and Vertebral Fracture Assessment (VFA) exam in 2 years or sooner if medically necessary, to reassess this patient's status. Reported by: BALTAZAR on 03/11/2025 10:51:00 AM. Reviewed, dictated and finalized at location A.
--- OUTSIDE RECORDS SUMMARY | 2025-03-11 11:34 | XMS_ITS | Referral Summary ---
Author Organization [facility] Address [address] [place] [id number] Care Team Providers Care Sanitarian Inspector Name Role Phone Thierry Mora DO Primary Care Provider [phone] Encounters Date Type Department Care Team Description 02/11/2025 Telephone [facility] Cardiology [address] [place] [address] [address] [place] [phone] Juan Cooney MD 01/21/2025 Orders Only [facility] Cardiology [address] [place] [address] [address] [place] [phone] Garrett Ley MD 01/21/2025 10:45 AM CDT Office Visit [facility] Cardiology [address] [place] [address] [address] [place] [phone] Juan Cooney MD Nonrheumatic aortic valve stenosis (Primary Dx); Essential hypertension; H/O: CVA (cerebrovascular accident) from Last 3 Months Allergies Active Allergy Reactions Criticality Noted Date Comments Amoxicillin-Pot Clavulanate Other (See comments) Low 07/21/2020 Reaction: Cramps Erythromycin Other (See comments) Low 07/21/2020 Reaction: Cramps Medications acetaminophen 500 mg capsule Take 2 capsules (1,000 mg total) by mouth every 6 (six) hours 30 tablet 07/23/2020 Active tretinoin (RETIN-A) 0.025 % cream 05/29/2020 Active azelastine-flut icasone 137-50 mcg/spray spray,non-aeros ol 11/02/2016 Active atorvastatin (LIPITOR) 20 mg tablet Take 1 tablet (20 mg total) by mouth daily 01/12/2023 Active losartan (COZAAR) 50 mg tablet Take 1 tablet (50 mg total) by mouth daily 11/30/2022 Active aspirin 81 mg enteric coated tablet Take 1 tablet (81 mg total) by mouth daily 12/15/2022 Active Trelegy Ellipta 100-62.5-25 mcg inhaler Inhale 1 puff daily 03/31/2024 Active FLUoxetine 10 mg capsule Take 2 tablet/capsul e (20 mg total) by mouth daily 02/29/2024 Active amLODIPine (NORVASC) 5 mg tablet Take 1 tablet (5 mg total) by mouth daily 30 tablet 11 01/21/2025 01/22/20 26 Active Active Problems Problem Noted Date Diagnosed Date Stenosis of right carotid artery 10/25/2023 Assessment & Plan (12/05/2024 10:07 AM CDT): Continues to have non progressive carotid stenosis 2 bilateral internal carotid arteries. Current duplex shows patent bilateral internal carotid arteries and patient remains asymptomatic of any new stroke symptoms since her previous office visit. Discussed with Dr. Killian. At this time patient can follow-up on an as-needed basis. Assessment & Plan (11/02/2023 2:13 PM BAKING POWDER MIXER): No evidence of stenosis on her carotid duplex. CTA from [facility] with 50% stenosis of the right common carotid artery. Discussed findings with the patient and her , ultimately this would not lead to her bihemispheric strokes. I suspect this was due to something cardiac in origin. Continue risk factor modification with ASA statin therapy and good blood pressure control. Repeat carotid duplex in 1 year. Assessment & Plan (10/25/2023 2:19 PM BAKING POWDER MIXER): Previous CVA in November of 2022 with workup showing stenosis to the right internal carotid artery per CTA. No new symptoms of stroke since last year. Plan: Continue Plavix aspirin and Lipitor. Obtain carotid duplex and follow-up in the next couple of weeks Palpitations 06/14/2023 H/O: CVA (cerebrovascular accident) 02/23/2023 Nonrheumatic aortic valve stenosis 02/23/2023 Shortness of breath 02/23/2023 PSVT (paroxysmal supraventricular tachycardia) 0 02/23/2023 HTN (hypertension), benign 02/23/2023 Assessment & Plan (11/02/2023 2:13 PM BAKING POWDER MIXER): Stable continue losartan 50 mg. Mixed hyperlipidemia 02/23/2023 Assessment & Plan (11/02/2023 2:13 PM BAKING POWDER MIXER): Stable continue Lipitor 20 mg. Open fracture of distal end of right tibia 07/18 Overview (07/18/2020): Added automatically from request for surgery [id number] Closed fracture of part of fibula 07/18/2020 Overview (07/18/2020): Added automatically from request for surgery [id number] Closed fracture of part of tibia 07/18/2020 Overview (07/20/2020): Added automatically from request for surgery [id number] Pain in wrist 01/28/2015 Breast cancer, female 04/17/2011 Immunizations Immunization Administration Dates Next Due Influenza, Quadrivalent, Hig h Dose, Preservative Free, Intrr 07/13/2020 Influenza, Unspecified 06/24/2020,2016,05/04/2016,2015,04/12/2015,10/14/2014,04/08/2014,0 01/07/2014,09/11/2013 Social History Tobacco Use Types Packs/Day Years Used Date Smoking Tobacco: Former Cigarettes Smokeless Tobacco: Never Tobacco Cessation:Counseling Given: Not Answered Alcohol Use Standard Drinks/Week Comments Yes 15 (1 standard drink = 0.6 oz pu re alcohol) AUDIT-C Answer Date Recorded Q1: How often do you have a drink containing alc ohol? 2-4 times a month 08/25/2024 Q2: How many drinks containi ng alcohol do you have on a typical day when you are drinking? 1 or 2 08/25/2024 Q3: How often do you have si x or more drinks on one occasion? Never 08/25/2024 Personal Safety Answer Date Recorded Have you ever been in or are you currently in a harmful physical or emotional relationship or is someone making you feel afraid or unsafe? Denies 08/25/2024 Comments No Sex and Gender Information Value Date Recorded Sex Assigned at Not on file Legal Sex Female 11:28 AM BAKING POWDER MIXER Gender Identity Not on file Sexual Orientation Not on file Last Filed Vital Signs Vital Sign Reading Time Taken Comments Blood Pressure 112/76 01/21/2025 10:51 AM CDT Pulse 73 01/21/2025 10:51 AM CDT Temperature 36.4 C (97.6 F) 08/25/2024 9:45 AM BAKING POWDER MIXER Respiratory Rate 18 10/16/2024 2:24 PM BAKING POWDER MIXER Oxygen Saturation 96% 01/21/2025 10:51 AM CDT Inhaled Oxygen Concentration - - Weight 56.7 kg (125 lb) 01/21/2025 10:51 AM CDT Height 162.6 cm (5' 4) 01/21/2025 10:51 AM CDT Body Mass Index 21.46 01/21/2025 10:51 AM CDT Plan of Treatment Not on file Medical Devices Implanted Type Area Search Engine Optimization Analyst Device Identifier Shelf Expiration Date Model / Serial / Lot Synthes 204.838 3.5mm 6mm 38mm 2.5mm Self Tap Small Hexagonal Socket Low Profile - S0 - [id number] Implanted:Qty: 1 on 07/21/2020 by Sasha Woods MD at [facility] Screw Right: Tibia Synthes I 204.838 / 0 / Synthes 212.105 3.5mm 2.9mm 18mm Self Tap Lock Stardrive Conical Head T15 Full - S0 - [id number] Implanted:Qty: 1 on 07/21/2020 by Sasha Woods MD at [facility] Screw Right: Tibia Synthes I 212.105 / 0 / Synthes 212.116 3.5mm 2.9mm 38mm Self Tap Lock Stardrive Conical Head T15 Full - S0 - [id number] Implanted:Qty: 1 on 07/21/2020 by Sasha Woods MD at [facility] Screw Right: Tibia Synthes I 212.116 / 0 / Synthes 212.118 3.5mm 2.9mm 42mm Self Tap Lock Stardrive Conical Head Full Thread - S0 - [id number] Implanted:Qty: 1 on 07/21/2020 by Sasha Woods MD at [facility] Screw Right: Tibia Synthes I 212.118 / 0 / Synthes 212.104 3.5mm 2.9mm 16mm Self Tap Lock Stardrive Conical Head T15 Full - S0 - [id number] Implanted:Qty: 1 on 07/21/2020 by Sasha Woods MD at [facility] Screw Right: Tibia Synthes I 212.104 / 0 / Synthes 204.822 3.5mm 6mm 22mm 2.5mm Self Tap Small Hexagonal Socket Low Profile - S0 - [id number] Implanted:Qty: 2 on 07/21/2020 by Sasha Woods MD at [facility] Screw Right: Tibia Synthes I 204.822 / 0 / Synthes 204.824 3.5mm 6mm 24mm 2.5mm Self Tap Small Hexagonal Socket Low Profile - S0 - [id number] Implanted:Qty: 1 on 07/21/2020 by Sasha Woods MD at [facility] Screw Right: Tibia Synthes I 204.824 / 0 / Synthes 204.750 3.5mm 6mm 150mm 2.5mm Self Tap Low Profile Small Hexagonal Socket - S0 - [id number] Implanted:Qty: 1 on 07/21/2020 by Sasha Woods MD at [facility] Screw Right: Tibia Synthes I 204.750 / 0 / Synthes 02.112.518 Lcp Combi 161mm 8 Hole Low Profile Round Edge Tibial Right Distal - [id number] Implanted:Qty: 1 on 07/21/2020 by Sasha Woods MD at [facility] Right: Tibia Synthes I 02.112.518 / / Procedures Procedure Name Priority Date/Time Associated Diagnosis Comments POCT LIPID PANEL Routine 01/21/2025 10:4 4 AM CDT Nonrheumatic aortic valve stenosis ELECTROCARDIOGRAM REPORT Routine 01/21/2025 Nonrheumatic aortic valve stenosis H/O: CVA (cerebrovascular accident) from Last 3 Months Results * POCT lipid panel (01/21/2025 10:44 AM CDT) Cholesterol, POC 137 <200 MG/DL HDL, POC 82 >=40 mg/dL Triglycerides, POC 71 <=149 mg/dL LDL Cholesterol POC 41 <=129 mg/dL Chol/HDL Ratio, POC 0.5 NONE Non-HDL Cholesterol, POC 56 NONE mg/dL Cholesterol Total, POC 137 30 - 199 mg/dL Capillary blood 01/21/2025 1 0:44 AM CDT us Juan Cooney MD POINT OF CARE TEST ORDERABLES Fi nal Result * Electrocardiogram Report (01/21/2025) 01/21/2025 us Juan Cooney MD ECG ORDERABLES Edited Result - Final from Last 3 Months Insurance [place] [id number] [place] [id number] [facility] [id number] Advance Directives For more information, please contact: [phone] * Full Code (Latest Code Status on File) Date Activated Date Inactivated Comments 07/18/2020 2:32 PM 07/23/2020 6:57 PM Care Teams Sanitarian Inspector Relationship Specialty Start Date End Date Thierry Mora DO PCP - General Internal Medicine 06/14/23
--- OUTSIDE RECORDS SUMMARY | 2025-03-11 11:34 | XMS_ITS | Clinical Summary ---
Author Organization [facility] Address [address] [place] [address] Care Team Providers Care Government Sales Manager Name Role Phone Thierry Mora DO Primary Care Provider +1- [phone] Allergies Active Allergy Reactions Criticality Noted Date [...] basis. Assessment & Plan (11/02/2023 2:13 PM STRIKE WARFARE/MISSILE SYSTEMS OFFICER): No evidence of stenosis on her carotid duplex. CTA from [place] with 50% stenosis of the right common carotid artery. Discussed findings with the patient and her , ultimately this would not lead to her bihemispheric strokes. I suspect this was due to something cardiac in origin. Continue risk factor modification with ASA statin therapy and good blood pressure control. Repeat carotid duplex in 1 year. Assessment & Plan (10/25/2023 2:19 PM STRIKE WARFARE/MISSILE SYSTEMS OFFICER): Previous CVA in November of 2022 with [...] 02/23/2023 Assessment & Plan (11/02/2023 2:13 PM STRIKE WARFARE/MISSILE SYSTEMS OFFICER): Stable continue losartan 50 mg. Mixed hyperlipidemia 02/23/2023 Assessment & Plan (11/02/2023 2:13 PM STRIKE WARFARE/MISSILE SYSTEMS OFFICER): Stable continue Lipitor 20 mg. Open fracture of distal end of right tibia 07/18 Overview (07/18/2020): Added automatically from request for surgery [id number] Closed fracture of part of fibula 07/18/2020 Overview (07/18/2020): Added automatically from request for surgery [id number] Closed fracture of part of tibia 07/18/2020 Overview (07/20/2020): Added automatically from request for surgery [id number] Pain in wrist 01/28/2015 Breast cancer, female 04/17/2011 Encounters Date Type Department Care Team Description 02/11/2025 Telephone [facility] Medical [facility] Cardiology [address] [place] [address] Juan Cooney MD 01/21/2025 10:45 AM CDT Office Visit [facility] Cardiology [address] [place] [address] Juan Cooney MD Nonrheumatic aortic valve stenosis (Primary Dx); Essential hypertension; H/O: CVA (cerebrovascular accident) 01/21/2025 Orders Only [facility] Cardiology [address] [place] [address] Garrett Ley MD from Last 3 Months Immunizations Immunization Administration Dates Next Due Influenza, Quadrivalent, Hig h Dose, Preservative Free, Intrr 07/13/2020 Influenza, Unspecified 06/24/2020,2016,05/04/2016,2015,04/12/2015,10/14/2014,04/08/2014,0 01/07/2014,09/11/2013 Surgical History Surgery Date Site/Laterality Comments EXTERNAL FIXATION TIBIAL FRACTURE 07/18/2020 Right SHOULDER ARTHROSCOPY 09/24/1994 - 09/23/1995 Right MASTECTOMY PARTIAL / LUMPECTOMY 09/24/2010 - 09/23/2011 Left WRIST SURGERY 09/24/2016 - 09/23/2017 Right HIATAL HERNIA REPAIR 09/24/1995 - 09/23/1996 Medical History Medical History Date Comments Hypertension Breast cancer (HCC) 2010 s/p partial mastectomy, radiation PONV (postoperative nausea and vomiting) Nonrheumatic aortic (valve) stenosis COPD (chronic obstructive pu lmonary disease) ([facility]) Family History Medical History Relation Name Comments Arthritis Mother Family history of arthritis - (Added by TW Conv) Hypertension Mother Family history of hypertension - (Added by TW Conv) Anesthesia problems Neg Hx Relation Name Status Comments Mother Social History Tobacco Use Types Packs/Day Years [...] on file Legal Sex Female 11:28 AM STRIKE WARFARE/MISSILE SYSTEMS OFFICER Gender Identity Not on file Sexual Orientation Not on file Obstetrics History Last Filed Vital Signs Vital Sign Reading Time Taken Comments Blood Pressure 112/76 01/21/2025 10:51 AM CDT Pulse 73 01/21/2025 10:51 AM CDT Temperature 36.4 C (97.6 F) 08/25/2024 9:45 AM STRIKE WARFARE/MISSILE SYSTEMS OFFICER Respiratory Rate 18 10/16/2024 2:24 PM STRIKE WARFARE/MISSILE SYSTEMS OFFICER Oxygen Saturation 96% 01/21/2025 10:51 AM CDT Inhaled Oxygen Concentration - - Weight 56.7 kg (125 lb) 01/21/2025 10:51 AM CDT Height 162.6 cm (5' 4) 01/21/2025 10:51 AM CDT Body Mass Index 21.46 01/21/2025 10:51 AM CDT Plan of Treatment Health Maintenance Due Date Last Done Comments Colon Cancer Screening-Colonoscopy 1950 Depression Screening 1950 Hepatitis C Screening 1950 Osteoporosis Screening-Bone Density Scan 1950 DTaP/Tdap/Td Vaccine (1 - Tdap) 1960 Hepatitis B Screening 1967 Pneumococcal vaccine 65+ (1 of 1 - PCV) 1999 Zoster Vaccine (1 of 2) 1999 Well Visit 65+ 2014 Influenza Vaccine (Season Ended) 2025 07/13/2020, 06/24/2020, 11/02/2016, Additional history exists Fall Risk Assessment 08/25/2025 08/25/2024 Medical Devices Implanted Type Area Lubricating Engineer Device Identifier Shelf Expiration Date Model / Serial / Lot Synthes 204.838 3.5mm 6mm 38mm 2.5mm Self Tap Small Hexagonal Socket Low Profile - S0 - [id number] Implanted:Qty: 1 on 07/21/2020 by Sasha Woods MD at [facility] Screw Right: Tibia Synthes I 204.838 / 0 / Synthes 212.105 3.5mm 2.9mm 18mm Self Tap Lock Stardrive Conical Head T15 Full - S0 - [id number] Implanted:Qty: 1 on 07/21/2020 by Sasha Woods MD at [facility] Screw Right: Tibia Synthes I 212.105 / 0 / Synthes 212.116 3.5mm 2.9mm 38mm Self Tap Lock Stardrive Conical Head T15 Full - S0 - [id number] Implanted:Qty: 1 on 07/21/2020 by Sasha Woods MD at [facility] Screw Right: Tibia Synthes I 212.116 / 0 / Synthes 212.118 3.5mm 2.9mm 42mm Self Tap Lock Stardrive Conical Head Full Thread - S0 - [id number] Implanted:Qty: 1 on 07/21/2020 by Sasha Woods MD at [facility] Screw Right: Tibia Synthes I 212.118 / 0 / Synthes 212.104 3.5mm 2.9mm 16mm Self Tap Lock Stardrive Conical Head T15 Full - S0 - [id number] Implanted:Qty: 1 on 07/21/2020 by Sasha Woods MD at [facility] Screw Right: Tibia Synthes I 212.104 / 0 / Synthes 204.822 3.5mm 6mm 22mm 2.5mm Self Tap Small Hexagonal Socket Low Profile - S0 - [id number] Implanted:Qty: 2 on 07/21/2020 by Sasha Woods MD at [facility] Screw Right: Tibia Synthes I 204.822 / 0 / Synthes 204.824 3.5mm 6mm 24mm 2.5mm Self Tap Small Hexagonal Socket Low Profile - S0 - [id number] Implanted:Qty: 1 on 07/21/2020 by Sasha Woods MD at [facility] Screw Right: Tibia Synthes I 204.824 / 0 / Synthes 204.750 3.5mm 6mm 150mm 2.5mm Self Tap Low Profile Small Hexagonal Socket - S0 - [id number] Implanted:Qty: 1 on 07/21/2020 by Sasha Woods MD at [facility] Screw Right: Tibia Synthes I 204.750 / 0 / Synthes 02.112.518 Lcp Combi 161mm 8 Hole Low Profile Round Edge Tibial Right Distal - [id number] Implanted:Qty: 1 on 07/21/2020 by Sasha Woods MD at [facility] Right: Tibia Synthes I 02.112.518 / / [...] - Final from Last 3 Months Insurance [employer] [id number] [employer] [id number] [employer] [id number] Member Subscriber Plan / Payer (Ef fective 2021-Present) Name:Lorna Gracia Member ID:[id number] Relation to Subscriber:Self Name:Lorna Gracia Subscriber ID:[id number] Payer ID:[id number] Type:[employer] HMO/PPO Address: [facility] [address] [id number] Advance Directives For more information, please contact: [phone] * Full Code (Latest Code Status on File) Date Activated Date Inactivated Comments 07/18/2020 2:32 PM 07/23/2020 6:57 PM Care Teams Government Sales Manager Relationship Specialty Start Date End Date Thierry Mora DO PCP - General Internal Medicine 06/14/23
--- OUTSIDE RECORDS SUMMARY | 2025-03-11 11:34 | XMS_ITS | Clinical Summary ---
Author Organization [facility] Address [address] [place] [address] Care Team Providers Care Granite Sandblaster Apprentice Name Role Phone Unavailable Primary Care Provider Unavailabl e Source Comments [facility],non-[facility] Affiliates and Associated Physician Practices is amultiple site organization consisting of ambulatory clinics and hospital sitesin [place], [place], [place] and [place]. This disclosure is being madepursuant to the Care Everywhere program and may not contain all information available regarding this patient. Last updated 18.[facility] Social History Tobacco Use Types Packs/Day Years Used Date Smoking Tobacco: Never Assessed Comments Unknown Sex and Gender Information Value Date Recorded Sex Assigned at Not on file Legal Sex Female 12:36 PM ACCOUNTS PAYABLE PROFESSIONAL Gender Identity Not on file Sexual Orientation Not on file Plan of Treatment Health Maintenance Due Date Last Done Comments BONE DENSITY TESTING 1950 COLOGUARD (AGES 45-75) - COL ON CA SCREENING 1949 COLON MONITORING 1949 COLONOSCOPY - COLON CA SCREENING 1949 CT COLONOGRAPHY - COLON CA SCREENING 1950 Colorectal Cancer Screening 1949 FIT - COLON CA SCREENING 1949 FLEX SIG - COLON CA SCREENING 1949 LIPID TESTING 1949 MAMMOGRAM 1949 HEPATITIS C SCREENING 06/01/1967 DTAP/TDAP/TD VACCINES (1 - Tdap) 1968 PNEUMOCOCCAL VACCINE 50+ (1 of 1 - PCV) 1999 ZOSTER VACCINE (1 of 2) 1999 COVID-19 VACCINE (2023-2 5 season) 2024 Respiratory Syncytial Virus (RSV) Vaccine Pt: or over 60 yrs (1 - 1-dose 75+ series) 2024 DEPRESSION SCREENING 09/24/2024 INFLUENZA VACCINE (Season Ended) 2025 HEPATITIS B VACCINE Aged Out No longe r eligible based on patient's age to complete this topic HIB VACCINE Aged Out No longer eligi ble based on patient's age to complete this topic HPV VACCINE Aged Out No longer eligi ble based on patient's age to complete this topic MENINGOCOCCAL (Group B) VACC INE SHARED DECISION-MAKING Aged Out No longer eligibl e based on patient's age to complete this topic MENINGOCOCCAL GROUPS A/C/Y/W VACCINE Aged Out No longer eligible b ased on patient's age to complete this topic Insurance [facility] Address: [facility] [address] [place] [address]
--- OUTSIDE RECORDS SUMMARY | 2025-03-11 11:34 | XMS_ITS ---
Author Organization [facility] Address [address] [place] [address] Care Team Providers Care Patient Accounts Manager Name Role Phone Thierry Mora DO Primary Care Provider +1- [phone] Active Problems Problem Noted Date Diagnosed Date [...] basis. Assessment & Plan (11/02/2023 2:13 PM CHAIN PEGGER): No evidence of stenosis on her carotid duplex. CTA from [place] with 50% stenosis of the right common carotid artery. Discussed findings with the patient and her , ultimately this would not lead to her bihemispheric strokes. I suspect this was due to something cardiac in origin. Continue risk factor modification with ASA statin therapy and good blood pressure control. Repeat carotid duplex in 1 year. Assessment & Plan (10/25/2023 2:19 PM CHAIN PEGGER): Previous CVA in November of 2022 with [...] 02/23/2023 Assessment & Plan (11/02/2023 2:13 PM CHAIN PEGGER): Stable continue losartan 50 mg. Mixed hyperlipidemia 02/23/2023 Assessment & Plan (11/02/2023 2:13 PM CHAIN PEGGER): Stable continue Lipitor 20 mg. Open fracture of distal end of right tibia 07/18 Overview (07/18/2020): Added automatically from request for surgery [id number] Closed fracture of part of fibula 07/18/2020 Overview (07/18/2020): Added automatically from request for surgery [id number] Closed fracture of part of tibia 07/18/2020 Overview (07/20/2020): Added automatically from request for surgery [id number] Pain in wrist 01/28/2015 Breast cancer, female 04/17/2011 Current Treatment and Therapy Plans No current plan information found. Past Treatment and Therapy Plans No past plan information found. Lifetime Dose Tracking * Chemical Lifetime Dose Automatic Entry Manual Entr y Fluoro Time 3.6 minutes 3.6 minutes 0 minutes Air kerma at the reference point (Ka,r) 179.67 mGy 7 .67 mGy 172 mGy DLP 589 mGycm 589 mGycm 0 mGycm
--- OUTSIDE RECORDS SUMMARY | 2025-03-11 11:34 | XMS_ITS | Encounter Summary ---
Author Organization [facility] Address [address] [place] [address] Care Team Providers Care Telemarketing Representative Name Role Phone Thierry Mora DO Primary Care Provider +1- [phone] Encounter Details Date Type Department Care Team (Late st Contact Info) Description 10/06/2024 Cardiology Conference Cardiology Juan Cooney MD [address] [facility] [address] [facility], [address] [place] [address] Social History Tobacco Use Types Packs/Day Years Used Date Smoking Tobacco: Former Cigarettes Smokeless Tobacco: Never Alcohol Use Standard Drinks/Week Comments Yes 15 [...] on file Legal Sex Female 11:28 AM CONSERVATION BIOLOGY PROFESSOR Gender Identity Not on file Sexual Orientation Not on file documented as of this encounter Plan of Treatment Not on file documented as of this encounter Visit Diagnoses Not on filedocumented in this encounter Care Teams Telemarketing Representative Relationship Specialty Start Date End Date Thierry Mora DO PCP - General Internal Medicine 06/14/23 documented as of this encounter
--- OUTSIDE RECORDS SUMMARY | 2025-03-11 11:34 | XMS_ITS | Encounter Summary ---
Author Organization [facility] Address [address] [place] [address] Care Team Providers Care Rn Psych Name Role Phone Thierry Mora DO Primary Care Provider +1- [phone] Encounter Details Date Type Department Care Team (Late st Contact Info) Description 02/11/2025 Telephone [facility] Group Cardiology [address] [place] [address] Juan Cooney MD [address] [facility] [address] [address] [facility], [address] [place] [address] Social History Tobacco Use Types [...] on file Legal Sex Female 11:28 AM RV PARTS AND SERVICE DIRECTOR Gender Identity Not on file Sexual Orientation Not on file documented as of this encounter Miscellaneous Notes * Telephone Encounter - Cindy Sanchez RN - 02/11/2025 3:02 PM CDT Spoke with pt, reviewed response below from DK. Pt verbalizes understanding. * Telephone Encounter - Cindy Sanchez RN - 02/11/2025 9:01 AM CDT Will forward to DK. Please advise. * Telephone Encounter - Clemencia Sanches - 02/11/2025 8:52 AM CDT Pt states she has severe aortic stenosis and [place] She wants to know if this is safe or if it will affect her condition. Please advise, thank you. Contact: documented in this encounter Plan of Treatment Not on file documented as of this encounter Visit Diagnoses Not on filedocumented in this encounter Care Teams Rn Psych Relationship Specialty Start Date End Date Thierry Mora DO PCP - General Internal Medicine 06/14/23 documented as of this encounter
--- OUTSIDE RECORDS SUMMARY | 2025-03-11 11:34 | XMS_ITS | Encounter Summary ---
Author Organization [facility] Address [address] [place] [address] Care Team Providers Care Office Machine Servicer Name Role Phone Unavailable Primary Care Provider Unavailabl e Encounter Details Date Type Department Care Team (Late st Contact Info) Description 07/10/[address] [facility] Care D[facility] Lab [address] [place] [address] Ramos Villeda MD [address] [place] [address] Social History Tobacco Use Types Packs/Day Years Used Date Smoking Tobacco: Never Assessed Comments Unknown Sex and Gender Information Value Date Recorded Sex Assigned at Not on file Legal Sex Female 12:36 PM VOICE ENGINEER Gender Identity Not on file Sexual Orientation Not on file documented as of this encounter Plan of Treatment Not on file documented as of this encounter Procedures Procedure Name Priority Date/Time Associated Diagnosis Comments DERMATOPATHOLOGY Routine 07/09/2018 12:0 0 AM CDT documented in this encounter Results * DERMATOPATHOLOGY (07/09/2018 12:00 AM CDT) Case Report Dermatopathology Report Case: [id number] Authorizing Provider: Ramos Villeda MD Collected: 07/09/2018 12:00 AM Pathologist: Laly Newman MD Received: 07/10/2018 12:21 PM Specimen: Skin, right mandaen 8 4:47 PM CDT DERMATOPATHOLOGY LABORATORY Final Diagnosis Specimen A. SKIN, right mandaen: PIGMENTED SEBORRHEIC KERATOSIS (L82.1) 4:47 PM CDT DERMATOPATHOLOGY LABORATORY at 1647 CDT Clinical History R/O SCC, ISK. 4:47 PM CDT DERMATOPATHOLOGY LABORATORY Gross Description Specimen A: Received is one formalin filled container labeled with the patient's name and designated right mandaen. The specimen consists of a shave biopsy measuring [id number]. Jar 0. 4:47 PM CDT DERMATOPATHOLOGY LABORATORY Microscopic Description Specimen A. SKIN, right mandaen: Sections show an acanthotic lesion composed of relatively uniform keratinocytes. There is hyperkeratosis and pseudo horn cysts. Pigment is present in the keratinocytes composing this tumor. 4:47 PM CDT DERMATOPATHOLOGY LABORATORY Disclaimer An external and internal positive and negative controls are appropriate for the histochemical, immunohistochemical and immunofluorescence stain(s) in this case (if any), except where stated explicitly. The performance characteristics of the stain(s) cited in this report were developed and its performance characteristic determined by the Dermatopathology Laboratory at [facility]. These tests need not be, and therefore are not, approved by the [place] Food and Drug Administration. The tests are used for clinical purposes. Billing Codes Specimen Charges Stain Charges 96770 1 4:47 PM CDT DERMATOPATHOLOGY LABORATORY Embedded Images 4:47 PM CDT DERMATOPATHOLOGY LABORATORY Pathology/Cytolog y TISSUE SPECIMEN FROM SKIN / Unknown 07/09/2018 07/10/2018 12:21 PM CDT us Ramos Villeda MD LAB - PATHOLOGY/CYTOLOGY ORD ERABLES Final Result DERMATOPATHOLOGY LABORATORY [facility] - Department of Dermatology [address] [place] [address], [facility] [phone] documented in this encounter Visit Diagnoses Not on filedocumented in this encounter
== END 2025-03-11 10:15 | disposition home or self-care (01) ==
LOC: ANHIMG 10:15
PROVIDERS: PCP Nurse Practitioner; Visit Provider Nurse Practitioner
DX: Z78.0 Asymptomatic menopausal state (principal); M85.88 Other specified disorders of bone density and structure, other site; M81.0 Age-related osteoporosis without current pathological fracture; M85.852 Other specified disorders of bone density and structure, left thigh; M85.851 Other specified disorders of bone density and structure, right thigh
CPT/HCPCS: 77080

== ENCOUNTER 2025-05-22 12:51 | Outpatient (NON) | payer OTHER, SELFPAY ==
--- OUTSIDE RECORDS SUMMARY | 2025-05-22 12:57 | XMS_ITS ---
Author Organization [facility] Address [address] [place] [address] Care Team Providers Care Rehabilitation Director Name Role Phone Thierry Mora DO Primary Care Provider +1- [phone] Juan Cooney MD Unavailable Jose Donnelly MD Unavailable Active Problems Problem Noted Date Diagnosed Date [...] basis. Assessment & Plan (11/02/2023 2:13 PM QUALITY CONTROL OPERATOR): No evidence of stenosis on her carotid duplex. CTA from [place] with 50% stenosis of the right common carotid artery. Discussed findings with the patient and her , ultimately this would not lead to her bihemispheric strokes. I suspect this was due to something cardiac in origin. Continue risk factor modification with ASA statin therapy and good blood pressure control. Repeat carotid duplex in 1 year. Assessment & Plan (10/25/2023 2:19 PM QUALITY CONTROL OPERATOR): Previous CVA in November of 2022 with [...] 02/23/2023 Assessment & Plan (11/02/2023 2:13 PM QUALITY CONTROL OPERATOR): Stable continue losartan 50 mg. Mixed hyperlipidemia 02/23/2023 Assessment & Plan (11/02/2023 2:13 PM QUALITY CONTROL OPERATOR): Stable continue Lipitor 20 mg. Open fracture of distal end of right tibia 07/18 Overview (07/18/2020): Added automatically from request for surgery [id number] Closed fracture of part of fibula 07/18/2020 Overview (07/18/2020): Added automatically from request for surgery [id number] Closed fracture of part of tibia 07/18/2020 Overview (07/20/2020): Added automatically from request for surgery [id number] Pain in wrist 01/28/2015 Breast cancer, female 04/17/2011 Current Treatment and Therapy Plans No current plan information found. Past Treatment and Therapy Plans No past plan information found. Lifetime Dose Tracking * Chemical Lifetime Dose Automatic Entry Manual Entr y Fluoro Time 11 minutes 3.6 minutes 7.4 minutes Air kerma at the reference point (Ka,r) 179.67 mGy 7 .67 mGy 172 mGy DLP 589 mGycm 589 mGycm 0 mGycm
--- OUTSIDE RECORDS SUMMARY | 2025-05-22 12:57 | XMS_ITS | Clinical Summary ---
Author Organization [facility] Address [address] [place] [address] Care Team Providers Care Refrigeration Installer Name Role Phone Thierry Mora DO Primary Care Provider [phone] Juan Hernandez MD Unavailable Jose Donnelly MD Unavailable [phone] Allergies Active Allergy Reactions Criticality Noted Date [...] basis. Assessment & Plan (11/02/2023 2:13 PM CONTENT CURATOR): No evidence of stenosis on her carotid duplex. CTA from [place] with 50% stenosis of the right common carotid artery. Discussed findings with the patient and her , ultimately this would not lead to her bihemispheric strokes. I suspect this was due to something cardiac in origin. Continue risk factor modification with ASA statin therapy and good blood pressure control. Repeat carotid duplex in 1 year. 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 Mixed hyperlipidemia 02/23/2023 Assessment & Plan (11/02/2023 2:13 PM CONTENT CURATOR): Stable continue Lipitor 20 mg. Open fracture of distal end of right tibia 07/18 Overview (07/18/2020): Added automatically from request for surgery [id number] Closed fracture of part of fibula 07/18/2020 Overview (07/18/2020): Added automatically from request for surgery [id number] Closed fracture of part of tibia 07/18/2020 Overview (07/20/2020): Added automatically from request for surgery [id number] Pain in wrist 01/28/2015 Breast cancer, female 04/17/2011 Encounters Date Type Department Care Team Description 05/19/2025 Orders Only Cardiovascular and Thoracic Surgery [address] [facility] [address] [place] [address] Shona Viera NP Aortic stenosis, severe (Primary Dx) 05/15/2025 Documentation Cardiovascular and Thoracic Surgery [address] [facility] [address] [place] [address] Maribel Ornelas 05/13/2025 Telephone [facility] Cardiology [address] [facility] [address] [place] [phone] Juan Hernandez MD 03/12/2025 Results Follow-Up [facility] Cardiology [address] [facility] [address] [place] [phone] Juan Hernandez MD Transthoracic Echo (TTE) Complete W Doppler/CF 03/11/2025 3:00 PM CDT Ancillary Procedure [facility] Cardiology [address] [facility] [address] [place] [id number] Nonrheumatic aortic valve stenosis from Last 3 Months Immunizations Immunization Administration [...] Nonrheumatic aortic (valve) stenosis COPD (chronic obstructive pulmonary disease) Family History Medical History Relation Name Comments Arthritis Mother Family history of arthritis - (Added by MARIAN Conv) Hypertension Mother Family history of hypertension - (Added by MARIAN Conv) Anesthesia problems Neg Hx Relation Name [...] on file 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 Gender Identity Not on file Sexual Orientation Not on file Obstetrics History Last Filed Vital Signs Vital Sign Reading Time Taken Comments Blood Pressure 112/76 01/21/2025 10:51 AM CDT Pulse 73 01/21/2025 10:51 AM CDT Temperature 36.4 C (97.6 F) 08/25/2024 9:45 AM CONTENT CURATOR Respiratory Rate 18 10/16/2024 2:24 PM CONTENT CURATOR Oxygen Saturation 96% 01/21/2025 10:51 AM CDT [...] 1999 Well Visit 65+ 2014 Influenza Vaccine (#1) 2025 0, 06/24/2020, 11/02/2016, Additional history exists Fall Risk Assessment 08/25/2025 08/25/2024 Medical Devices Implanted Type Area Senior Product Designer Device Identifier Shelf Expiration Date Model / Serial / Lot Synthes 204.838 3.5mm 6mm 38mm 2.5mm Self Tap Small Hexagonal Socket Low Profile - S0 - [id number] Implanted:Qty: 1 on 07/21/2020 by Sasha Woods MD at [facility] Screw Right: Tibia Synthes I 204.838 / 0 / Synthes 212.105 3.5mm 2.9mm 18mm Self Tap Lock Stardrive Conical Head T15 Full - S0 - [id number] Implanted:Qty: 1 on 07/21/2020 by Sasha Woods MD at [facility] Screw Right: Tibia Synthes I 212.105 / 0 / Synthes 212.116 3.5mm 2.9mm 38mm Self Tap Lock Stardrive Conical Head T15 Full - S0 - [id number] Implanted:Qty: 1 on 07/21/2020 by Sasha Woods MD at [facility] Screw Right: Tibia Synthes I 212.116 / 0 / Synthes 212.118 3.5mm 2.9mm 42mm Self Tap Lock Stardrive Conical Head Full Thread - S0 - [id number] Implanted:Qty: 1 on 07/21/2020 by Sasha Woods MD at [facility] Screw Right: Tibia Synthes I 212.118 / 0 / Synthes 212.104 3.5mm 2.9mm 16mm Self Tap Lock Stardrive Conical Head T15 Full - S0 - [id number] Implanted:Qty: 1 on 07/21/2020 by Sasha Woods MD at [facility] Screw Right: Tibia Synthes I 212.104 / 0 / Synthes 204.822 3.5mm 6mm 22mm 2.5mm Self Tap Small Hexagonal Socket Low Profile - S0 - [id number] Implanted:Qty: 2 on 07/21/2020 by Sasha Woods MD at [facility] Screw Right: Tibia Synthes I 204.822 / 0 / Synthes 204.824 3.5mm 6mm 24mm 2.5mm Self Tap Small Hexagonal Socket Low Profile - S0 - [id number] Implanted:Qty: 1 on 07/21/2020 by Sasha Woods MD at [facility] Screw Right: Tibia Synthes I 204.824 / 0 / Synthes 204.750 3.5mm 6mm 150mm 2.5mm Self Tap Low Profile Small Hexagonal Socket - S0 - [id number] Implanted:Qty: 1 on 07/21/2020 by Sasha Woods MD at [facility] Screw Right: Tibia Synthes I 204.750 / 0 / Synthes 02.112.518 Lcp Combi 161mm 8 Hole Low Profile Round Edge Tibial Right Distal - [id number] Implanted:Qty: 1 on 07/21/2020 by Sasha Woods MD at [facility] Right: Tibia Synthes I 02.112.518 / / Procedures Procedure Name Priority Date/Time Associated Diagnosis Comments TRANSTHORACIC ECHO (TTE) COMPLETE W DOPPLER/CF WO CONTRAST Routine 03/11/2025 4:17 PM CDT Nonrheumatic aortic valve stenosis from Last 3 Months Results * TRANSTHORACIC ECHO (TTE) COMPLETE W DOPPLER/CF WO CONTRAST (03/11/2025 4:17 PM CDT) EF Mod BP 59 % CONS SCIMAGE Anatomical Region Laterality Modality Ultrasound 03/11/2025 3:08 PM CDT Narrative 03/11/2025 10:20 PM CDT [facility] Cardiology [address] [facility] [address], [place] [address] [address] [facility] [address], [place] [address] P:[phone] P:[phone] Echocardiographic Report Patient Name: VERONIKA GRACIA S : 1950 Study Date: 03/11/2025 3:08:03 PM Gender: F Tech: [facility] Location: [facility] Provider: JUAN HERNANDEZ Height(Cm): 163 BSA: 1.6 Weight(Kg): 56.7 Heart Rate: 77 BP: 112 / 76 Quality: Good Order Provider: JUAN HERNANDEZ PROCEDURES: Echocardiographic Report: Transthoracic echocardiogram with complete 2D, M-Mode, and color Doppler examination. With Strain Analysis. INDICATIONS: I35.0 Nonrheumatic aortic (valve) stenosis. MEASUREMENTS: 2D/MM Value Range Doppler Value Range EF Mod BP 59 % [ 54 - 74 ] CHAPARRITA Vmax 0.87 cm2 [ 2.00 - 4.00 ] LVIDd 2D 3.71 cm [ 3.80 - 5.20 ] AV Mean PG 31 mmHg LVIDs 2D 2.49 cm [ 2.20 - 3.50 ] AV Peak Mark 3.55 m/s [ 1.00 - 1.70 ] LVPWd 2D 1.15 cm [ 0.60 - 0.90 ] AV Peak PG 51 mmHg IVSd 2D 1.18 cm [ 0.60 - 0.90 ] AV VTI 82.45 cm LA Volume Index 23 cc/m2 [ 16 - 34 ] LVOT Diam 1.97 cm [ 1.70 - 2.10 ] LVOT Peak Mark 0.88 m/s [ 0.70 - 1.10 ] LVOT VTI 22.11 cm MV E Peak Mark 0.81 m/s [ 0.60 - 1.30 ] MV A Peak Mark 1.21 m/s [ 1.00 - 1.20 ] MV Decel Time 122 msec [ 104 - 258 ] PV Peak Mark 0.72 m/s [ 0.40 - 0.80 ] TR Peak Mark 2.83 m/s [ 1.00 - 2.80 ] TR Peak PG 32 mmHg Lateral E` 0.07 m/s [ 0.10 - 0.15 ] E` 0.04 m/s E/E` 11 2D/MM Value Range Doppler Value Range - FINDINGS: Interpretation Site: Exam was interpreted at home. Left Ventricle: Normal left ventricular size. Moderate concentric left ventricular hypertrophy. Normal left ventricular size. Normal global left ventricular systolic function. Impaired diastolic relaxation Grade I. Increased left heart filling pressures based on elevated E/E`. Ejection fraction is measured at 59 %. Global Longitudinal Strain is -19 %. Right Ventricle: Normal right ventricular size. Normal right ventricular systolic function. Left Atrium: The left atrium is normal in size. Right Atrium: The right atrium is normal in size. Atrial Septum: Normal atrial septum. Mitral Valve: Mitral valve leaflets appear mildly thickened. Aortic Valve: Severe aortic stenosis. Peak Velocity of 3.55 m/s. Mean gradient of 31.0 mmHg. Valve area of 0.8 cm2. Aortic cusps appear severely calcified. Trace aortic valve regurgitation. Tricuspid Valve: Normal appearance of the tricuspid valve. Right ventricular systolic pressure could not be estimated due to inadequate visualization of the tricuspid regurgitation jet. Pulmonic Valve: Normal appearance of the pulmonic valve. Pericardium: Normal pericardium with no significant pericardial effusion. Aorta: Sinus of Valsalva 3.7 cm. Ascending aorta is mildly dilated. Ascending Aorta 3.8 cm. Mild aortic root calcification. IVC: Normal size and normal respiratory collapse consistent with normal right atrial pressure (<5 mmHg). CONCLUSIONS: Normal left ventricular size. Moderate left ventricular hypertrophy. Normal global left ventricular systolic function. Impaired diastolic relaxation Grade I. Increased left heart filling pressures based on elevated E/E`. Ejection fraction is measured at 59 %. Global Longitudinal Strain is -19 %. Stroke volume index 22 ml per m2. Normal right ventricular size and systolic function. Mitral valve leaflets appear mildly thickened. No significant MR. Aortic valve is severely calcified with restricted leaflet mobility. Severe aortic stenosis with relatively low mean gradient. Peak Velocity of 3.55 m/s. Mean gradient of 31.0 mmHg. Valve area of 0.8 cm2. DVI 0.24. Trace aortic valve regurgitation. Right ventricular systolic pressure could not be estimated due to inadequate visualization of the tricuspid regurgitation jet. Electronically Signed By: Juan Hernandez MD, [facility] 03/11/2025 10:19:15 PM CDT Procedure Note Juan Hernandez MD - 03/11/2025 [facility] Medical [facility] Cardiology [address] [facility] [address], [place] [address] [address] [facility] [address], [place] [address] P:[phone] P:[phone] Echocardiographic Report Patient Name: VERONIKA GRACIA S : 1950 Study Date: 03/11/2025 3:08:03 PM Gender: F Tech: [facility] Location: [facility] Provider: JUAN HERNANDEZ Height(Cm): 163 BSA: 1.6 Weight(Kg): 56.7 Heart Rate: 77 BP: 112 / 76 Quality: Good Order Provider: JUAN HERNANDEZ PROCEDURES: Echocardiographic Report: Transthoracic echocardiogram with complete 2D, M-Mode, and color Dopplerexamination. With Strain Analysis. INDICATIONS: I35.0 Nonrheumatic aortic (valve) stenosis. MEASUREMENTS: 2D/MM Value Range Doppler ValueRange EF Mod BP 59 % [ 54 - 74 ] CHAPARRITA Vmax 0.87cm2 [ 2.00 - 4.00 ] LVIDd 2D 3.71 cm [ 3.80 - 5.20 ] AV Mean PG 31mmHg LVIDs 2D 2.49 cm [ 2.20 - 3.50 ] AV Peak Mark 3.55m/s [ 1.00 - 1.70 ] LVPWd 2D 1.15 cm [ 0.60 - 0.90 ] AV Peak PG 51mmHg IVSd 2D 1.18 cm [ 0.60 - 0.90 ] AV VTI 82.45cm LA Volume Index 23 cc/m2 [ 16 - 34 ] LVOT Diam 1.97 cm[ 1.70 - 2.10 ] LVOT Peak Mark 0.88 m/s [ 0.70 - 1.10 ] LVOT VTI 22.11 cm MV E Peak Mark 0.81 m/s [ 0.60 - 1.30 ] MV A Peak Mark 1.21 m/s [ 1.00 - 1.20 ] MV Decel Time 122 msec [ 104 - 258 ] PV Peak Mark 0.72 m/s [ 0.40 - 0.80 ] TR Peak Mark 2.83 m/s [ 1.00 - 2.80 ] TR Peak PG 32 mmHg Lateral E` 0.07 m/s [ 0.10 - 0.15 ] E` 0.04 m/s E/E` 11 2D/MM Value Range Doppler ValueRange - FINDINGS: Interpretation Site: Exam was interpreted at home. Left Ventricle: Normal left ventricular size. Moderate concentric left ventricularhypertrophy. Normal left ventricular size. Normal global left ventricular systolic function.Impaired diastolic relaxation Grade I. Increased left heart filling pressures basedon elevated E/E`. Ejection fraction is measured at 59 %. Global Longitudinal Strain is-19 %. Right Ventricle: Normal right ventricular size. Normal right ventricular systolicfunction. Left Atrium: The left atrium is normal in size. Right Atrium: The right atrium is normal in size. Atrial Septum: Normal atrial septum. Mitral Valve: Mitral valve leaflets appear mildly thickened. Aortic Valve: Severe aortic stenosis. Peak Velocity of 3.55 m/s. Mean gradient of 31.0mmHg. Valve area of 0.8 cm2. Aortic cusps appear severely calcified. Trace aortic valveregurgitation. Tricuspid Valve: Normal appearance of the tricuspid valve. Right ventricular systolicpressure could not be estimated due to inadequate visualization of the tricuspidregurgitation jet. Pulmonic Valve: Normal appearance of the pulmonic valve. Pericardium: Normal pericardium with no significant pericardial effusion. Aorta: Sinus of Valsalva 3.7 cm. Ascending aorta is mildly dilated. AscendingAorta 3.8 cm. Mild aortic root calcification. IVC: Normal size and normal respiratory collapse consistent with normal rightatrial pressure (<5 mmHg). CONCLUSIONS: Normal left ventricular size. Moderate left ventricular hypertrophy.Normal global left ventricular systolic function. Impaired diastolic relaxation Grade I.Increased left heart filling pressures based on elevated E/E`. Ejection fraction ismeasured at 59 %. Global Longitudinal Strain is -19 %. Stroke volume index 22 ml per m2. Normal right ventricular size and systolic function. Mitral valve leaflets appear mildly thickened. No significant MR. Aortic valve is severely calcified with restricted leaflet mobility.Severe aortic stenosis with relatively low mean gradient. Peak Velocity of 3.55 m/s.Mean gradient of 31.0 mmHg. Valve area of 0.8 cm2. DVI 0.24. Trace aortic valveregurgitation. Right ventricular systolic pressure could not be estimated due toinadequate visualization of the tricuspid regurgitation jet. Electronically Signed By: Juan Hernandez MD, [facility] 03/11/2025 10:19:15 PM CDT Juan Hernandez MD CV ECHO PROCEDURES Final Result from Last 3 Months Insurance [facility] [id number] [facility] [id number] [facility] [id number] Advance Directives For more information, please contact: [phone] * Full Code (Latest Code Status on File) Date Activated Date Inactivated Comments 07/18/2020 2:32 PM 07/23/2020 6:57 PM Care Teams Refrigeration Installer Relationship Specialty Start Date End Date Thierry Mora DO PCP - General Internal Medicine 06/14/23 Juan Hernandez MD [address] [place] [address] Referring Physician Cardiology 05/15/25 Jose Donnelly MD [address] [address] Consulting Physician Cardiothoracic Surgery 05/15/25
--- OUTSIDE RECORDS SUMMARY | 2025-05-22 12:57 | XMS_ITS | Clinical Summary ---
Author Organization [facility] Address [address] [place] [address] Care Team Providers Care Business Continuity Global Director Name Role Phone Unavailable Primary Care Provider Unavailabl e Source Comments [facility],non-[facility] Affiliates and Associated Physician Practices is amultiple site organization consisting of ambulatory clinics and hospital sitesin [place], [place], [place] and [place]. This disclosure is being madepursuant to the Care Everywhere program and may not contain all information available regarding this patient. 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
--- OUTSIDE RECORDS SUMMARY | 2025-05-22 12:57 | XMS_ITS | Encounter Summary ---
Author Organization [facility] Healthcare Address [address] [place] [address] Care Team Providers Care Clinic Clerk Name Role Phone Thierry Mora DO Primary Care Provider [phone] Juan Cooney MD Unavailable Jose Donnelly MD Unavailable [phone] Encounter Details Date Type Department Care Team (Late st Contact Info) Description 10/06/2024 Cardiology Conference Cardiology Juan Cooney MD [address] [facility] [address] [place] [address] Social History Tobacco Use Types [...] on file 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 Gender Identity Not on file Sexual Orientation Not on file documented as of this encounter Plan of Treatment Not on file documented as of this encounter Visit Diagnoses Not on filedocumented in this encounter Care Teams Clinic Clerk Relationship Specialty Start Date End Date Thierry Mora DO PCP - General Internal Medicine 06/14/23 Juan Cooney MD [address] [facility] [address] [facility] [address] [place] [address] Referring Physician Cardiology 05/15/25 Jose Donnelly MD [address] [place] [address] Consulting Physician Cardiothoracic Surgery 05/15/25 documented as of this encounter
--- OUTSIDE RECORDS SUMMARY | 2025-05-22 12:57 | XMS_ITS | Encounter Summary ---
Author Organization [facility] Healthcare Address [address] [place] [address] Care Team Providers Care Tonguer Name Role Phone Thierry Mora DO Primary Care Provider [phone] Juan Cooney MD Unavailable Jose Donnelly MD Unavailable [phone] Reason for Referral * Cardiology (Routine) - Authorized Specialty Diagnoses / Procedures Referred By Contac t Referred To Contact Diagnoses Aortic stenosis, severe Procedures ECG 12 lead Shona Viera NP [address] [place] [address] Phone: tel: fax: 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 Gender Identity Not on file Sexual Orientation Not on file documented as of this encounter Plan of Treatment Scheduled Orders Name Type Priority Associated Diagnoses Orde r Schedule ECG 12 lead ECG Routine Aortic stenosis, severe 1 Occurrences starting 05/19/2025 until 05/19/2026 documented as of this encounter Visit Diagnoses Diagnosis Aortic stenosis, severe- Primary documented in this encounter Care Teams Tonguer Relationship Specialty Start Date End Date Thierry Mora DO PCP - General Internal Medicine 06/14/23 Juan Cooney MD [address] [facility] [address] [place] [address] Referring Physician Cardiology 05/15/25 Jose Donnelly MD [address] [place] [address] Consulting Physician Cardiothoracic Surgery 05/15/25 documented as of this encounter
--- OUTSIDE RECORDS SUMMARY | 2025-05-22 12:57 | XMS_ITS | Encounter Summary ---
Author Organization [facility] Address [address] [facility] [place] [address] Care Team Providers Care Alberene Stone Setter Name Role Phone Unavailable Primary Care Provider Unavailabl e Encounter Details Date Type Department Care Team (Late st Contact Info) Description 07/10/2018 Lab Requisition [facility] [address] [place] [address] Ramos Villeda MD [address] [place] [address] Social History Tobacco Use Types Packs/Day Years Used Date Smoking Tobacco: Never Assessed Comments Unknown Sex and Gender Information Value Date Recorded Sex Assigned at Not on file 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 Gender Identity Not on file Sexual Orientation Not on file documented as of this encounter Plan of Treatment Not on file documented as of this encounter Procedures Procedure Name Priority Date/Time Associated Diagnosis Comments DERMATOPATHOLOGY Routine 07/09/2018 12:0 0 AM CDT documented in this encounter Results * DERMATOPATHOLOGY (07/09/2018 12:00 AM CDT) Case Report Dermatopathology Report Case: [id number] Authorizing Provider: Ramos Villeda MD Collected: 07/09/2018 12:00 AM Pathologist: Laly Newman MD Received: 07/10/2018 12:21 PM Specimen: Skin, right uatsdin 8 4:47 PM CDT DERMATOPATHOLOGY LABORATORY Final Diagnosis Specimen A. SKIN, right uatsdin: PIGMENTED SEBORRHEIC KERATOSIS (L82.1) 4:47 PM CDT DERMATOPATHOLOGY LABORATORY at 1647 CDT Clinical History R/O SCC, ISK. 4:47 PM CDT DERMATOPATHOLOGY LABORATORY Gross Description Specimen A: Received is one formalin filled container labeled with the patient's name and designated right uatsdin. The specimen consists of a shave biopsy measuring [id number]. Jar 0. 4:47 PM CDT DERMATOPATHOLOGY LABORATORY Microscopic Description Specimen A. SKIN, right uatsdin: Sections show an acanthotic lesion composed of [...] characteristic determined by the Dermatopathology Laboratory at [facility]. These tests need not be, and therefore are not, approved by the [place] Food and Drug Administration. The tests are used for clinical purposes. Billing Codes Specimen Charges Stain Charges 87429 1 4:47 PM CDT DERMATOPATHOLOGY LABORATORY Embedded Images 4:47 PM CDT DERMATOPATHOLOGY LABORATORY Pathology/Cytolog y TISSUE SPECIMEN FROM SKIN / Unknown 07/09/2018 07/10/2018 12:21 PM CDT us Ramos Villeda MD LAB - PATHOLOGY/CYTOLOGY ORD ERABLES Final Result DERMATOPATHOLOGY LABORATORY [facility] - Department of Dermatology [address] [facility] [place] [address], [facility] [phone] documented in this encounter Visit Diagnoses Not on filedocumented in this encounter
[2025-05-22 21:06] LABS: Add Urine Microscopic? YES; Appearance Urine Turbid (Clear); Glucose Urine UA Negative (Negative); Leukocyte Esterase Ur 3+ LEU/UL (Negative); Nitrate Urine Positive (Negative); Non Pathogenic Casts >20; Specific Grav Ur 1.021 (1.001-1.035)
[2025-05-22 21:11] LABS: Need Manual Microscopic Reviewed
== END 2025-05-22 12:52 | disposition home or self-care (01) ==
LOC: ANHGOSHLAB 12:52
PROVIDERS: PCP Internal Medicine; Visit Provider Nurse Practitioner
DX: R30.0 Dysuria (principal); N39.0 Urinary tract infection, site not specified
CPT/HCPCS: 81001; 87086